=== PATIENT | female | born 1985 | race Caucasian/White ===

== ENCOUNTER → 2016-12-18 | Outpatient (CLI) | payer OTHER ==
--- NOTE | 2016-12-18 17:18 | CONS ---
DATE OF CONSULTATION: 12/18/2016 CONSULTATION/NEW PATIENT EVALUATION HISTORY OF PRESENT ILLNESS/SLEEP-WAKE EVALUATION: 31-year-old lady who has been evaluated in the sleep center for snoring, witnessed episodes of stopped breathing and excessive daytime sleepiness. SLEEP SCHEDULE: The patient usual sleep schedule from around 10:00 p.m. to 5:15 to 6:00 a.m. on working days and from 10:00 p.m. to 7:00 a.m. on weekends. FALLING ASLEEP: Sometimes she has problem with falling asleep. The patient has a TV set in bedroom. DURING SLEEP: She wakes up from sleep up to 3 times with one episode of nocturia. She snores. Has witnessed episodes of stopped breathing during the sleep. By herself she wakes up with gasping for air and choking. Positive history of sweating during sleep for last 5 years. Patient increased her weight around 135 pounds up to around 185 pounds. DURING THE DAY/WAKE STATE: In the morning she wakes up tired, has problems to pay attention, falling asleep during the day, worrying about her sleep, has problems with memory, concentration and irritability and depression. [place] Sleepiness Scale significantly increased to 17. No history hypnagogical hallucinations, sleep paralysis or cataplexy. Past medical history is positive for asthma, allergies, irregular menstrual periods, polycystic ovary syndrome, vitamin D deficiency. PAST SURGICAL HISTORY: None. SOCIAL HISTORY: Negative for smoking. Alcohol consumption occasional. REVIEW OF SYSTEMS: Awakenings from sleep, sleepiness during the day. No fevers. No double vision. No recent chest pain. No shortness of breath. No abdominal pain. No bleeding episodes. No blood in urine. No seizure episodes. FAMILY HISTORY: Hypertension, angina, heart problems, stroke, arthritis, asthma, sleep apnea, snoring, cancer, diabetes. PHYSICAL EXAMINATION: GENERAL: lady without distress. BP 110/72, HR 56, RR 16. Height 5 foot 3. Weight 165. BMI 29.2. Neck 14-1/4 inches in circumference. Temperature 97.9. Oxygen saturation at room air 98%. HEENT: PERRLA, EOMI evaluation of oropharynx showed moderately to extremely low position of soft palate. Tonsils present. Small oropharyngeal air space, and slight restriction of nasal breathing. NECK: Supple. No JVD. Thyroid is not palpable. LUNGS: Clear to percussion and to auscultation. Good air exchange. No wheezing or rhonchi. HEART: S1, S2 regular. No murmurs, gallops or rubs. ABDOMEN: Slightly obese. Soft and nontender. Bowel sounds are present. No organomegaly appreciated. EXTREMITIES: No clubbing or cyanosis. MANAGER PHOTO: Awake, alert, and oriented x3. Cranial nerves 2 to 7 intact. There is no fasciculation or atrophy noted. No focal deficits observed. IMPRESSION: 1. Snoring, witnessed episodes of stopped breathing during sleep, small oropharyngeal air space, with low position of soft palate, and some increasing size of tonsils, obstructive sleep apnea-hypopnea syndrome. 2. Overweight, borderline obesity, BMI 29.2. 3. Patient presented with symptoms of excessive daytime sleepiness, [place] sleepiness scale increased significantly to 17. Differential diagnoses include hypersomnia but no history of cataplexy, hypnogogical hallucinations or sleep paralysis, which is against narcolepsy. 4. Asthma. 5. Allergies. 6. Polycystic ovary syndrome. 7. Vitamin D deficiency. PLAN: 1. Polysomnography for evaluation of patient's breathing during sleep. 2. CPAP/BiPAP titration if sleep study confirms obstructive sleep apnea-hypopnea syndrome. 3. Preferable position during sleep on the side. 4. No driving if patient feels any sleepiness. Patient is aware of civil and criminal liability for unsafe driving. 5. I will see patient for follow-up visit to explain results of the testing and following plan. Thank you very much for referring this patient for consultation. Sincerely, Davey Gonzalez MD, PhD, FAASM. Diplomat of [employer], Sleep Medicine Board by [employer] Consultant of [facility] [place]
== END | disposition home or self-care (01) ==
LOC: SLEEP 14:31
PROVIDERS: ATTEND Internal Medicine
DX: G47.33 Obstructive sleep apnea (adult) (pediatric) (principal); E66.3 Overweight; Z68.29 Body mass index [BMI] 29.0-29.9, adult; G47.10 Hypersomnia, unspecified; J45.909 Unspecified asthma, uncomplicated; Z91.09 Other allergy status, other than to drugs and biological substances; E28.2 Polycystic ovarian syndrome; E55.9 Vitamin D deficiency, unspecified
CPT/HCPCS: 99211

== ENCOUNTER → 2017-01-19 | Outpatient (CLI) | payer OTHER ==
--- NOTE | 2017-01-19 14:13 | MM ---
Reason for exam: clinical finding. Last mammogram was performed 6 years and 8 months ago. History: Patient is nulliparous. Family history of breast cancer in paternal aunt and breast cancer in paternal grandmother. Indicated problem(s): lump or thickening in the left breast. Physical Findings: Nurse Summary: 1 x 0.5cm nodule in the left breast at 12 o'clock (nurse ts). MG 3D Diag Mammo W/Cad SKIP Bilateral CC and MLO view(s) were taken. Prior study comparison: May 09, 2010, bilateral diagnostic digital mammog. The breast tissue is heterogeneously dense. This may lower the sensitivity of mammography. Benign calcifications. No significant new findings when compared with previous films. These results were verbally communicated with the patient and result sheet given to the patient on 01/19/17. ASSESSMENT: Benign, BI-RAD 2 RECOMMENDATION: Routine screening mammogram of both breasts at age 38. Manage patient on a clinical basis.
--- NOTE | 2017-01-19 14:14 | USB ---
Reason for exam: additional evaluation requested from abnormal screening. History: Patient is nulliparous. Family history of breast cancer in paternal aunt and breast cancer in paternal grandmother. US Breast Limited LT Left breast ultrasound demonstrates no cystic or solid lesion seen. These results were verbally communicated with the patient and result sheet given to the patient on 01/19/17. ASSESSMENT: Benign, BI-RAD 2 RECOMMENDATION: Routine screening mammogram of both breasts at age 38. Manage patient on a clinical basis.
== END ==
LOC: RADMAMWWP 08:50
PROVIDERS: ATTEND Family Medicine
DX: N63 Unspecified lump in breast (principal)
CPT/HCPCS: 76642; G0204; G0279

== ENCOUNTER → 2017-02-12 | Outpatient (CLI) | payer OTHER ==
--- NOTE | 2017-02-13 11:45 | ECHOF ---
Referral Reason:R00.2 Palpitations MEASUREMENTS -------- HEIGHT: 162.6 cm WEIGHT: 75.3 kg BP: 121/68 RVIDd: 2.7 cm (< 3.3) IVSd: 0.9 cm (0.6 - 1.1) LVIDd: 4.3 cm (3.9 - 5.3) LVPWd: 0.9 cm (0.6 - 1.1) IVSs: 1.3 cm LVIDs: 3.0 cm LVPWs: 1.3 cm LA Diam: 2.8 cm (2.7 - 3.8) LAESV Index (A-L): 28.13 ml/m Ao Diam: 2.3 cm (2.0 - 3.7) AV Cusp: 1.5 cm (1.5 - 2.6) LA Diam: 2.8 cm (2.7 - 3.8) MV EXCURSION: 12.755 mm (> 18.000) MV EF SLOPE: 115 mm/s (70 - 150) EPSS: 0.3 cm MV E Arcadio: 1.09 m/s MV DecT: 241 ms MV A Arcadio: 0.46 m/s MV E/A Ratio: 2.37 RAP: 5.00 mmHg RVSP: 23.58 mmHg FINDINGS -------- Sinus rhythm with extra systolic beats. This was a technically good study. The left ventricular size is normal. Left ventricular wall thickness is normal. Overall left ventricular systolic function is normal with, an EF between 55 - 60 %. The right ventricle is normal in size. Normal LA size by volume 22+/-6 ml/m2. The right atrium is normal in size. The aortic valve is trileaflet and appears structurally normal. The mitral valve is normal. There is trace mitral regurgitation. Mild tricuspid regurgitation present. Right ventricular systolic pressure is normal at < 35 mmHg. There is no pulmonic regurgitation present. The aortic root size is normal. Normal inferior vena cava with normal inspiratory collapse consistent with estimated right atrial pressure of 5 mmHg. There is no pericardial effusion. CONCLUSIONS -------- 1. Sinus rhythm with extra systolic beats. 2. There is no pulmonic regurgitation present. 3. The aortic root size is normal. 4. Normal inferior vena cava with normal inspiratory collapse consistent with estimated right atrial pressure of 5 mmHg. 5. There is no pericardial effusion. 6. This was a technically good study. 7. Left ventricular wall thickness is normal. 8. Overall left ventricular systolic function is normal with, an EF between 55 - 60 %. 9. Normal LA size by volume 22+/-6 ml/m2. 10. The aortic valve is trileaflet and appears structurally normal. 11. There is trace mitral regurgitation. 12. Mild tricuspid regurgitation present. 13. Right ventricular systolic pressure is normal at < 35 mmHg. BOAT PAINTER: Diana Mckeon RDCS
== END | disposition home or self-care (01) ==
LOC: RADECHMAIN 16:19
PROVIDERS: ATTEND Family Medicine
DX: I07.1 Rheumatic tricuspid insufficiency (principal)
CPT/HCPCS: 93306

== ENCOUNTER 2017-07-08 20:34 | Emergency (ER) | payer OTHER ==
[2017-07-08 21:14] VITALS: RESP 16
[2017-07-08] MEDS ORDERED: SODIUM CHLORIDE 0.9% 500 ML IV STA (21:24)
[2017-07-08] MEDS ORDERED: ONDANSETRON 4 MG/2 ML VIAL IVP STA (21:24)
--- NOTE | 2017-07-08 21:37 | ED ---
Abdominal Pain HPI - General Chief Complaint: Abdominal Pain Stated Complaint: gallbladder Time Seen by Provider: 07/08/17 21:23 Source: patient Mode of arrival: ambulatory Limitations: no limitations - History of Present Illness Initial Comments: This patient is a 31-year-old woman with some right upper quadrant abdominal pain. She states that the pain is been going on for approximately one week. She describes it as aching, constant, it was initially mild but now has become more moderate. is occasionally worse with food and sometimes with pressing on the area. She has not noted relieving factors. Patient states that she went to her primary care physician and they were concerned about possibility of gallbladder. She was to have an ultrasound performed on Thursday but she was instructed the pain is worsened to go to the emergency department. As this developed she comes to be seen tonight. She has not had fever or chills. No chest pain, cough, shortness of breath, hemoptysis. No change in urination or bowel movements. MD Complaint: abdominal pain Onset/Timin -: week(s) Location: RUQ Radiation: R flank Migration to: no migration Severity: moderate Quality: aching, burning Consistency: constant Improves With: nothing Worsens With: eating, movement Associated Symptoms: nausea - Related Data Home Medications Medication Instructions Recorded Confirmed Albuterol Inhaler [Ventolin Hfa 1 - 2 puff INHALATION RT-QID PRN 07/08/17 Inhaler] Cholecalciferol [Vitamin D3] 1,000 unit PO DAILY 07/08/17 07/08/17 Previous Rx's Medication Instructions Recorded Famotidine [Pepcid] 20 mg PO DAILY #14 tablet 07/08/17 Ondansetron Odt [Zofran ODT] 4 mg PO Q8HR PRN #10 tab 07/08/17 Allergies Allergy/AdvReac Type Severity Reaction Status Date / Time Penicillins Allergy Rash/Hives Verified 07/08/17 21:15 Sulfa (Sulfonamide Allergy Rash/Hives Verified 07/08/17 21:56 Antibiotics) Review of Systems ROS Statement: Those systems with pertinent positive or pertinent negative responses have been documented in the HPI. ROS Other: All systems not noted in ROS Statement are negative. Constitutional: Denies: fever, chills, weakness Respiratory: Denies: cough, dyspnea, wheezes Cardiovascular: Denies: chest pain, palpitations, edema Gastrointestinal: Reports: abdominal pain, nausea. Denies: vomiting, diarrhea, constipation, melena, hematochezia Genitourinary: Reports: abnormal menses (States last period was in April). Denies: dysuria, hematuria Musculoskeletal: Denies: back pain Skin: Denies: rash Neurological: Denies: headache, weakness, numbness Past Medical History Past Medical History: Asthma Additional Past Medical History / Comment(s): polycystic ovarian syndrome, heart murmur History of Any Multi-Drug Resistant Organisms: None Reported Past Surgical History: No Surgical Hx Reported Past Anesthesia/Blood Transfusion Reactions: No Reported Reaction Past Psychological History: No Psychological Hx Reported Smoking Status: Never smoker Past Alcohol Use History: None Reported Past Drug Use History: None Reported - Past Family History Mother Family Medical History: No Reported History General Exam Limitations: no limitations General appearance: alert, in no apparent distress Head exam: Present: atraumatic, normocephalic, normal inspection Eye exam: Present: normal appearance. Absent: scleral icterus, conjunctival injection ENT exam: Present: normal oropharynx, mucous membranes moist Neck exam: Present: normal inspection Respiratory exam: Present: normal lung sounds bilaterally. Absent: respiratory distress, wheezes, rales, rhonchi, stridor Cardiovascular Exam: Present: regular rate, normal rhythm, normal heart sounds. Absent: systolic murmur, diastolic murmur, rubs, gallop GI/Abdominal exam: Present: soft, tenderness (Mild right upper quadrant tenderness without rebound or guarding), normal bowel sounds. Absent: distended , guarding, rebound, rigid, mass, pulsatile mass, hernia Extremities exam: Present: normal inspection, normal capillary refill. Absent: pedal edema, calf tenderness Back exam: Present: normal inspection. Absent: CVA tenderness (R), CVA tenderness (L) Neurological exam: Present: alert Skin exam: Present: warm, dry, intact, normal color. Absent: rash Course Vital Signs 07/08/17 21:10 Temperature 98.5 F Pulse Rate 55 L Respiratory 16 Rate Blood Pressure 122/77 O2 Sat by Pulse 98 Oximetry Medical Decision Making - Lab Data Result diagrams: 07/08/17 21:49 07/08/17 21:49 Lab Results 07/08/17 07/08/17 07/08/17 Range/Units 21:49 21:49 21:49 WBC 6.4 (3.8-10.6) k/uL RBC 4.62 (3.80-5.40) m/uL Hgb 13.0 (11.4-16.0) gm/dL Hct 39.0 (34.0-46.0) % MCV 84.6 (80.0-100.0) fL MCH 28.2 (25.0-35.0) pg MCHC 33.4 (31.0-37.0) g/dL RDW 14.5 (11.5-15.5) % Plt Count 208 (150-450) k/uL Neutrophils % 59 % Lymphocytes % 30 % Monocytes % 5 % Eosinophils % 2 % Basophils % 1 % Neutrophils # 3.8 (1.3-7.7) k/uL Lymphocytes # 1.9 (1.0-4.8) k/uL Monocytes # 0.4 (0-1.0) k/uL Eosinophils # 0.2 (0-0.7) k/uL Basophils # 0.1 (0-0.2) k/uL Sodium 139 (137-145) mmol/L Potassium 4.1 (3.5-5.1) mmol/L Chloride 106 (98-107) mmol/L Carbon Dioxide 26 (22-30) mmol/L Anion Gap 7 mmol/L BUN 17 (7-17) mg/dL Creatinine 0.82 (0.52-1.04) mg/dL Est GFR (MDRD) Af Amer >60 (>60 ml/min/1.73 sqM) Est GFR (MDRD) Non-Af >60 (>60 ml/min/1.73 sqM) Glucose 90 (74-99) mg/dL Calcium 9.0 (8.4-10.2) mg/dL Total Bilirubin 0.3 (0.2-1.3) mg/dL AST 20 (14-36) U/L ALT 29 (9-52) U/L Alkaline Phosphatase 51 (38-126) U/L Total Protein 6.8 (6.3-8.2) g/dL Albumin 4.0 (3.5-5.0) g/dL Amylase 54 (30-110) U/L Lipase 184 (23-300) U/L Urine Color Urine Appearance (Clear) Urine pH (5.0-8.0) Ur Specific [employer] (1.001-1.035) Urine Protein (Negative) Urine Glucose (UA) (Negative) Urine Ketones (Negative) Urine Blood (Negative) Urine Nitrite (Negative) Urine Bilirubin (Negative) Urine Urobilinogen (<2.0) mg/dL Ur Leukocyte Esterase (Negative) Urine RBC (0-5) /hpf Urine WBC (0-5) /hpf Ur Squamous Epith Cells (0-4) /hpf Urine HCG, Qual Not Detected (Not Detectd) 07/08/17 Range/Units 21:49 WBC (3.8-10.6) k/uL RBC (3.80-5.40) m/uL Hgb (11.4-16.0) gm/dL Hct (34.0-46.0) % MCV (80.0-100.0) fL MCH (25.0-35.0) pg MCHC (31.0-37.0) g/dL RDW (11.5-15.5) % Plt Count (150-450) k/uL Neutrophils % % Lymphocytes % % Monocytes % % Eosinophils % % Basophils % % Neutrophils # (1.3-7.7) k/uL Lymphocytes # (1.0-4.8) k/uL Monocytes # (0-1.0) k/uL Eosinophils # (0-0.7) k/uL Basophils # (0-0.2) k/uL Sodium (137-145) mmol/L Potassium (3.5-5.1) mmol/L Chloride (98-107) mmol/L Carbon Dioxide (22-30) mmol/L Anion Gap mmol/L BUN (7-17) mg/dL Creatinine (0.52-1.04) mg/dL Est GFR (MDRD) Af Amer (>60 ml/min/1.73 sqM) Est GFR (MDRD) Non-Af (>60 ml/min/1.73 sqM) Glucose (74-99) mg/dL Calcium (8.4-10.2) mg/dL Total Bilirubin (0.2-1.3) mg/dL AST (14-36) U/L ALT (9-52) U/L Alkaline Phosphatase (38-126) U/L Total Protein (6.3-8.2) g/dL Albumin (3.5-5.0) g/dL Amylase (30-110) U/L Lipase (23-300) U/L Urine Color Light Yellow Urine Appearance Cloudy H (Clear) Urine pH 6.5 (5.0-8.0) Ur Specific [employer] 1.018 (1.001-1.035) Urine Protein Negative (Negative) Urine Glucose (UA) Negative (Negative) Urine Ketones Negative (Negative) Urine Blood Negative (Negative) Urine Nitrite Negative (Negative) Urine Bilirubin Negative (Negative) Urine Urobilinogen <2.0 (<2.0) mg/dL Ur Leukocyte Esterase Moderate H (Negative) Urine RBC 1 (0-5) /hpf Urine WBC 6 H (0-5) /hpf Ur Squamous Epith Cells 7 H (0-4) /hpf Urine HCG, Qual (Not Detectd) Disposition Clinical Impression: Abdominal pain Disposition: HOME SELF-CARE Condition: Good Instructions: Abdominal Pain (ED) Prescriptions: Famotidine [Pepcid] 20 mg PO DAILY #14 tablet Ondansetron Odt [Zofran ODT] 4 mg PO Q8HR PRN #10 tab PRN Reason: Nausea Referrals: Twila Chun DO [Primary Care Provider] - 1-2 days
[2017-07-08 22:02] LABS: Basophils # (A) 0.1 k/uL (0-0.2); Basophils % (A) 1 %; CH 28.9; CHCM 34.3; Eosinophils # (A) 0.2 k/uL (0-0.7); Eosinophils % (A) 2 %; HDW 2.58; Luc # (Auto) 0.11; Luc % (Auto) 2; Lymphocytes # (A) 1.9 k/uL (1.0-4.8); Lymphocytes % (A) 30 %; MCH 28.2 pg (25.0-35.0); MCHC 33.4 g/dL (31.0-37.0); MCV 84.6 fL (80.0-100.0); Monocytes # (A) 0.4 k/uL (0-1.0); Monocytes % (A) 5 %; Neutrophils # (A) 3.8 k/uL (1.3-7.7); Neutrophils % (A) 59 %; RBC 4.62 m/uL (3.80-5.40); RDW 14.5 % (11.5-15.5); WBC 6.4 k/uL (3.8-10.6); WBC (Perox) 6.21
[2017-07-08 22:13] LABS: ALT 29 U/L (9-52); AST 20 U/L (14-36); Alkaline Phosphatase 51 U/L (38-126); Amylase 54 U/L (30-110); Anion Gap 7 mmol/L; Blood Urea Nitrogen 17 mg/dL (7-17); Carbon Dioxide 26 mmol/L (22-30); Chloride 106 mmol/L (98-107); Glucose 90 mg/dL (74-99); Non-African American GFR(MDRD) >60 (>60 ml/min/1.73 sqM); Potassium 4.1 mmol/L (3.5-5.1); Sodium 139 mmol/L (137-145); Total Bilirubin 0.3 mg/dL (0.2-1.3); Total Protein 6.8 g/dL (6.3-8.2)
[2017-07-08 22:18] LABS: Appearance,Urine Cloudy (Clear); Bilirubin,Urine Negative (Negative); Glucose,Urine (UA) Negative (Negative); Ketones,Urine Negative (Negative); Leukocyte Esterase,Urine Moderate (Negative); Nitrite,Urine Negative (Negative); PH, Urine 6.5 (5.0-8.0); Particle Count 3202; Protein,Urine Negative (Negative); RBC,Urine 1 /hpf (0-5); Specific Gravity,Urine 1.018 (1.001-1.035); Squamous Epithelial Cell,Urine 7 /hpf (0-4); UA Billing (MACRO vs. MICRO) MICRO; Urobilinogen,Urine <2.0 mg/dL (<2.0); WBC,Urine 6 /hpf (0-5)
--- NOTE | 2017-07-08 22:51 | US ---
ADDENDUM - Added by Memo Desai MD on 07/14/2017 9:56 PM (-04:00) This is a US abdomen Limited exam EXAM: US Abdomen Complete CLINICAL HISTORY: Reason: Pain, Attention biliary tract. TECHNIQUE: Real-time ultrasound of the abdomen (complete) with image documentation. COMPARISON: No relevant prior studies available. FINDINGS: Liver: Unremarkable. No mass. No intrahepatic bile duct dilation. Gallbladder: Unremarkable. No gallstones. Common bile duct: Unremarkable as visualized. Measures up to 0.4 cm in diameter. No stones. No dilation. Pancreas: Obscured by gas. Kidneys: Measures up to 10.9 cm in length. No stones. No solid mass. No hydronephrosis. Spleen: Unremarkable. No splenomegaly. IMPRESSION: Normal abdominal ultrasound.
[2017-07-08 23:34] VITALS: BP 127/53; PULSE 57; TEMP 98.7
== END 2017-07-08 23:30 | disposition home or self-care (01) ==
LOC: EC 20:34
DX: R10.11 Right upper quadrant pain (principal); Z87.42 Personal history of other diseases of the female genital tract; Z79.899 Other long term (current) drug therapy; Z88.0 Allergy status to penicillin; Z88.2 Allergy status to sulfonamides
CPT/HCPCS: 36415; 76705; 80053; 81001; 81025; 82150; 83690; 85025; 96360; 99284

== ENCOUNTER 2018-08-11 15:57 | Observation (INO) | payer OTHER ==
[2018-08-11 17:30] LABS: Basophils % (A) 0 %; Eosinophils # (A) 0.1 k/uL (0-0.7); Eosinophils % (A) 1 %; HCT 38.9 % (34.0-46.0); HGB 12.9 gm/dL (11.4-16.0); Lymphocytes % (A) 8 %; MCH 27.6 pg (25.0-35.0); MCHC 33.3 g/dL (31.0-37.0); MCV 83.1 fL (80.0-100.0); Mean Platelet Volume 8.2; Monocytes # (A) 0.6 k/uL (0-1.0); Monocytes % (A) 5 %; Neutrophils # (A) 11.1 k/uL (1.3-7.7); Neutrophils % (A) 86 %; Platelet Count 218 k/uL (150-450); RBC 4.68 m/uL (3.80-5.40); RDW 13.9 % (11.5-15.5); WBC 12.9 k/uL (3.8-10.6)
[2018-08-11 17:37] LABS: Appearance,Urine Cloudy (Clear); Bacteria,Urine Few /hpf; Bilirubin,Urine Negative (Negative); Blood,Urine Negative (Negative); Color,Urine Yellow; Glucose,Urine (UA) Negative (Negative); Ketones,Urine Negative (Negative); Leukocyte Esterase,Urine Moderate (Negative); Mucus,Urine Occasional /hpf; Nitrite,Urine Negative (Negative); PH, Urine 6.5 (5.0-8.0); Protein,Urine Negative (Negative); RBC,Urine 3 /hpf (0-5); Specific Gravity,Urine 1.008 (1.001-1.035); Squamous Epithelial Cell,Urine 14 /hpf (0-4); Urobilinogen,Urine <2.0 mg/dL (<2.0); WBC,Urine 10 /hpf (0-5)
[2018-08-11 17:39] LABS: ALT 16 U/L (9-52); AST 13 U/L (14-36); Albumin 4.3 g/dL (3.5-5.0); Alkaline Phosphatase 57 U/L (38-126); Amylase 49 U/L (30-110); Anion Gap 8 mmol/L; Blood Urea Nitrogen 7 mg/dL (7-17); Calcium 9.2 mg/dL (8.4-10.2); Carbon Dioxide 29 mmol/L (22-30); Chloride 102 mmol/L (98-107); Glucose 101 mg/dL (74-99); Lipase 41 U/L (23-300); Potassium 4.4 mmol/L (3.5-5.1); Sodium 139 mmol/L (137-145); Total Bilirubin 0.6 mg/dL (0.2-1.3); Total Protein 7.4 g/dL (6.3-8.2)
[2018-08-11] MEDS ORDERED: ONDANSETRON 4 MG/2 ML VIAL IVP STA (18:04)
--- NOTE | 2018-08-11 18:07 | ED ---
General Adult HPI - General Chief complaint: Abdominal Pain Stated complaint: poss appendicitis, sent by Time Seen by Provider: 08/11/18 16:20 Source: patient, RN notes reviewed Mode of arrival: wheelchair Limitations: no limitations - History of Present Illness Initial comments: Patient had a [facility] orders put in my name on the triage [facility]. Patient comes in today at 33 years of age complaining of right lower quadrant abdominal pain. Patient states started the epigastric region yesterday and has progressed over the right lower quadrant. Patient states she's had vomiting and nausea since yesterday. Patient states with her primary medical care doctor in the center the emergency department. IV. Patient denies any fever or chills. Patient denies any diarrhea. Patient denies any dysuria hematuria urinary frequency. Patient denies any back pain. Patient states the pain is mostly in the right lower quadrant at this point time. Patient denies any chest pain difficulty breathing or shortness of breath. Patient denies any leg swelling or calf tenderness. - Related Data Home Medications Medication Instructions Recorded Confirmed Albuterol Inhaler [Ventolin Hfa 1 - 2 puff INHALATION RT-QID PRN 07/08/17 Inhaler] Multivit with Calcium,Iron,Min 1 tab PO DAILY 08/11/18 08/11/18 [Women's Multivitamin] Sertraline [Zoloft] 50 mg PO DAILY 08/11/18 08/11/18 Allergies Allergy/AdvReac Type Severity Reaction Status Date / Time Penicillins Allergy Rash/Hives Verified 08/11/18 18:34 Sulfa (Sulfonamide Allergy Rash/Hives Verified 08/11/18 18:34 Antibiotics) Review of Systems ROS Statement: Those systems with pertinent positive or pertinent negative responses have been documented in the HPI. ROS Other: All systems not noted in ROS Statement are negative. Past Medical History Past Medical History: Asthma Additional Past Medical History / Comment(s): polycystic ovarian syndrome, heart murmur History of Any Multi-Drug Resistant Organisms: None Reported Past Surgical History: No Surgical Hx Reported Past Anesthesia/Blood Transfusion Reactions: No Reported Reaction Past Psychological History: No Psychological Hx Reported Smoking Status: Never smoker Past Alcohol Use History: None Reported Past Drug Use History: None Reported - Past Family History Mother Family Medical History: No Reported History General Exam - General Exam Comments Initial Comments: GENERAL: Patient is well-developed and well-nourished. Patient is nontoxic and well- hydrated and is in mild distress. ENT: Neck is soft and supple. No significant lymphadenopathy is noted. Oropharynx is clear. Moist mucous membranes. Neck has full range of motion without eliciting any pain. EYES: The sclera were anicteric and conjunctiva were pink and moist. Extraocular movements were intact and pupils were equal round and reactive to light. Eyelids were unremarkable. PULMONARY: Unlabored respirations. Good breath sounds bilaterally. No audible rales rhonchi or wheezing was noted. CARDIOVASCULAR: There is a regular rate and rhythm without any murmurs gallops or rubs. ABDOMEN: Lower quadrant tenderness with rebound SKIN: Skin is clear with no lesions or rashes and otherwise unremarkable. NEUROLOGIC: Patient is alert and oriented x3. Cranial nerves II through XII are grossly intact. Motor and sensory are also intact. Normal speech, volume and content. Symmetrical smile. MUSCULOSKELETAL: Normal extremities with adequate strength and full range of motion. No lower extremity swelling or edema. No calf tenderness. LYMPHATICS: No significant lymphadenopathy is noted PSYCHIATRIC: Normal psychiatric evaluation. Limitations: no limitations Course Vital Signs 08/11/18 08/11/18 16:19 19:15 Temperature 99.3 F Pulse Rate 65 59 L Respiratory 20 17 Rate Blood Pressure 124/75 121/60 O2 Sat by Pulse 99 97 Oximetry Medical Decision Making - Medical Decision Making CAT scan shows acute appendicitis. Spoke with Dr. Clark he agreed to admit the patient admitted the patient started patient on antibiotics I wrote admitting orders. - Lab Data Result diagrams: 08/11/18 17:18 08/11/18 17:18 Lab Results 08/11/18 08/11/18 08/11/18 Range/Units 17:18 17:18 17:18 WBC 12.9 H (3.8-10.6) k/uL RBC 4.68 (3.80-5.40) m/uL Hgb 12.9 (11.4-16.0) gm/dL Hct 38.9 (34.0-46.0) % MCV 83.1 (80.0-100.0) fL MCH 27.6 (25.0-35.0) pg MCHC 33.3 (31.0-37.0) g/dL RDW 13.9 (11.5-15.5) % Plt Count 218 (150-450) k/uL Neutrophils % 86 % Lymphocytes % 8 % Monocytes % 5 % Eosinophils % 1 % Basophils % 0 % Neutrophils # 11.1 H (1.3-7.7) k/uL Lymphocytes # 1.0 (1.0-4.8) k/uL Monocytes # 0.6 (0-1.0) k/uL Eosinophils # 0.1 (0-0.7) k/uL Basophils # 0.0 (0-0.2) k/uL Sodium 139 (137-145) mmol/L Potassium 4.4 (3.5-5.1) mmol/L Chloride 102 (98-107) mmol/L Carbon Dioxide 29 (22-30) mmol/L Anion Gap 8 mmol/L BUN 7 (7-17) mg/dL Creatinine 0.68 (0.52-1.04) mg/dL Est GFR (CKD-EPI)AfAm >90 (>60 ml/min/1.73 sqM) Est GFR (CKD-EPI)NonAf >90 (>60 ml/min/1.73 sqM) Glucose 101 H (74-99) mg/dL Calcium 9.2 (8.4-10.2) mg/dL Total Bilirubin 0.6 (0.2-1.3) mg/dL AST 13 L (14-36) U/L ALT 16 (9-52) U/L Alkaline Phosphatase 57 (38-126) U/L Total Protein 7.4 (6.3-8.2) g/dL Albumin 4.3 (3.5-5.0) g/dL Amylase 49 (30-110) U/L Lipase 41 (23-300) U/L Urine Color Urine Appearance (Clear) Urine pH (5.0-8.0) Ur Specific [employer] (1.001-1.035) Urine Protein (Negative) Urine Glucose (UA) (Negative) Urine Ketones (Negative) Urine Blood (Negative) Urine Nitrite (Negative) Urine Bilirubin (Negative) Urine Urobilinogen (<2.0) mg/dL Ur Leukocyte Esterase (Negative) Urine RBC (0-5) /hpf Urine WBC (0-5) /hpf Ur Squamous Epith Cells (0-4) /hpf Urine Bacteria (None) /hpf Urine Mucus (None) /hpf Urine HCG, Qual Not Detected (Not Detectd) 08/11/18 Range/Units 17:18 WBC (3.8-10.6) k/uL RBC (3.80-5.40) m/uL Hgb (11.4-16.0) gm/dL Hct (34.0-46.0) % MCV (80.0-100.0) fL MCH (25.0-35.0) pg MCHC (31.0-37.0) g/dL RDW (11.5-15.5) % Plt Count (150-450) k/uL Neutrophils % % Lymphocytes % % Monocytes % % Eosinophils % % Basophils % % Neutrophils # (1.3-7.7) k/uL Lymphocytes # (1.0-4.8) k/uL Monocytes # (0-1.0) k/uL Eosinophils # (0-0.7) k/uL Basophils # (0-0.2) k/uL Sodium (137-145) mmol/L Potassium (3.5-5.1) mmol/L Chloride (98-107) mmol/L Carbon Dioxide (22-30) mmol/L Anion Gap mmol/L BUN (7-17) mg/dL Creatinine (0.52-1.04) mg/dL Est GFR (CKD-EPI)AfAm (>60 ml/min/1.73 sqM) Est GFR (CKD-EPI)NonAf (>60 ml/min/1.73 sqM) Glucose (74-99) mg/dL Calcium (8.4-10.2) mg/dL Total Bilirubin (0.2-1.3) mg/dL AST (14-36) U/L ALT (9-52) U/L Alkaline Phosphatase (38-126) U/L Total Protein (6.3-8.2) g/dL Albumin (3.5-5.0) g/dL Amylase (30-110) U/L Lipase (23-300) U/L Urine Color Yellow Urine Appearance Cloudy H (Clear) Urine pH 6.5 (5.0-8.0) Ur Specific [employer] 1.008 (1.001-1.035) Urine Protein Negative (Negative) Urine Glucose (UA) Negative (Negative) Urine Ketones Negative (Negative) Urine Blood Negative (Negative) Urine Nitrite Negative (Negative) Urine Bilirubin Negative (Negative) Urine Urobilinogen <2.0 (<2.0) mg/dL Ur Leukocyte Esterase Moderate H (Negative) Urine RBC 3 (0-5) /hpf Urine WBC 10 H (0-5) /hpf Ur Squamous Epith Cells 14 H (0-4) /hpf Urine Bacteria Few H (None) /hpf Urine Mucus Occasional H (None) /hpf Urine HCG, Qual (Not Detectd) Disposition Clinical Impression: Acute appendicitis Disposition: ADMITTED IP TO THIS HOSP Referrals: Twila Chun DO [Primary Care Provider] - 1-2 days Time of Disposition: 19:34
--- NOTE | 2018-08-11 18:42 | CT ---
EXAMINATION TYPE: CT abdomen pelvis w con DATE OF EXAM: 08/11/2018 COMPARISON: None HISTORY: Possible appendicitis, sent by Doctor CT DLP: 1145 mGycm Automated exposure control for dose reduction was used. TECHNIQUE: Helical acquisition of images was performed from the lung bases through the pelvis. CONTRAST: Performed without Oral Contrast and with IV Contrast, patient injected with 100 mL of Isovue 300. FINDINGS: Lung bases are clear. There is no pleural effusion. Heart size is normal. There is no pericardial eff usion. Liver spleen pancreas gallbladder appear normal. Bile ducts are not dilated. There is no adrenal mass. Kidneys show satisfactory contrast opacification. There is no hydronephrosi s. There is fat stranding and fluid in the right paracolic gutter. There is a thickened fluid-filled adan endix that measures 12 mm. There is no evidence of a bowel obstruction. There is no free air. There is no retroperitoneal adenop athy. There is no mesenteric adenopathy. Bladder distends smoothly. Uterus is anteverted. There is sm all amount of free fluid in the pelvis. Left ovary is slightly enlarged and measures 4.5 x 3.2 cm. Lumbar spine is intact. I see no bony destructive process. The soft tissues appear normal. There is n o evidence of inguinal hernia. There is small umbilical hernia that contains fat. IMPRESSION: THICKENED APPENDIX WITH FAT STRANDING AND FLUID IN THE RIGHT PARACOLIC GUTTER CONSISTENT WITH ACUTE A PPENDICITIS.
[2018-08-11] MEDS ORDERED: LEVOFLOXACIN 750MG-D5W PMX 750 MG in DEXTROSE/WATER 1 150ML.BAG IVPB STA (19:33)
[2018-08-11] MEDS ORDERED: SODIUM CHLORIDE 0.9% 1,000 ML IV ONE (19:35)
[2018-08-11] MEDS: HYDROmorphone 1 MG/ML 1 ML SYRINGE IVP PRN (20:21)
[2018-08-11] MEDS: METOCLOPRAMIDE 5 MG/ML 2 ML VIAL IVP SCH (20:23)
[2018-08-11 21:10] VITALS: BMI 28.1
[2018-08-11] MEDS: SODIUM CHLORIDE 0.9% 1,000 ML IV SCH (21:15)
[2018-08-12] MEDS: HYDROmorphone 1 MG/ML 1 ML SYRINGE IVP PRN ×2 (00:28→05:48)
[2018-08-12] MEDS: METOCLOPRAMIDE 5 MG/ML 2 ML VIAL IVP SCH ×2 (05:45→12:25)
[2018-08-12] MEDS: SODIUM CHLORIDE 0.9% 1,000 ML IV SCH (06:51)
--- NOTE | 2018-08-12 10:25 | P.GSHP ---
<Karley Owens - Last Filed: 08/12/18 10:15> History of Present Illness H&P Date: 08/12/18 33 -year-old Female presented to the emergency room to be evaluated for right lower quadrant abdominal pain. Patient stated that she did see her PCP who did advise the patient to come into the emergency room for persistent right lower quadrant abdominal pain worse with ambulation. Patient states she felt nauseated and did vomit. Patient reports that she did go to [facility] 48 hours prior and was seen in the emergency room. At that time she is being evaluated for mid epigastric discomfort. Patient stated they did do an ultrasound of her gallbladder was told "cyst" but no acute findings. Patient stated she had no fever chills. CAT scan of the abdomen and pelvis was obtained in the emergency room report indicate Consistent with acute appendicitis at The time of my exam patient continues to report having right upper quadrant abdominal pain with tenderness increases with movement White count on admission 12.9 low-grade temp of 99.3 currently on IV Levaquin. Past medical history polycystic ovarian syndrome. Asthma. Past surgical history none - Review of Systems Comment: Essentially unremarkable except as mentioned in the present illness Past Medical History Past Medical History: Asthma Additional Past Medical History / Comment(s): polycystic ovarian syndrome, heart murmur History of Any Multi-Drug Resistant Organisms: None Reported Past Surgical History: No Surgical Hx Reported Past Anesthesia/Blood Transfusion Reactions: No Reported Reaction Past Psychological History: Anxiety, Depression Smoking Status: Never smoker Past Alcohol Use History: Occasional Past Drug Use History: None Reported - Past Family History Mother Family Medical History: Myocardial Infarction ([place]), Osteoarthritis ([place]) Father Family Medical History: COPD, Myocardial Infarction ([place]) Medications and Allergies Home Medications Medication Instructions Recorded Confirmed Type Albuterol Inhaler [Ventolin Hfa 1 - 2 puff INHALATION RT-QID PRN 07/08/17 History Inhaler] Multivit with Calcium,Iron,Min 1 tab PO DAILY 08/11/18 08/11/18 History [Women's Multivitamin] Sertraline [Zoloft] 50 mg PO DAILY 08/11/18 08/11/18 History Allergies Allergy/AdvReac Type Severity Reaction Status Date / Time Penicillins Allergy Rash/Hives Verified 08/12/18 10:53 Sulfa (Sulfonamide Allergy Rash/Hives Verified 08/12/18 10:53 Antibiotics) Surgical - Exam Vital Signs Temp Pulse Resp BP Pulse Ox 99.3 F 65 20 124/75 99 08/11/18 16:19 08/11/18 16:19 08/11/18 16:19 08/11/18 16:19 08/11/18 16:19 GENERAL APPEARANCE: 33-year-old female patient is alert, oriented x 3 , in no acute distress. Nontoxic well hydrated VITAL SIGNS: Reviewed HEENT: Head is normocephalic and atraumatic. Pupils are equal and reactive. The nares are patent. Oropharynx is clear without lesions. NECK: Supple without lymphadenopathy. Traches midline. HEART: S1, S2. Regular rate and rhythm. No murmur noted denying chest pain LUNGS: No crackles or wheezes are heard adequate air movement bilaterally. ABDOMEN: Soft, positive tenderness right upper quadrant mild guarding nondistended with good bowel sounds. No peritoneal signs. No palpable organomegaly or masses. EXTREMITIES: Normal skin color and turgor. No cyanosis, rash, ulceration, clubbing or edema. Radial pedal pulses are 2/4 bilaterally. NEUROLOGICAL: No focal deficits. Strength and sensation are grossly intact. Results - Labs 08/11/18 17:18 08/11/18 17:18 Abnormal Lab Results - Last 24 Hours (Table) 08/11/18 08/11/18 08/11/18 Range/Units 17:18 17:18 17:18 WBC 12.9 H (3.8-10.6) k/uL Neutrophils # 11.1 H (1.3-7.7) k/uL Glucose 101 H (74-99) mg/dL AST 13 L (14-36) U/L Urine Appearance Cloudy H (Clear) Ur Leukocyte Esterase Moderate H (Negative) Urine WBC 10 H (0-5) /hpf Ur Squamous Epith Cells 14 H (0-4) /hpf Urine Bacteria Few H (None) /hpf Urine Mucus Occasional H (None) /hpf Diabetes panel 08/11/18 Range/Units 17:18 Sodium 139 (137-145) mmol/L Potassium 4.4 (3.5-5.1) mmol/L Chloride 102 (98-107) mmol/L Carbon Dioxide 29 (22-30) mmol/L BUN 7 (7-17) mg/dL Creatinine 0.68 (0.52-1.04) mg/dL Glucose 101 H (74-99) mg/dL Calcium 9.2 (8.4-10.2) mg/dL AST 13 L (14-36) U/L ALT 16 (9-52) U/L Alkaline Phosphatase 57 (38-126) U/L Total Protein 7.4 (6.3-8.2) g/dL Albumin 4.3 (3.5-5.0) g/dL Calcium panel 08/11/18 Range/Units 17:18 Calcium 9.2 (8.4-10.2) mg/dL Albumin 4.3 (3.5-5.0) g/dL Pituitary panel 08/11/18 Range/Units 17:18 Sodium 139 (137-145) mmol/L Potassium 4.4 (3.5-5.1) mmol/L Chloride 102 (98-107) mmol/L Carbon Dioxide 29 (22-30) mmol/L BUN 7 (7-17) mg/dL Creatinine 0.68 (0.52-1.04) mg/dL Glucose 101 H (74-99) mg/dL Calcium 9.2 (8.4-10.2) mg/dL Adrenal panel 08/11/18 Range/Units 17:18 Sodium 139 (137-145) mmol/L Potassium 4.4 (3.5-5.1) mmol/L Chloride 102 (98-107) mmol/L Carbon Dioxide 29 (22-30) mmol/L BUN 7 (7-17) mg/dL Creatinine 0.68 (0.52-1.04) mg/dL Glucose 101 H (74-99) mg/dL Calcium 9.2 (8.4-10.2) mg/dL Total Bilirubin 0.6 (0.2-1.3) mg/dL AST 13 L (14-36) U/L ALT 16 (9-52) U/L Alkaline Phosphatase 57 (38-126) U/L Total Protein 7.4 (6.3-8.2) g/dL Albumin 4.3 (3.5-5.0) g/dL Assessment and Plan Assessment: Impression Present on admission nausea vomiting with right upper quadrant abdominal pain suspect due to acute appendicitis Present on admission leukocytosis low-grade temp suspect due to acute appendicitis Computed tomography scan abdomen pelvis report indicate acute appendicitis Plan IV fluid for hydration IV Levaquin as ordered Pain control DVT and GI prophylaxis Keep nothing by mouth for scheduled laparoscopic appendectomy to be done today The above impression and plan of care have been discussed and directed by signing physician. Karley Owens nurse practitioner acting as scribe for signing physician. <Tenzin Clark - Last Filed: 08/12/18 11:24> Surgical - Exam Vital Signs Temp Pulse Resp BP Pulse Ox 99.3 F 65 20 124/75 99 18 16:19 18 16:19 18 16:19 08/11/18 16:19 08/11/18 16:19 Results - Labs 08/11/18 17:18 08/11/18 17:18 Abnormal Lab Results - Last 24 Hours (Table) 08/11/18 08/11/18 08/11/18 Range/Units 17:18 17:18 17:18 WBC 12.9 H (3.8-10.6) k/uL Neutrophils # 11.1 H (1.3-7.7) k/uL Glucose 101 H (74-99) mg/dL AST 13 L (14-36) U/L Urine Appearance Cloudy H (Clear) Ur Leukocyte Esterase Moderate H (Negative) Urine WBC 10 H (0-5) /hpf Ur Squamous Epith Cells 14 H (0-4) /hpf Urine Bacteria Few H (None) /hpf Urine Mucus Occasional H (None) /hpf Diabetes panel 08/11/18 Range/Units 17:18 Sodium 139 (137-145) mmol/L Potassium 4.4 (3.5-5.1) mmol/L Chloride 102 (98-107) mmol/L Carbon Dioxide 29 (22-30) mmol/L BUN 7 (7-17) mg/dL Creatinine 0.68 (0.52-1.04) mg/dL Glucose 101 H (74-99) mg/dL Calcium 9.2 (8.4-10.2) mg/dL AST 13 L (14-36) U/L ALT 16 (9-52) U/L Alkaline Phosphatase 57 (38-126) U/L Total Protein 7.4 (6.3-8.2) g/dL Albumin 4.3 (3.5-5.0) g/dL Calcium panel 08/11/18 Range/Units 17:18 Calcium 9.2 (8.4-10.2) mg/dL Albumin 4.3 (3.5-5.0) g/dL Pituitary panel 08/11/18 Range/Units 17:18 Sodium 139 (137-145) mmol/L Potassium 4.4 (3.5-5.1) mmol/L Chloride 102 (98-107) mmol/L Carbon Dioxide 29 (22-30) mmol/L BUN 7 (7-17) mg/dL Creatinine 0.68 (0.52-1.04) mg/dL Glucose 101 H (74-99) mg/dL Calcium 9.2 (8.4-10.2) mg/dL Adrenal panel 08/11/18 Range/Units 17:18 Sodium 139 (137-145) mmol/L Potassium 4.4 (3.5-5.1) mmol/L Chloride 102 (98-107) mmol/L Carbon Dioxide 29 (22-30) mmol/L BUN 7 (7-17) mg/dL Creatinine 0.68 (0.52-1.04) mg/dL Glucose 101 H (74-99) mg/dL Calcium 9.2 (8.4-10.2) mg/dL Total Bilirubin 0.6 (0.2-1.3) mg/dL AST 13 L (14-36) U/L ALT 16 (9-52) U/L Alkaline Phosphatase 57 (38-126) U/L Total Protein 7.4 (6.3-8.2) g/dL Albumin 4.3 (3.5-5.0) g/dL Assessment and Plan Plan: Acute appendicitis. We'll perform laparoscopic appendectomy
[2018-08-12] MEDS ORDERED: IV FLUID CONTINUATION 1,000 ML IV ONE (10:57)
[2018-08-12] MEDS ORDERED: ONDANSETRON 4 MG/2 ML VIAL IVP ONE (11:01)
[2018-08-12] MEDS ORDERED: HEPARIN SODIUM,PORCINE 5,000 UNIT/ML 1 ML VIAL SQ ONE (11:30)
[2018-08-12] MEDS ORDERED: NEOSTIGMINE 1 MG/ML 10 ML VIAL ONE (11:55)
[2018-08-12] MEDS ORDERED: GLYCOPYRROLATE 0.2 MG/ML 2 ML VIAL ONE (11:55)
[2018-08-12] MEDS ORDERED: LIDOCAINE 1% INJ 10MG/ML (20 ML MDV) ONE (11:55)
[2018-08-12] MEDS ORDERED: MIDAZOLAM 2 MG/2 ML VIAL ONE (11:55)
[2018-08-12] MEDS ORDERED: ROCURONIUM BROMIDE 10 MG/ML 10 ML VIAL IV ONE (11:55)
[2018-08-12] MEDS ORDERED: fentaNYL (PF) 50 MCG/ML 2 ML AMP ONE (11:55)
[2018-08-12] MEDS ORDERED: PROPOFOL 10 MG/ML 20 ML VIAL IV ONE (11:55)
[2018-08-12] MEDS ORDERED: BUPIVACAIN-EPI 0.5%-1:200,000 30 ML VIAL SQ ONE (12:19)
--- NOTE | 2018-08-12 12:27 | P.OP ---
Date of Procedure: 08/12/18 Preoperative Diagnosis: Acute appendicitis Postoperative Diagnosis: Acute appendicitis Procedure(s) Performed: Laparoscopic appendectomy Anesthesia: MARY Surgeon: Tenzin Clark Estimated Blood Loss (ml): 5 Pathology: other (Appendix) Condition: stable Disposition: PACU Description of Procedure: The patient's placed on the operating table in the supine position. The patient received general anesthesia. The abdomen was prepped and draped in the usual sterile fashion. The skin was anesthetized 1% local Xylocaine at the trocar sites. Using an 11 blade the skin was incised at the umbilicus. The umbilicus was grasped with a Goldfield clamp and then a Veress needle was placed into the peritoneal cavity. Position of the Veress needle was confirmed with positive drop test. After adequate insufflation a 5 mm trocar was placed into the peritoneal cavity. The abdomen was further insufflated. And then the laparoscope was placed in the peritoneal cavity. Next a 5 mm trocar was placed in the midline suprapubic position. And then a 10 mm trocar was placed in the midline epigastric position. The patient was rotated with the right side up and in Trendelenburg. The appendix was visualized. The appendix appeared to be inflamed. The appendix was grasped and then using the Harmonic scissors the mesoappendix was divided. A PDS Endoloop was then placed around the base of the appendix. And then the appendix was divided using Harmonic scissors. The appendix was placed into an Endo Catch and brought out through the 10 mm trocar site. The abdomen was irrigated. There is no bleeding seen. The trochars withdrawn. The skin was closed interrupted 3-0 Monocryl suture. Dermabond dressing was applied. Patient was sent to recovery room in stable condition.
[2018-08-12] MEDS: HYDROmorphone 1 MG/ML 1 ML SYRINGE IVP ONE ×4 (12:58→13:22)
[2018-08-12] MEDS ORDERED: KETOROLAC 30 MG/ML 1 ML VIAL IVP ONE (13:18)
[2018-08-12] MEDS ORDERED: ALBUTEROL NEBULIZED 2.5 MG/3 ML INHALATION PRN (13:51)
--- NOTE | 2018-08-12 14:04 | P.CONS ---
History of Present Illness - Reason for Consult Consult date: 08/12/18 Medical management Requesting physician: Tenzin Clark - Chief Complaint Laparoscopic appendectomy - History of Present Illness This is a 33-year-old female, patient of [facility]. She has a known past medical history of polycystic ovarian syndrome, asthma, anxiety and depression. Patient was brought into the hospital with complaints of abdominal pain and nausea and vomiting. Computed tomography scan of the abdomen had shown thickened appendix with fat stranding and fluid in the right pericolic gutter consistent with acute appendicitis. Patient went to the OR today for laparoscopic appendectomy with Dr. Clark. Patient admitted to Dr. Khan service. We've been consulted for medical management. White count 12.9. She is currently on Levaquin. Patient reports that pain is controlled. Denies any nausea vomiting currently. Denies any chest pain or shortness of breath. Denies any urinary symptoms. Her urinalysis is likely contamination. Will repeat urinalysis at this time. Review of Systems Please refer to HPI otherwise unremarkable Past Medical History Past Medical History: Asthma Additional Past Medical History / Comment(s): polycystic ovarian syndrome, heart murmur History of Any Multi-Drug Resistant Organisms: None Reported Past Surgical History: No Surgical Hx Reported Past Anesthesia/Blood Transfusion Reactions: No Reported Reaction Past Psychological History: Anxiety, Depression Smoking Status: Never smoker Past Alcohol Use History: Occasional Past Drug Use History: None Reported - Past Family History Mother Family Medical History: Myocardial Infarction ([place]), Osteoarthritis ([place]) Father Family Medical History: COPD, Myocardial Infarction ([place]) Medications and Allergies Home Medications Medication Instructions Recorded Confirmed Type Albuterol Inhaler [Ventolin Hfa 1 - 2 puff INHALATION RT-QID PRN 07/08/17 History Inhaler] Multivit with Calcium,Iron,Min 1 tab PO DAILY 08/11/18 08/11/18 History [Women's Multivitamin] Sertraline [Zoloft] 50 mg PO DAILY 08/11/18 08/11/18 History Allergies Allergy/AdvReac Type Severity Reaction Status Date / Time Penicillins Allergy Rash/Hives Verified 08/12/18 10:53 Sulfa (Sulfonamide Allergy Rash/Hives Verified 08/12/18 10:53 Antibiotics) Physical Exam Vitals: Vital Signs Temp Pulse Pulse Resp BP BP Pulse Ox 08/12/18 13:02 78 16 129/66 96 08/12/18 12:40 97.6 F 98 18 128/70 100 08/12/18 10:56 79 16 117/75 98 08/12/18 07:50 98.6 F 75 16 101/62 93 L 08/12/18 00:28 99.3 F 79 16 126/61 97 08/11/18 19:15 59 L 17 121/60 97 08/11/18 16:19 99.3 F 65 20 124/75 99 Intake and Output 08/11/18 08/12/18 08/12/18 22:59 06:59 14:59 Intake Total 800 Output Total 5 Balance 795 Intake: IV 800 Output: Estimated Blood Loss 5 Other: # Voids 1 1 Weight 74.389 kg Head normocephalic Neck supple Lungs clear to auscultation bilaterally no wheezing or crackles Heart regular rate and rhythm S1-S2, no rub or gallop Abdomen is soft tender incision site nondistended positive bowel sounds no hepatosplenomegaly Extremities no edema Neuro alert and orientated to 3 Results CBC & Chem 7: 08/11/18 17:18 08/11/18 17:18 Labs: Abnormal Lab Results - Last 24 Hours (Table) 08/11/18 08/11/18 08/11/18 Range/Units 17:18 17:18 17:18 WBC 12.9 H (3.8-10.6) k/uL Neutrophils # 11.1 H (1.3-7.7) k/uL Glucose 101 H (74-99) mg/dL AST 13 L (14-36) U/L Urine Appearance Cloudy H (Clear) Ur Leukocyte Esterase Moderate H (Negative) Urine WBC 10 H (0-5) /hpf Ur Squamous Epith Cells 14 H (0-4) /hpf Urine Bacteria Few H (None) /hpf Urine Mucus Occasional H (None) /hpf Assessment and Plan Assessment: 1. Acute appendicitis status post laparoscopic appendectomy. Continue Levaquin 2. Mild intermittent asthma: No evidence of exacerbation. Continue with albuterol inhaler as needed 3. Generalized anxiety disorder and depression. On Zoloft at home. Hold Zoloft for now while patient is on scheduled Reglan. Zoloft interacts with Reglan 4. Urinalysis: Moderate leukocyte esterase squamous epithelial cells. Patient is asymptomatic for UTI. Repeat urinalysis DVT prophylaxis subcu heparin and GI prophylaxis Pepcid Thank you for this consultation. We'll continue following during patient's hospitalization. Time with Patient: Greater than 30 (Greater than 60% of the total time spent in counseling and coordination of care. I performed an examination of the patient and discussed their management with the physician Professional Wrestler. I have reviewed the Physician Professional Wrestler's notes and agree with the documented findings and plan of care)
[2018-08-12] MEDS: ONDANSETRON 4 MG/2 ML VIAL IVP PRN (15:23)
[2018-08-12] MEDS ORDERED: LEVOFLOXACIN 750MG-D5W PMX 750 MG in DEXTROSE/WATER 1 150ML.BAG IVPB SCH (20:00)
[2018-08-12] MEDS: HEPARIN SODIUM,PORCINE 5,000 UNIT/ML 1 ML VIAL SQ SCH (20:41)
[2018-08-12 20:56] LABS: Appearance,Urine Turbid (Clear); Bacteria,Urine Many /hpf; Bilirubin,Urine Negative (Negative); Blood,Urine Trace (Negative); Budding Yeast,Urine Occasional /hpf; Color,Urine Yellow; Glucose,Urine (UA) Negative (Negative); Ketones,Urine Trace (Negative); Leukocyte Esterase,Urine Large (Negative); Mucus,Urine Many /hpf; Nitrite,Urine Negative (Negative); Protein,Urine Trace (Negative); RBC,Urine 5 /hpf (0-5); Specific Gravity,Urine 1.009 (1.001-1.035); Squamous Epithelial Cell,Urine 42 /hpf (0-4); Urobilinogen,Urine <2.0 mg/dL (<2.0); WBC,Urine 91 /hpf (0-5)
[2018-08-13] MEDS: SODIUM CHLORIDE 0.9% 1,000 ML IV SCH ×2 (00:50→03:38)
[2018-08-13] MEDS: HYDROmorphone 1 MG/ML 1 ML SYRINGE IVP PRN ×4 (00:50→14:20)
[2018-08-13] MEDS: ONDANSETRON 4 MG/2 ML VIAL IVP PRN ×2 (06:18→18:19)
[2018-08-13 07:08] LABS: Basophils % (A) 0 %; Eosinophils # (A) 0.1 k/uL (0-0.7); Eosinophils % (A) 1 %; HCT 33.2 % (34.0-46.0); HGB 10.8 gm/dL (11.4-16.0); Lymphocytes # (A) 1.2 k/uL (1.0-4.8); Lymphocytes % (A) 19 %; MCH 27.3 pg (25.0-35.0); MCHC 32.4 g/dL (31.0-37.0); Mean Platelet Volume 7.7; Monocytes # (A) 0.4 k/uL (0-1.0); Monocytes % (A) 6 %; Neutrophils # (A) 4.6 k/uL (1.3-7.7); Neutrophils % (A) 72 %; Platelet Count 185 k/uL (150-450); RBC 3.95 m/uL (3.80-5.40); RDW 13.8 % (11.5-15.5); WBC 6.3 k/uL (3.8-10.6)
[2018-08-13 07:26] LABS: ALT 13 U/L (9-52); AST 11 U/L (14-36); Alkaline Phosphatase 43 U/L (38-126); Anion Gap 4 mmol/L; Blood Urea Nitrogen 6 mg/dL (7-17); Calcium 8.2 mg/dL (8.4-10.2); Carbon Dioxide 29 mmol/L (22-30); Chloride 106 mmol/L (98-107); Glucose 92 mg/dL (74-99); Potassium 3.7 mmol/L (3.5-5.1); Sodium 139 mmol/L (137-145); Total Bilirubin 0.5 mg/dL (0.2-1.3); Total Protein 5.6 g/dL (6.3-8.2)
[2018-08-13] MEDS ORDERED: SERTRALINE 50 MG TAB PO SCH (09:00)
[2018-08-13] MEDS ORDERED: FAMOTIDINE 20 MG TAB PO SCH (09:00)
[2018-08-13] MEDS ORDERED: MULTIVITAMINS, THERA 1 EACH TAB PO SCH (09:00)
[2018-08-13] MEDS: HEPARIN SODIUM,PORCINE 5,000 UNIT/ML 1 ML VIAL SQ SCH (09:01)
--- NOTE | 2018-08-13 12:00 | P.DS ---
Providers Date of admission: 08/11/18 19:35 Expected date of discharge: 08/13/18 Attending physician: Tenzin Clark Consults: 08/12/18 13:14 Consult Physician Routine Consulting Provider: Jannet An Consult Reason/Comments: medical managment Do you want consulting provider notified?: Yes Primary care physician: [facility] Course: 33-year-old female presented to the emergency room for chief complaint of developing right lower quadrant abdominal pain. Patient stated that she did see her primary care provider the day before for persistent right lower quadrant abdominal pain which was worse with walking. states was seen at [facility] 48 hours prior in the emergency room at that time was being evaluated for mid epigastric discomfort. Patient stated they did an ultrasound of her gallbladder to her knowledge there were no acute findings patient was discharged from the emergency room to home patient stated that she returned because she developed right lower quadrant pain. CAT scan of the abdomen pelvis obtained in the emergency room was consistent with acute appendicitis. White count on admission was 12.9. Patient was started on IV Levaquin. Patient underwent laparoscopic appendectomy for acute appendicitis on August 12 On admission the urinalysis was felt likely to be a contamination the following morning on August 13 patient reportedly was experiencing burning with urination repeat urine suggestive of a UTI in which the patient has been started on Levaquin. White count on admission was 12.9. On August 13 was down to 6.3. Hemoglobin 10.8. Did have a temp at midnight of 100.6 repeat temp was 99.5. Patient was tolerating a diet no nausea no vomiting up ambulatory on the unit surgical incision sites dressings were dry. Abdomen soft nondistended. Patient was felt to be appropriate to be discharged home Discharge diagnosis impression Present on admission right upper quadrant abdominal pain suspect due to acute appendicitis Mild intermittent asthma: No evidence of exacerbation. Generalized anxiety disorder and depression Symptomatic UTI burning with urination repeat urine likely UTI Present on admission nausea vomiting with right upper quadrant abdominal pain suspect due to acute appendicitis Present on admission leukocytosis low-grade temp suspect due to acute appendicitis Computed tomography scan abdomen pelvis report indicate acute appendicitis The above impression and plan of care have been discussed and directed by signing physician. Karley Owens nurse practitioner acting as scribe for signing physician. Plan - Discharge Summary New Discharge Prescriptions: New Levofloxacin [Levaquin] 750 mg PO HS #7 tab HYDROcodone/APAP 5-325MG [[place] 5-325] 1 tab PO Q6HR PRN 3 Days #18 tab PRN Reason: Mild Breakthrough Pain Continue Albuterol Inhaler [Ventolin Hfa Inhaler] 1 - 2 puff INHALATION RT-QID PRN PRN Reason: Shortness Of Breath Sertraline [Zoloft] 50 mg PO DAILY Multivit with Calcium,Iron,Min [Women's Multivitamin] 1 tab PO DAILY Discharge Medication List Albuterol Inhaler [Ventolin Hfa Inhaler] 1 - 2 puff INHALATION RT-QID PRN [History] Multivit with Calcium,Iron,Min [Women's Multivitamin] 1 tab PO DAILY 08/11/18 [ History] Sertraline [Zoloft] 50 mg PO DAILY 08/11/18 [History] HYDROcodone/APAP 5-325MG [[place] 5-325] 1 tab PO Q6HR PRN 3 Days #18 tab [Rx] Levofloxacin [Levaquin] 750 mg PO HS #7 tab 08/13/18 [Rx] Follow up Appointment(s)/Referral(s): Twila Chun DO [Primary Care Provider] - 1-2 days Tenzin Clark MD [STAFF PHYSICIAN] - 1 Week Activity/Diet/Wound Care/Special Instructions: No tub bath for six weeks. Shower daily. No lifting over 10 pounds for the next 4 weeks. May return to work in 2 weeks May use ice packs to surgical site. No driving while taking narcotic for pain. May use [id number] stool softeners for constipation if needed Discharge Disposition: HOME SELF-CARE
--- NOTE | 2018-08-13 12:20 | P.PN ---
Subjective Progress Note Date: 08/13/18 status post laparoscopic appendectomy with Dr. Clark. Patient tolerating diet. No further nausea or vomiting. She is passing gas. No bowel movement. She did have nausea earlier this morning. But was able to tolerate diet. Patient did have some burning with urination and a low-grade temp of 100.6. Repeat urinalysis showing possible evidence of UTI. She'll continue Levaquin for 7 more days. Serum WBC has normalized. Surgery has cleared for discharge. Objective - Vital Signs Vital signs: Vital Signs Temp 99.5 F 08/13/18 07:50 Pulse 92 08/13/18 07:50 Resp 16 08/13/18 07:50 BP 121/77 08/13/18 07:50 Pulse Ox 93 L 08/13/18 07:50 Intake & Output 08/12/18 08/13/18 08/13/18 18:59 06:59 18:59 Intake Total 2100 Output Total 5 1900 Balance 2094 -1900 Intake: IV 800 Intake, IV Titration 1300 Amount Sodium Chloride 0.9% 1, 1300 000 ml @ 100 mls/hr IV . Q10H [facility] Rx#:[id number] Output: Urine 1900 Estimated Blood Loss 5 Other: Voiding Method Toilet # Voids 1 2 - Exam Head normocephalic Neck supple Lungs clear to auscultation bilaterally no wheezing or crackles Heart regular rate and rhythm S1-S2, no rub or gallop Abdomen is soft nontender nondistended positive bowel sounds no hepatosplenomegaly Extremities no edema. Incision sites showing a minimal blood dried Neuro alert and orientated to 3 - Labs CBC & Chem 7: 08/13/18 06:45 08/13/18 06:45 Labs: Abnormal Lab Results - Last 24 Hours (Table) 08/12/18 08/13/18 08/13/18 Range/Units 19:35 06:45 06:45 Hgb 10.8 L (11.4-16.0) gm/dL Hct 33.2 L (34.0-46.0) % BUN 6 L (7-17) mg/dL Calcium 8.2 L (8.4-10.2) mg/dL AST 11 L (14-36) U/L Total Protein 5.6 L (6.3-8.2) g/dL Albumin 3.0 L (3.5-5.0) g/dL Urine Appearance Turbid H (Clear) Urine Protein Trace H (Negative) Urine Ketones Trace H (Negative) Urine Blood Trace H (Negative) Ur Leukocyte Esterase Large H (Negative) Urine WBC 91 H (0-5) /hpf Ur Squamous Epith Cells 42 H (0-4) /hpf Urine Bacteria Many H (None) /hpf Urine Mucus Many H (None) /hpf Urine Yeast (Budding) Occasional H (None) /hpf Microbiology - Last 24 Hours (Table) 08/12/18 19:35 Urine Culture - Preliminary Urine,Voided Assessment and Plan Assessment: 1. Acute appendicitis status post laparoscopic appendectomy. 2. Mild intermittent asthma: No evidence of exacerbation. Continue with albuterol inhaler as needed 3. Generalized anxiety disorder and depression. Zoloft 4. UTI: Urine culture pending. Recommend continuing Levaquin for 7 more days DVT prophylaxis subcu heparin and GI prophylaxis Pepcid Patient is medically stable for discharge. follow-up with her PCP in 1 week I performed an examination of the patient and discussed their management with the physician Auto Air Conditioning Installer. I have reviewed the Physician Auto Air Conditioning Installer's notes and agree with the documented findings and plan of care
[2018-08-13 12:43] VITALS: RESP 14
[2018-08-13 14:27] VITALS: BP 134/77; PULSE 84; TEMP 100.6
[2018-08-13] MEDS ORDERED: LEVOFLOXACIN 750 MG TAB PO SCH (21:00)
== END 2018-08-13 18:39 | disposition home or self-care (01) ==
LOC: EC 15:57 → 6PED 19:35
PROVIDERS: ADMIT Surgery; ATTEND Surgery
DX: K35.3 Acute appendicitis with localized peritonitis (principal); J45.20 Mild intermittent asthma, uncomplicated; N39.0 Urinary tract infection, site not specified; D62 Acute posthemorrhagic anemia; R01.1 Cardiac murmur, unspecified; F41.1 Generalized anxiety disorder; F32.9 Major depressive disorder, single episode, unspecified; E28.2 Polycystic ovarian syndrome; Z88.0 Allergy status to penicillin; Z88.2 Allergy status to sulfonamides; Z79.899 Other long term (current) drug therapy; Z82.49 Family history of ischemic heart disease and other diseases of the circulatory system; Z82.5 Family history of asthma and other chronic lower respiratory diseases; Z82.61 Family history of arthritis
CPT/HCPCS: 44970; 99285 ×2; 96365 ×2; 96375 ×4; 96361 ×5; 96376 ×3; 36415; 81025 ×2; 88304; 80053 ×2; 82150; 83690; 85025 ×2; 81001 ×2; 87086; 74177; G0378 ×3; J2250; J1644 ×2; J2710; J2765 ×2; J2405 ×3; J2001; J3010; J1885; J1170 ×3; J1956 ×2; J2704; Q9967

== ENCOUNTER → 2018-11-29 | Outpatient (CLI) | payer OTHER | LOC: LABWHC1 16:43 | PROVIDERS: ATTEND Obstetrics & Gynecology Reproductive Endocrinology | DX: E28.9 Ovarian dysfunction, unspecified (principal) | CPT/HCPCS: 36415; 84144 ==

== ENCOUNTER 2019-07-28 08:50 | Emergency (ER) | payer OTHER ==
[2019-07-28 08:56] VITALS: BP 110/46; PULSE 68; RESP 18; TEMP 98.5
--- NOTE | 2019-07-28 09:07 | ED ---
Skin/Abscess/FB HPI - General Chief complaint: Skin/Abscess/Foreign Body Stated complaint: Rash/Abscess on leg Time Seen by Provider: 07/28/19 08:57 Source: patient, RN notes reviewed Mode of arrival: ambulatory Limitations: no limitations - History of Present Illness Initial comments: 34-year-old female presents emergency Department with chief complaint of rash to her left leg. Patient states that he felt itchy and was read earlier states that she noticed that the redness increased. She's not exactly sure what happened. She states she feels achy and just did not feel well. Patient states that she has scratchy throat that has resolved. Denies any difficulty breathing difficulty swallowing. to take Benadryl yesterday and states that it helped her sleep but denies improved the redness. Patient denies any other complaints at this time. - Related Data Home Medications Medication Instructions Recorded Confirmed Sertraline [Zoloft] 50 mg PO DAILY 08/11/18 02/15/19 Previous Rx's Medication Instructions Recorded Ibuprofen [Motrin] 600 mg PO Q8HR PRN #30 tab 02/15/19 Cephalexin [Keflex] 500 mg PO Q6HR #40 cap 07/28/19 Allergies Allergy/AdvReac Type Severity Reaction Status Date / Time Penicillins Allergy Rash/Hives Verified 07/28/19 08:52 Sulfa (Sulfonamide Allergy Rash/Hives Verified 07/28/19 08:52 Antibiotics) Review of Systems ROS Statement: Those systems with pertinent positive or pertinent negative responses have been documented in the HPI. ROS Other: All systems not noted in ROS Statement are negative. 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, polycystic ovarian syndrome, heart murmur History of Any Multi-Drug Resistant Organisms: None Reported Past Surgical History: Appendectomy Past Anesthesia/Blood Transfusion Reactions: No Reported Reaction Past Psychological History: Anxiety, Depression Smoking Status: Never smoker Past Alcohol Use History: Occasional Past Drug Use History: None Reported - Past Family History Mother Family Medical History: Myocardial Infarction ([place]), Osteoarthritis ([place]) Father Family Medical History: COPD, Myocardial Infarction ([place]) General Exam Limitations: no limitations General appearance: alert, in no apparent distress Head exam: Present: atraumatic, normocephalic, normal inspection Respiratory exam: Present: normal lung sounds bilaterally. Absent: respiratory distress, wheezes, rales, rhonchi, stridor Cardiovascular Exam: Present: regular rate, normal rhythm, normal heart sounds. Absent: systolic murmur, diastolic murmur, rubs, gallop, clicks Skin exam: Present: warm, dry, intact, other (Left lower leg posterior aspect there is erythema that is warm to the touch, minimally tender there is no fluctuant area no lesions or sores. There is no palpable lymph nodes in the popliteal or femoral region) Course Vital Signs 07/28/19 07/28/19 08:53 09:24 Temperature 98.5 F 98.5 F Pulse Rate 68 68 Respiratory 18 18 Rate Blood Pressure 110/46 110/46 O2 Sat by Pulse 100 100 Oximetry Medical Decision Making - Medical Decision Making 34-year-old female presented for left leg redness. This appears to be cellulitis. We discussed that this may have started as possible insect bite or ALLERGIC though she had no response with antihistamines patient will continue antihistamines and will be discharged she has no respiratory issues. vitals Are stable. Disposition Clinical Impression: Cellulitis Disposition: HOME SELF-CARE Condition: Stable Instructions (If sedation given, give patient instructions): Cellulitis (ED) Additional Instructions: Please return to the Emergency Department if symptoms worsen or any other concerns. Prescriptions: Cephalexin [Keflex] 500 mg PO Q6HR #40 cap Is patient prescribed a controlled substance at d/c from ED?: No Referrals: Twila Chun DO [Primary Care Provider] - 1-2 days Time of Disposition: 09:07
== END 2019-07-28 09:30 | disposition home or self-care (01) ==
LOC: EC 08:50
DX: L03.116 Cellulitis of left lower limb (principal); F32.9 Major depressive disorder, single episode, unspecified; F41.9 Anxiety disorder, unspecified; Z88.0 Allergy status to penicillin; Z88.2 Allergy status to sulfonamides; Z79.899 Other long term (current) drug therapy
CPT/HCPCS: 99282

== ENCOUNTER 2019-11-16 18:36 | Emergency (ER) | payer OTHER ==
[2019-11-16 19:10] VITALS: RESP 18
--- NOTE | 2019-11-16 19:27 | ED ---
General Adult HPI - General Chief complaint: Nausea/Vomiting/Diarrhea Stated complaint: Vomiting Time Seen by Provider: 11/16/19 19:10 Source: patient Mode of arrival: ambulatory Limitations: no limitations - History of Present Illness Initial comments: Patient presents to the ED with her mother for evaluation. Patient states that she has had nausea and vomiting for the past 14 hours or so. Patient also states that she has had a small amount of diarrhea today. Patient is also complaining of having generalized abdominal pain and diffuse myalgias. Patient states that 2 of her children have had similar GI symptoms recently as well. Patient denies recent travel abroad. Patient denies trauma or injury, fever, headache, chest pain, dyspnea, cough or cold symptoms, dizziness, bloody or melanotic stool, hematemesis, dysuria or urinary symptoms, vaginal bleeding, or any other symptoms or complaints. - Related Data Home Medications Medication Instructions Recorded Confirmed Sertraline [Zoloft] 50 mg PO DAILY 08/11/18 02/15/19 Previous Rx's Medication Instructions Recorded Ibuprofen [Motrin] 600 mg PO Q8HR PRN #30 tab 02/15/19 Cephalexin [Keflex] 500 mg PO Q6HR #40 cap 07/28/19 Ondansetron Odt [Zofran Odt] 4 mg PO Q8HR PRN #10 tab 11/16/19 Allergies Allergy/AdvReac Type Severity Reaction Status Date / Time Penicillins Allergy Rash/Hives Verified 11/16/19 19:07 Sulfa (Sulfonamide Allergy Rash/Hives Verified 11/16/19 19:07 Antibiotics) Review of Systems ROS Statement: Those systems with pertinent positive or pertinent negative responses have been documented in the HPI. ROS Other: All systems not noted in ROS Statement are negative. 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, polycystic ovarian syndrome, heart murmur History of Any Multi-Drug Resistant Organisms: None Reported Past Surgical History: Appendectomy Past Anesthesia/Blood Transfusion Reactions: No Reported Reaction Past Psychological History: Anxiety, Depression Smoking Status: Never smoker Past Alcohol Use History: Occasional Past Drug Use History: None Reported - Past Family History Mother Family Medical History: Myocardial Infarction ([place]), Osteoarthritis ([place]) Father Family Medical History: COPD, Myocardial Infarction ([place]) General Exam Limitations: no limitations General appearance: alert, in no apparent distress Head exam: Present: atraumatic, normocephalic Eye exam: Present: normal appearance, EOMI ENT exam: Present: mucous membranes moist Neck exam: Present: other (Trachea is in midline). Absent: tenderness, meningismus Respiratory exam: Present: normal lung sounds bilaterally. Absent: respiratory distress, wheezes, rales, rhonchi Cardiovascular Exam: Present: regular rate, normal rhythm, normal heart sounds, other (Normal radial pulses bilaterally) GI/Abdominal exam: Present: soft. Absent: distended, tenderness, guarding Extremities exam: Absent: pedal edema Back exam: Absent: CVA tenderness (R), CVA tenderness (L) Neurological exam: Present: alert, oriented X3. Absent: motor sensory deficit Psychiatric exam: Present: normal affect, normal mood Skin exam: Present: warm, dry, intact, normal color Course Vital Signs 11/16/19 19:07 Temperature 99.7 F H Pulse Rate 91 Respiratory 18 Rate Blood Pressure 117/63 O2 Sat by Pulse 95 Oximetry - Reevaluation(s) Reevaluation #1: 11/16/19 21:23 Patient states that her nausea and symptoms have improved with ED treatment, and she states that she is now feeling much better. Patient has not any vomiting while in the ED. Patient's abdomen remains soft and nontender on exam. Patient is afebrile and without leukocytosis, and her labs are fairly unremarkable. Patient is aware of her test results she feels comfortable going home with her mother at this time. I suspect that the patient's symptoms are likely secondary to viral gastroenteritis. Patient was counseled about good oral hydration and nausea/vomiting/diarrhea. Patient was clearly explained return and follow-up instructions, and she was instructed to follow up closely with her primary care provider. Patient feels comfortable with this plan. Medical Decision Making - Lab Data Result diagrams: 11/16/19 20:21 11/16/19 20:21 Lab Results 11/16/19 11/16/19 Range/Units 20:21 20:21 WBC 9.6 (3.8-10.6) k/uL RBC 4.72 (3.80-5.40) m/uL Hgb 13.5 (11.4-16.0) gm/dL Hct 39.3 (34.0-46.0) % MCV 83.2 (80.0-100.0) fL MCH 28.6 (25.0-35.0) pg MCHC 34.4 (31.0-37.0) g/dL RDW 13.2 (11.5-15.5) % Plt Count 211 (150-450) k/uL Neutrophils % 93 % Lymphocytes % 3 % Monocytes % 2 % Eosinophils % 1 % Basophils % 0 % Neutrophils # 9.0 H (1.3-7.7) k/uL Lymphocytes # 0.3 L (1.0-4.8) k/uL Monocytes # 0.2 (0-1.0) k/uL Eosinophils # 0.1 (0-0.7) k/uL Basophils # 0.0 (0-0.2) k/uL Sodium 138 (137-145) mmol/L Potassium 4.1 (3.5-5.1) mmol/L Chloride 102 (98-107) mmol/L Carbon Dioxide 25 (22-30) mmol/L Anion Gap 11 mmol/L BUN 16 (7-17) mg/dL Creatinine 0.65 (0.52-1.04) mg/dL Est GFR (CKD-EPI)AfAm >90 (>60 ml/min/1.73 sqM) Est GFR (CKD-EPI)NonAf >90 (>60 ml/min/1.73 sqM) Glucose 100 H (74-99) mg/dL Calcium 8.8 (8.4-10.2) mg/dL Total Bilirubin 0.9 (0.2-1.3) mg/dL AST 28 (14-36) U/L ALT 14 (4-34) U/L Alkaline Phosphatase 46 (38-126) U/L Total Protein 7.5 (6.3-8.2) g/dL Albumin 4.4 (3.5-5.0) g/dL Lipase 65 (23-300) U/L HCG, Qual Not Detected Disposition Clinical Impression: Gastroenteritis Disposition: HOME SELF-CARE Condition: Stable Instructions (If sedation given, give patient instructions): Acute Nausea and Vomiting (ED), Acute Diarrhea (ED) Additional Instructions: Return to the ER immediately should you develop new or worsening pain, persistent or bloody vomiting/diarrhea, shortness of breath, a fever, feeling dizzy or faint, or new or worsening symptoms. Follow up closely with your primary care provider. Prescriptions: Ondansetron Odt [Zofran Odt] 4 mg PO Q8HR PRN #10 tab PRN Reason: Nausea Is patient prescribed a controlled substance at d/c from ED?: No Referrals: Twila Chun DO [Primary Care Provider] - 1-2 days Time of Disposition: 21:25
[2019-11-16] MEDS ORDERED: ONDANSETRON 4 MG/2 ML VIAL IVP STA (19:44)
[2019-11-16] MEDS ORDERED: SODIUM CHLORIDE 0.9% 1,000 ML IV STA (19:44)
[2019-11-16 20:45] LABS: Basophils % (A) 0 %; Eosinophils # (A) 0.1 k/uL (0-0.7); Eosinophils % (A) 1 %; HCT 39.3 % (34.0-46.0); HGB 13.5 gm/dL (11.4-16.0); Lymphocytes # (A) 0.3 k/uL (1.0-4.8); Lymphocytes % (A) 3 %; MCH 28.6 pg (25.0-35.0); MCHC 34.4 g/dL (31.0-37.0); MCV 83.2 fL (80.0-100.0); Mean Platelet Volume 8.3; Monocytes # (A) 0.2 k/uL (0-1.0); Monocytes % (A) 2 %; Neutrophils % (A) 93 %; Platelet Count 211 k/uL (150-450); RBC 4.72 m/uL (3.80-5.40); RDW 13.2 % (11.5-15.5); WBC 9.6 k/uL (3.8-10.6)
[2019-11-16 20:52] LABS: HCG,Qualitative Serum Not Detected
[2019-11-16 20:54] LABS: ALT 14 U/L (4-34); AST 28 U/L (14-36); African American GFR (CKD) >90 (>60 ml/min/1.73 sqM); Albumin 4.4 g/dL (3.5-5.0); Alkaline Phosphatase 46 U/L (38-126); Anion Gap 11 mmol/L; Blood Urea Nitrogen 16 mg/dL (7-17); Calcium 8.8 mg/dL (8.4-10.2); Carbon Dioxide 25 mmol/L (22-30); Chloride 102 mmol/L (98-107); Glucose 100 mg/dL (74-99); Non-African American GFR(CKD) >90 (>60 ml/min/1.73 sqM); Potassium 4.1 mmol/L (3.5-5.1); Sodium 138 mmol/L (137-145); Total Bilirubin 0.9 mg/dL (0.2-1.3); Total Protein 7.5 g/dL (6.3-8.2)
[2019-11-16 21:40] VITALS: BP 104/59; PULSE 86; TEMP 97.8
== END 2019-11-16 21:40 | disposition home or self-care (01) ==
LOC: EC 18:36
DX: K52.9 Noninfective gastroenteritis and colitis, unspecified (principal); F41.9 Anxiety disorder, unspecified; F32.9 Major depressive disorder, single episode, unspecified; Z79.899 Other long term (current) drug therapy; Z88.0 Allergy status to penicillin; Z88.2 Allergy status to sulfonamides
CPT/HCPCS: 36415; 80053; 83690; 85025; 84703; 99284; 96374; 96361; J2405

== ENCOUNTER 2019-12-27 06:23 | Day surgery (SDC) | payer OTHER ==
[2019-12-23 11:57] VITALS: BMI 28.3
[~2019-12-27 06:23] MED LIST: DEXAMETHASONE SOD PHOSPHATE 10 MG/ML 1 ML VIAL IV ONE; HEPARIN SODIUM,PORCINE 5,000 UNIT/ML 1 ML VIAL SQ ONE; HYDROmorphone 0.5 MG/0.5 ML SYRINGE IVP PRN; LACTATED RINGERS 1,000 ML IV SCH; MIDAZOLAM 2 MG/2 ML VIAL IV PRN; ONDANSETRON 4 MG/2 ML VIAL IVP ONE; SCOPOLAMINE 1.5MG/72HR PATCH TRANSDERM ONE
[2019-12-27] MEDS ORDERED: LIDOCAINE 1% 20 ML VIAL (10MG/ML) FOR IV START INTRADERMA ONE (07:05)
[2019-12-27] MEDS ORDERED: MIDAZOLAM 2 MG/2 ML VIAL ONE (07:53)
[2019-12-27] MEDS ORDERED: GLYCOPYRROLATE 0.2 MG/ML 2 ML VIAL ONE (07:53)
[2019-12-27] MEDS ORDERED: fentaNYL (PF) 50 MCG/ML 2 ML AMP ONE (07:53)
[2019-12-27] MEDS ORDERED: NEOSTIGMINE 1 MG/ML 10 ML VIAL ONE (07:53)
[2019-12-27] MEDS ORDERED: SUCCINYLCHOLINE CHLORIDE 100 MG/5 ML SYR IV ONE (07:53)
[2019-12-27] MEDS ORDERED: KETOROLAC 30 MG/ML 1 ML VIAL ONE (07:53)
[2019-12-27] MEDS ORDERED: HYDROmorphone (PF) 1 MG/ML ONE (07:53)
[2019-12-27] MEDS ORDERED: PROPOFOL 10 MG/ML 20 ML VIAL IV ONE (07:53)
[2019-12-27] MEDS ORDERED: ROCURONIUM BROMIDE 10 MG/ML 10 ML VIAL IV ONE (07:53)
[2019-12-27] MEDS ORDERED: LIDOCAINE 1% INJ 10MG/ML (20 ML MDV) ONE (07:53)
--- NOTE | 2019-12-27 07:59 | P.GSHP ---
History of Present Illness H&P Date: 12/27/19 Chief Complaint: Right upper quadrant pain This a 34-year-old female presents today for laparoscopic cholecystectomy. Patient's had complaints of right upper quadrant pain. 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, polycystic ovarian syndrome, heart murmur, GALLBLADDER DYSFUNCTION History of Any Multi-Drug Resistant Organisms: None Reported Past Surgical History: Appendectomy Past Anesthesia/Blood Transfusion Reactions: No Reported Reaction Smoking Status: Never smoker - Past Family History Mother Family Medical History: Myocardial Infarction ([place]), Osteoarthritis ([place]) Father Family Medical History: COPD, Myocardial Infarction ([place]) Medications and Allergies Home Medications Medication Instructions Recorded Confirmed Type Sertraline [Zoloft] 50 mg PO DAILY 08/11/18 12/27/19 History Allergies Allergy/AdvReac Type Severity Reaction Status Date / Time Penicillins Allergy Rash/Hives Verified 12/27/19 06:52 Sulfa (Sulfonamide Allergy Rash/Hives Verified 12/27/19 06:52 Antibiotics) Surgical - Exam Vital Signs Temp Pulse Resp BP 97.7 F 65 16 117/62 12/27/19 06:50 12/27/19 06:50 12/27/19 06:50 12/27/19 06:50 - General well developed, well nourished, no distress - Eyes PERRL - ENT normal pinna - Neck no masses - Respiratory normal expansion - Cardiovascular Rhythm: regular - Abdomen Abdomen: soft, non tender Assessment and Plan Assessment: Right upper quadrant pain Cholelithiasis We'll perform laparoscopic cholecystectomy
[2019-12-27] MEDS ORDERED: BUPIVACAINE (PF) 0.25% 30 ML VIAL SQ ONE (08:24)
[2019-12-27] MEDS ORDERED: LACTATED RINGERS 1,000 ML IV ONE (08:37)
--- NOTE | 2019-12-27 08:59 | P.OP ---
Date of Procedure: 12/27/19 Preoperative Diagnosis: Cholelithiasis Postoperative Diagnosis: Cholecystitis Cholelithiasis Procedure(s) Performed: Laparoscopic cholecystectomy Anesthesia: MARY Surgeon: Tenzin Clark Estimated Blood Loss (ml): 5 Pathology: other (Gallbladder) Condition: stable Disposition: PACU Description of Procedure: The patient was placed on the operating table. The patient received a general endotracheal tube anesthesia. The patients abdomen was prepped and draped in the usual sterile fashion. Through an infraumbilical stab incision, the fascia of the anterior abdominal wall was grasped with a pair of Kochers and then the Veress needle was placed in the peritoneal cavity. Position of the Veress needle was confirmed with positive drop test. The abdomen was then insufflated. After adequate insufflation, the 10 mm trocar was placed in the peritoneal cavity. Following this the laparoscope was placed in the peritoneal cavity. The patient was placed in the head-up, right side up position and then a 5 mm trocar was placed in the right lateral and right subcostal position under direct visualization. A 8 mm trocar was placed in the epigastric position. The gallbladder was grasped in the fundus and infundibulum. Traction on the gallbladder was placed in the lateral and the cephalad positions. The triangle of Calot was visualized.. The cystic duct was bluntly dissected until the union of the cystic duct and common bile duct was seen. A critical view of safety was achieved. The cystic duct was then divided and sealed with the Harmonic scissors. A PDS Endoloop was then placed throughout the cystic duct stump. The cystic artery divided and sealed with the Harmonic scissors. The gallbladder was then removed from the liver bed using Harmonic scissors. The gallbladder was then extracted through the epigastric port site. Operative field was checked for any bleeding spots and Harmonic scissors was used to coagulate the liver bed. The abdomen was irrigated. The trocars were removed. The skin was closed using interrupted 3-0 Vicryl suture. Dermabond dressing were applied. The patient tolerated the procedure well.
[2019-12-27 09:09] VITALS: TEMP 97.1
[2019-12-27 09:19] VITALS: RESP 16
[2019-12-27] MEDS ORDERED: HYDROcodone/APAP 5-325MG 1 EACH TAB PO ONE (10:07)
[2019-12-27] MEDS ORDERED: ONDANSETRON 4 MG/2 ML VIAL IVP ONE (10:13)
[2019-12-27 10:30] VITALS: BP 119/74; PULSE 83
== END 2019-12-27 11:01 | disposition home or self-care (01) ==
LOC: OR 06:23
PROVIDERS: ATTEND Surgery
DX: K80.10 Calculus of gallbladder with chronic cholecystitis without obstruction (principal); J45.909 Unspecified asthma, uncomplicated; E28.2 Polycystic ovarian syndrome; F41.9 Anxiety disorder, unspecified; F32.9 Major depressive disorder, single episode, unspecified; Z90.49 Acquired absence of other specified parts of digestive tract; Z82.49 Family history of ischemic heart disease and other diseases of the circulatory system; Z79.899 Other long term (current) drug therapy; Z88.0 Allergy status to penicillin; Z88.2 Allergy status to sulfonamides
CPT/HCPCS: 81025; 88304; 47562; J2250; J1644; J1100; J2710; J0690; J2405; J2001; J3010; J1885; J1170; J0330; J2704

== ENCOUNTER 2020-01-04 08:49 | Emergency (ER) | payer OTHER ==
[2020-01-04] MEDS ORDERED: ACETAMINOPHEN TAB 500 MG TAB PO STA (09:03)
[2020-01-04] MEDS ORDERED: IBUPROFEN 600 MG TAB PO STA (09:03)
--- NOTE | 2020-01-04 09:06 | ED ---
General Adult HPI - General Chief complaint: Upper Respiratory Infection Stated complaint: body aches/sore throat Time Seen by Provider: 01/04/20 08:55 Source: patient, RN notes reviewed Mode of arrival: ambulatory Limitations: no limitations - History of Present Illness Initial comments: Patient is a pleasant 34-year-old female presenting to the emergency Department with complaints of sore throat and fever. Onset of symptoms was yesterday. Patient has fever and diffuse myalgias. Patient does have some rhinorrhea. Patient does have occasional cough with sputum however has not checked on color of sputum. - Related Data Home Medications Medication Instructions Recorded Confirmed Sertraline [Zoloft] 50 mg PO DAILY 08/11/18 01/04/20 Previous Rx's Medication Instructions Recorded Oseltamivir [Tamiflu] 75 mg PO Q12HR #10 cap 01/04/20 Allergies Allergy/AdvReac Type Severity Reaction Status Date / Time Penicillins Allergy Rash/Hives Verified 01/04/20 09:53 Sulfa (Sulfonamide Allergy Rash/Hives Verified 01/04/20 09:53 Antibiotics) Review of Systems ROS Statement: Those systems with pertinent positive or pertinent negative responses have been documented in the HPI. ROS Other: All systems not noted in ROS Statement are negative. Constitutional: Reports: fever, chills Eyes: Denies: eye pain ENT: Reports: throat pain. 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, polycystic ovarian syndrome, heart murmur, GALLBLADDER DYSFUNCTION History of Any Multi-Drug Resistant Organisms: None Reported Past Surgical History: Appendectomy, Cholecystectomy Past Anesthesia/Blood Transfusion Reactions: No Reported Reaction Past Psychological History: Anxiety, Depression Smoking Status: Never smoker - Past Family History Mother Family Medical History: Myocardial Infarction ([place]), Osteoarthritis ([place]) Father Family Medical History: COPD, Myocardial Infarction ([place]) General Exam Limitations: no limitations General appearance: alert, in no apparent distress Head exam: Present: normocephalic Eye exam: Present: normal appearance, PERRL ENT exam: Present: other (Mild pharyngeal erythema) Neck exam: Present: normal inspection. Absent: meningismus, lymphadenopathy Respiratory exam: Present: normal lung sounds bilaterally Cardiovascular Exam: Present: tachycardia GI/Abdominal exam: Present: soft. Absent: tenderness Extremities exam: Present: normal inspection Neurological exam: Present: alert Psychiatric exam: Present: normal affect, normal mood Skin exam: Present: normal color Course Vital Signs 01/04/20 01/04/20 08:50 10:00 Temperature 101.1 F H 99.9 F H Pulse Rate 106 H 88 Respiratory 18 16 Rate Blood Pressure 131/75 110/64 O2 Sat by Pulse 98 97 Oximetry Medical Decision Making - Medical Decision Making Patient reevaluated. Patient and family updated. - Lab Data Lab Results 01/04/20 01/04/20 Range/Units 09:07 09:07 Influenza Type A RNA Detected H (Not Detectd) Influenza Type B (PCR) Not Detected (Not Detectd) Group A Strep Rapid Negative (Negative) - Radiology Data Radiology results: image reviewed (Chest x-ray shows no acute process.) Disposition Clinical Impression: Influenza Disposition: HOME SELF-CARE Condition: Stable Instructions (If sedation given, give patient instructions): Influenza (ED) Additional Instructions: Continue [id number] Tylenol and Motrin as needed. Prescription for Tamiflu. Return for difficulty breathing, worsening symptoms, or other concerns. Prescription sent to pharmacy Prescriptions: Oseltamivir [Tamiflu] 75 mg PO Q12HR #10 cap Is patient prescribed a controlled substance at d/c from ED?: No Referrals: Erik Pepper MD [STAFF PHYSICIAN] - 1-2 days Time of Disposition: 10:33
--- NOTE | 2020-01-04 09:33 | XR ---
EXAMINATION TYPE: XR chest 2V DATE OF EXAM: 01/04/2020 COMPARISON: 11/27/2010 HISTORY: Fever and cough TECHNIQUE: Frontal and lateral views of the chest are obtained. FINDINGS: There is no focal air space opacity, pleural effusion, or pneumothorax seen. The cardiac silhouette size is within normal limits. The osseous structures are intact. IMPRESSION: No acute cardiopulmonary process.
[2020-01-04 10:01] VITALS: BP 110/64; PULSE 88; RESP 16; TEMP 99.9
== END 2020-01-04 10:44 | disposition home or self-care (01) ==
LOC: EC 08:49
DX: J11.1 Influenza due to unidentified influenza virus with other respiratory manifestations (principal); R00.0 Tachycardia, unspecified; F32.9 Major depressive disorder, single episode, unspecified; F41.9 Anxiety disorder, unspecified; Z88.0 Allergy status to penicillin; Z88.2 Allergy status to sulfonamides; Z79.899 Other long term (current) drug therapy; Z87.09 Personal history of other diseases of the respiratory system; Z82.5 Family history of asthma and other chronic lower respiratory diseases
CPT/HCPCS: 71046; 87081; 87430; 87502; 99283

== ENCOUNTER 2020-07-11 17:38 | Emergency (ER) | payer OTHER ==
[2020-07-11] MEDS ORDERED: ONDANSETRON 4 MG/2 ML VIAL IVP STA (18:21)
[2020-07-11] MEDS ORDERED: FAMOTIDINE 20 MG/2 ML VIAL IV STA (18:21)
[2020-07-11] MEDS ORDERED: SODIUM CHLORIDE 0.9% 1,000 ML IV STA (18:21)
[2020-07-11] MEDS ORDERED: MORPHINE SULFATE 2 MG/ML SYRINGE IVP STA (18:31)
[2020-07-11 18:45] LABS: Basophils % (A) 1 %; Eosinophils # (A) 0.1 k/uL (0-0.7); Eosinophils % (A) 3 %; HCT 37.7 % (34.0-46.0); HGB 12.7 gm/dL (11.4-16.0); Lymphocytes # (A) 1.5 k/uL (1.0-4.8); Lymphocytes % (A) 30 %; MCH 28.4 pg (25.0-35.0); MCHC 33.8 g/dL (31.0-37.0); MCV 83.8 fL (80.0-100.0); Mean Platelet Volume 7.7; Monocytes # (A) 0.3 k/uL (0-1.0); Monocytes % (A) 6 %; Neutrophils % (A) 60 %; Platelet Count 216 k/uL (150-450); RBC 4.49 m/uL (3.80-5.40); RDW 13.1 % (11.5-15.5)
[2020-07-11 18:58] LABS: Appearance,Urine Cloudy (Clear); Bacteria,Urine Rare /hpf; Bilirubin,Urine Negative (Negative); Blood,Urine Negative (Negative); Color,Urine Light Yellow; Glucose,Urine (UA) Negative (Negative); Ketones,Urine Negative (Negative); Leukocyte Esterase,Urine Small (Negative); Nitrite,Urine Negative (Negative); Protein,Urine Negative (Negative); RBC,Urine <1 /hpf (0-5); Specific Gravity,Urine 1.013 (1.001-1.035); Squamous Epithelial Cell,Urine 15 /hpf (0-4); Urobilinogen,Urine <2.0 mg/dL (<2.0); WBC,Urine 1 /hpf (0-5)
[2020-07-11 19:11] LABS: ALT 14 U/L (4-34); AST 20 U/L (14-36); African American GFR (CKD) >90 (>60 ml/min/1.73 sqM); Albumin 4.3 g/dL (3.5-5.0); Alkaline Phosphatase 52 U/L (38-126); Amylase 68 U/L (30-110); Anion Gap 8 mmol/L; Blood Urea Nitrogen 14 mg/dL (7-17); Calcium 8.9 mg/dL (8.4-10.2); Carbon Dioxide 25 mmol/L (22-30); Chloride 105 mmol/L (98-107); Glucose 86 mg/dL (74-99); Non-African American GFR(CKD) >90 (>60 ml/min/1.73 sqM); Sodium 138 mmol/L (137-145); Total Bilirubin 0.4 mg/dL (0.2-1.3); Total Protein 7.1 g/dL (6.3-8.2)
--- NOTE | 2020-07-11 19:40 | ED ---
Abdominal Pain HPI - General Chief Complaint: Abdominal Pain Stated Complaint: INQUICKER Abd pain Nausea Dizzy Time Seen by Provider: 07/11/20 17:58 Source: patient Mode of arrival: ambulatory Limitations: no limitations - History of Present Illness Initial Comments: This is a 34-year-old female patient who presents to the emergency department today for evaluation of left upper quadrant abdominal pain. Patient states that she has been experiencing discomfort to the area for the last 4 days. States that she is also experiencing early satiety and is unable to eat. She states she has felt nauseated but denies any vomiting. Denies any constipation. States that she has had diarrhea since having her gallbladder removed. She denies fever or chills. Denies any hematuria, dysuria, urinary frequency, urinary urgency. Denies hematochezia, melena, hematemesis. She has also had appendectomy in the past no other abdominal surgeries. She is currently going through treatments for fertility. Patient denies any recent rash, fever, chills, cough, shortness of breath, chest pain, numbness, tingling, dizziness, weakness, hematuria, dysuria, urinary urgency, urinary frequency, headache, visual changes, or any other complaints. - Related Data Home Medications Medication Instructions Recorded Confirmed Sertraline [Zoloft] 50 mg PO DAILY 08/11/18 01/04/20 Previous Rx's Medication Instructions Recorded Oseltamivir [Tamiflu] 75 mg PO Q12HR #10 cap 01/04/20 Allergies Allergy/AdvReac Type Severity Reaction Status Date / Time Penicillins Allergy Rash/Hives Verified 07/11/20 17:42 Sulfa (Sulfonamide Allergy Rash/Hives Verified 07/11/20 17:42 Antibiotics) Review of Systems ROS Statement: Those systems with pertinent positive or pertinent negative responses have been documented in the HPI. ROS Other: All systems not noted in ROS Statement are negative. 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, polycystic ovarian syndrome, heart murmur, GALLBLADDER DYSFUNCTION History of Any Multi-Drug Resistant Organisms: None Reported Past Surgical History: Appendectomy, Cholecystectomy Past Anesthesia/Blood Transfusion Reactions: No Reported Reaction Past Psychological History: Anxiety, Depression Smoking Status: Never smoker Past Alcohol Use History: Occasional Past Drug Use History: None Reported - Past Family History Mother Family Medical History: Myocardial Infarction ([place]), Osteoarthritis ([place]) Father Family Medical History: COPD, Myocardial Infarction ([place]) General Exam Limitations: no limitations General appearance: alert, in no apparent distress, other (This is a well- developed, well-nourished adult female patient in no acute distress. Vital signs upon presentation are temperature 98.1F, pulse 60, respirations 20, blood pressure 135/72, pulse ox 96% on room air.) Eye exam: Present: normal appearance, PERRL, EOMI. Absent: scleral icterus, conjunctival injection, periorbital swelling ENT exam: Present: normal exam, normal oropharynx, mucous membranes moist Respiratory exam: Present: normal lung sounds bilaterally. Absent: respiratory distress, wheezes, rales, rhonchi, stridor Cardiovascular Exam: Present: regular rate, normal rhythm, normal heart sounds. Absent: systolic murmur, diastolic murmur, rubs, gallop, clicks GI/Abdominal exam: Present: soft, normal bowel sounds. Absent: distended, tenderness, guarding, rebound, rigid Neurological exam: Present: alert, oriented X3, CN II-XII intact Psychiatric exam: Present: normal affect, normal mood Skin exam: Present: warm, dry, intact, normal color. Absent: rash Course Vital Signs 07/11/20 07/11/20 17:40 20:28 Temperature 98.1 F 98.4 F Pulse Rate 60 63 Respiratory 20 16 Rate Blood Pressure 135/72 118/79 O2 Sat by Pulse 96 98 Oximetry Medical Decision Making - Medical Decision Making 34 year-old female patient presented to the emergency department today for evaluation of left upper quadrant abdominal discomfort and early satiety. Physical examination was relatively unremarkable. She had no abdominal tenderness. She did have increased pain after my palpation. Labs reviewed and are unremarkable. KUB was unremarkable. Patient was given pain medication and Pepcid here, she states she did feel better. She is afebrile normal vital signs. She'll be discharged. The primary care physician for recheck in 1-2 days. Return parameters discussed in detail. She verbalizes understanding and agrees with this plan. - Lab Data Result diagrams: 07/11/20 18:26 07/11/20 18:26 Lab Results 07/11/20 07/11/20 07/11/20 Range/Units 18:26 18:26 18:26 WBC 5.0 (3.8-10.6) k/uL RBC 4.49 (3.80-5.40) m/uL Hgb 12.7 (11.4-16.0) gm/dL Hct 37.7 (34.0-46.0) % MCV 83.8 (80.0-100.0) fL MCH 28.4 (25.0-35.0) pg MCHC 33.8 (31.0-37.0) g/dL RDW 13.1 (11.5-15.5) % Plt Count 216 (150-450) k/uL Neutrophils % 60 % Lymphocytes % 30 % Monocytes % 6 % Eosinophils % 3 % Basophils % 1 % Neutrophils # 3.0 (1.3-7.7) k/uL Lymphocytes # 1.5 (1.0-4.8) k/uL Monocytes # 0.3 (0-1.0) k/uL Eosinophils # 0.1 (0-0.7) k/uL Basophils # 0.0 (0-0.2) k/uL Sodium (137-145) mmol/L Potassium (3.5-5.1) mmol/L Chloride (98-107) mmol/L Carbon Dioxide (22-30) mmol/L Anion Gap mmol/L BUN (7-17) mg/dL Creatinine (0.52-1.04) mg/dL Est GFR (CKD-EPI)AfAm (>60 ml/min/1.73 sqM) Est GFR (CKD-EPI)NonAf (>60 ml/min/1.73 sqM) Glucose (74-99) mg/dL Calcium (8.4-10.2) mg/dL Total Bilirubin (0.2-1.3) mg/dL AST (14-36) U/L ALT (4-34) U/L Alkaline Phosphatase (38-126) U/L Troponin I (0.000-0.034) ng/mL Total Protein (6.3-8.2) g/dL Albumin (3.5-5.0) g/dL Amylase (30-110) U/L Lipase (23-300) U/L Urine Color Light Yellow Urine Appearance Cloudy H (Clear) Urine pH 7.0 (5.0-8.0) Ur Specific [place] 1.013 (1.001-1.035) Urine Protein Negative (Negative) Urine Glucose (UA) Negative (Negative) Urine Ketones Negative (Negative) Urine Blood Negative (Negative) Urine Nitrite Negative (Negative) Urine Bilirubin Negative (Negative) Urine Urobilinogen <2.0 (<2.0) mg/dL Ur Leukocyte Esterase Small H (Negative) Urine RBC <1 (0-5) /hpf Urine WBC 1 (0-5) /hpf Ur Squamous Epith Cells 15 H (0-4) /hpf Urine Bacteria Rare H (None) /hpf Urine HCG, Qual Not Detected (Not Detectd) 07/11/20 07/11/20 Range/Units 18:26 18:26 WBC (3.8-10.6) k/uL RBC (3.80-5.40) m/uL Hgb (11.4-16.0) gm/dL Hct (34.0-46.0) % MCV (80.0-100.0) fL MCH (25.0-35.0) pg MCHC (31.0-37.0) g/dL RDW (11.5-15.5) % Plt Count (150-450) k/uL Neutrophils % % Lymphocytes % % Monocytes % % Eosinophils % % Basophils % % Neutrophils # (1.3-7.7) k/uL Lymphocytes # (1.0-4.8) k/uL Monocytes # (0-1.0) k/uL Eosinophils # (0-0.7) k/uL Basophils # (0-0.2) k/uL Sodium 138 (137-145) mmol/L Potassium 4.0 (3.5-5.1) mmol/L Chloride 105 (98-107) mmol/L Carbon Dioxide 25 (22-30) mmol/L Anion Gap 8 mmol/L BUN 14 (7-17) mg/dL Creatinine 0.76 (0.52-1.04) mg/dL Est GFR (CKD-EPI)AfAm >90 (>60 ml/min/1.73 sqM) Est GFR (CKD-EPI)NonAf >90 (>60 ml/min/1.73 sqM) Glucose 86 (74-99) mg/dL Calcium 8.9 (8.4-10.2) mg/dL Total Bilirubin 0.4 (0.2-1.3) mg/dL AST 20 (14-36) U/L ALT 14 (4-34) U/L Alkaline Phosphatase 52 (38-126) U/L Troponin I <0.012 (0.000-0.034) ng/mL Total Protein 7.1 (6.3-8.2) g/dL Albumin 4.3 (3.5-5.0) g/dL Amylase 68 (30-110) U/L Lipase 187 (23-300) U/L Urine Color Urine Appearance (Clear) Urine pH (5.0-8.0) Ur Specific [place] (1.001-1.035) Urine Protein (Negative) Urine Glucose (UA) (Negative) Urine Ketones (Negative) Urine Blood (Negative) Urine Nitrite (Negative) Urine Bilirubin (Negative) Urine Urobilinogen (<2.0) mg/dL Ur Leukocyte Esterase (Negative) Urine RBC (0-5) /hpf Urine WBC (0-5) /hpf Ur Squamous Epith Cells (0-4) /hpf Urine Bacteria (None) /hpf Urine HCG, Qual (Not Detectd) - EKG Data -: EKG Interpreted by Hi EKG Comments: EKG obtained at 1834 shows sinus bradycardia with occasional PVCs. Ventricular rate is 55, ND interval 166, QRS duration 84, QTC 440, QTC 420. No evidence of ST elevation or depression. - Radiology Data Radiology results: report reviewed, image reviewed 2 views of the abdomen are obtained. Report was reviewed in its entirety. Impression by Dr. Chapman shows nonacute abdomen. No change. Disposition Clinical Impression: Abdominal pain Disposition: HOME SELF-CARE Condition: Good Instructions (If sedation given, give patient instructions): Abdominal Pain (ED) Additional Instructions: Follow-up with your primary care physician for recheck in 1-2 days. Discuss referral to GI specialist for possible upper GI endoscopy. Consider taking [id number] Pepcid. Return to the emergency department immediately for any new, worsening, or concerning symptoms. Is patient prescribed a controlled substance at d/c from ED?: No Referrals: Shantelle Quezada MD [Primary Care Provider] - 1-2 days Alissa Culver MD [STAFF PHYSICIAN] - 1-2 days Time of Disposition: 20:19
--- NOTE | 2020-07-11 20:12 | XR ---
EXAMINATION TYPE: XR KUB DATE OF EXAM: 07/11/2020 COMPARISON: 05/29/2011 HISTORY: Abdominal pain TECHNIQUE: 2 views upright FINDINGS: There is no sign of intestinal obstruction or pneumoperitoneum. Bowel gas pattern is normal . Fecal pattern is normal. There are no pathologic calcifications over the kidneys. Lung bases are cl ear. IMPRESSION: Nonacute abdomen. No change.
[2020-07-11 20:29] VITALS: BP 118/79; PULSE 63; RESP 16; TEMP 98.4
== END 2020-07-11 20:32 | disposition home or self-care (01) ==
LOC: EC 17:38
DX: R10.12 Left upper quadrant pain (principal); R68.81 Early satiety; F41.9 Anxiety disorder, unspecified; F32.9 Major depressive disorder, single episode, unspecified; Z79.899 Other long term (current) drug therapy; Z88.0 Allergy status to penicillin; Z88.2 Allergy status to sulfonamides; Z90.89 Acquired absence of other organs; Z90.49 Acquired absence of other specified parts of digestive tract
CPT/HCPCS: 36415; 93005; 80053; 82150; 83690; 84484; 85025; 81001; 81025; 74018; 99284; 96374; 96375 ×2; 96361 ×2; J2405; J2270

== ENCOUNTER 2020-08-18 12:03 | Emergency (ER) | payer OTHER ==
[2020-08-18 12:12] VITALS: RESP 18
--- NOTE | 2020-08-18 13:50 | US ---
EXAMINATION TYPE: US venous doppler duplex LE LT DATE OF EXAM: 08/18/2020 1:26 PM COMPARISON: NONE CLINICAL HISTORY: swelling thats resolved now, calf pain. Lt calf pain and foot swelling x 4 days SIDE PERFORMED: Left TECHNIQUE: The lower extremity deep venous system is examined utilizing real time linear array sonog wanda with graded compression, doppler sonography and color-flow sonography. VESSELS IMAGED: Common Femoral Vein Deep Femoral Vein Greater Saphenous Vein * Femoral Vein Popliteal Vein Proximal Calf Veins (* superficial vessels) Left Leg: Negative for DVT Grayscale, color doppler, spectral doppler imaging performed of the deep veins of the left lower extr emity. There is normal flow, compressibility, vascular waveforms. IMPRESSION: No ultrasound evidence for acute DVT in the left lower extremity.
--- NOTE | 2020-08-18 13:52 | ED ---
Lower Extremity Injury HPI - General Chief Complaint: Extremity Injury, Lower Stated Complaint: Leg Pain/Numbness Time Seen by Provider: 08/18/20 12:14 Source: patient Mode of arrival: ambulatory Limitations: no limitations - History of Present Illness Initial Comments: 35 year female presenting today for chief complaint of left lower leg tingling, burning/pain. Patient states the past 2 days she has had a painful area of posterior left calf. She states she noticed a tiny area of swelling on the inner aspect of the left foot. Patient states that that has since resolved. She denies any redness she denies any low back pain posterior thigh pain she denies any complete loss of sensation or weakness. She states is more of a tingling at times. She states that the pain increases with ambulation she denies any specific injury. Patient denies a fever chills general malaise denies . Patient denies history of DVT or pulmonary embolus of recent surgeries immobilization or travel. Denies back injury or loss of bowel bladder control urinary retention. Denies headache visual changes weakness of the upper or lower extremities. Denies chest pain or shortness of breath. Patient denies any exogenous hormone use or smoking history. Remaining every system negative upon arrival patient appears well nontoxic distress - Related Data Home Medications Medication Instructions Recorded Confirmed Sertraline [Zoloft] 50 mg PO DAILY 08/11/18 01/04/20 Previous Rx's Medication Instructions Recorded Oseltamivir [Tamiflu] 75 mg PO Q12HR #10 cap 01/04/20 Allergies Allergy/AdvReac Type Severity Reaction Status Date / Time Penicillins Allergy Rash/Hives Verified 08/18/20 12:07 Sulfa (Sulfonamide Allergy Rash/Hives Verified 08/18/20 12:07 Antibiotics) Review of Systems ROS Statement: Those systems with pertinent positive or pertinent negative responses have been documented in the HPI. ROS Other: All systems not noted in ROS Statement are negative. 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, polycystic ovarian syndrome, heart murmur, GALLBLADDER DYSFUNCTION History of Any Multi-Drug Resistant Organisms: None Reported Past Surgical History: Appendectomy, Cholecystectomy Past Anesthesia/Blood Transfusion Reactions: No Reported Reaction Past Psychological History: Anxiety, Depression Smoking Status: Never smoker Past Alcohol Use History: Occasional Past Drug Use History: None Reported - Past Family History Mother Family Medical History: Myocardial Infarction ([place]), Osteoarthritis ([place]) Father Family Medical History: COPD, Myocardial Infarction ([place]) General Exam - General Exam Comments Initial Comments: General: The patient is awake and alert, in no distress, and does not appear acutely ill. Eye: Pupils are equal, round and reactive to light, extra-ocular movements are intact. No nystagmus. There is normal conjunctiva bilaterally. No signs of i cterus. Cardiovascular: There is a regular rate and rhythm. No murmur, rub or gallop is appreciated. Respiratory: Lungs are clear to auscultation, respirations are non-labored, breath sounds are equal. No wheezes, stridor, rales, or rhonchi. Musculoskeletal: No swelling or edema appreciated on physicale xam, feet and lower legs equal. Normal ROM, no tenderness at knees and ankles b/l. Strength 5/5 of the LE b/l. Sensation intact of the LE b/l. Some pain to the posterior left calf. DP and PT pulses equal bilaterally 2+. Neurological: A&O x 3. CN II-XII intact grossly, There are no obvious motor or sensory deficits. Coordination appears grossly intact. Speech is normal. Skin: Skin is warm and dry and no rashes or lesions are noted. Psychiatric: Cooperative, appropriate mood & affect, normal judgment. Limitations: no limitations Course Vital Signs 08/18/20 08/18/20 08/18/20 12:07 13:11 14:00 Temperature 98.3 F 98.2 F Pulse Rate 51 L 76 Respiratory 18 18 18 Rate Blood Pressure 125/60 117/78 O2 Sat by Pulse 96 100 Oximetry Medical Decision Making - Medical Decision Making 35yo female presenting for paresthesia of left lower leg and pain. No noted injury. All Jovon negative for DVT no edema on exam pulses are strong patient is neuro logically intact. Discussed case with attending Dr. Wilcox who is agreeable to discharge with PCP f/u. Patient agreeable to care plan and discharge. Disposition Clinical Impression: Left leg paresthesias, Pain in left lower leg, Swelling of left foot Disposition: HOME SELF-CARE Condition: Good Additional Instructions: Please use medication as discussed. Please follow-up with family doctor in the next 2 days. return for increasing pain.. Please return to emergency room if the symptoms increase or worsen or for any other concerns. Is patient prescribed a controlled substance at d/c from ED?: No Referrals: Wes Willis [Primary Care Provider] - 1-2 days Time of Disposition: 13:52
[2020-08-18 14:19] VITALS: BP 117/78; PULSE 76; TEMP 98.2
== END 2020-08-18 14:05 | disposition home or self-care (01) ==
LOC: EC 12:03
DX: R20.2 Paresthesia of skin (principal); R22.42 Localized swelling, mass and lump, left lower limb; M79.605 Pain in left leg; F41.9 Anxiety disorder, unspecified; F32.9 Major depressive disorder, single episode, unspecified; Z79.899 Other long term (current) drug therapy; Z88.0 Allergy status to penicillin; Z88.2 Allergy status to sulfonamides
CPT/HCPCS: 99283

== ENCOUNTER 2020-08-29 12:36 | Emergency (ER) | payer OTHER ==
[2020-08-29 12:41] VITALS: BP 116/76; PULSE 68; RESP 18; TEMP 98.9
--- NOTE | 2020-08-29 12:58 | ED ---
Upper Extremity HPI - General Chief Complaint: Extremity Injury, Upper Stated Complaint: right should pain Time Seen by Provider: 08/29/20 12:43 Source: patient, RN notes reviewed Mode of arrival: ambulatory Limitations: no limitations - History of Present Illness Initial Comments: This is a 35-year-old female presents emergency Department chief complaint right shoulder pain. Patient states has been bothersome for years but has worsened over the last several weeks. Patient is right-hand dominant. Patient states is worse with any movement and lifting. Patient states it is better at rest. Denies any paresthesias no chest pain or shortness breath. No headache or neck pain. Patient states sometimes the pain does radiate towards her neck over the trapezius region - Related Data Home Medications Medication Instructions Recorded Confirmed Medroxyprogesterone Acetate 10 mg PO DAILY 08/29/20 08/29/20 [Provera] Pantoprazole Sodium [Protonix] 20 mg PO DAILY 08/29/20 08/29/20 Previous Rx's Medication Instructions Recorded predniSONE 50 mg PO DAILY #5 tab 08/29/20 Allergies Allergy/AdvReac Type Severity Reaction Status Date / Time Penicillins Allergy Rash/Hives Verified 08/29/20 12:41 Sulfa (Sulfonamide Allergy Rash/Hives Verified 08/29/20 12:41 Antibiotics) Review of Systems ROS Statement: Those systems with pertinent positive or pertinent negative responses have been documented in the HPI. ROS Other: All systems not noted in ROS Statement are negative. 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, polycystic ovarian syndrome, heart murmur, GALLBLADDER DYSFUNCTION History of Any Multi-Drug Resistant Organisms: None Reported Past Surgical History: Appendectomy, Cholecystectomy Past Anesthesia/Blood Transfusion Reactions: No Reported Reaction Past Psychological History: Anxiety, Depression Smoking Status: Never smoker Past Alcohol Use History: Occasional Past Drug Use History: None Reported - Past Family History Mother Family Medical History: Myocardial Infarction ([place]), Osteoarthritis ([place]) Father Family Medical History: COPD, Myocardial Infarction ([place]) General Exam Limitations: no limitations General appearance: alert, in no apparent distress Head exam: Present: atraumatic, normocephalic, normal inspection Eye exam: Present: normal appearance, PERRL, EOMI. Absent: scleral icterus, conjunctival injection, periorbital swelling ENT exam: Present: normal exam, normal oropharynx, mucous membranes moist Neck exam: Present: normal inspection, tenderness (Mild right trapezius tenderness), full ROM. Absent: meningismus, lymphadenopathy Respiratory exam: Present: normal lung sounds bilaterally. Absent: respiratory distress, wheezes, rales, rhonchi, stridor Cardiovascular Exam: Present: regular rate, normal rhythm, normal heart sounds. Absent: systolic murmur, diastolic murmur, rubs, gallop, clicks Extremities exam: Present: other (Right shoulder there is pain with range of motion which is mild this is exacerbated with neers and apprehension test she does have pain with external rotation no discomfort with internal rotation. Patient's delineator strength equal bilaterally, neurovascular intact) Neurological exam: Present: alert, oriented X3, CN II-XII intact, reflexes normal. Absent: motor sensory deficit Skin exam: Present: warm, dry, intact, normal color. Absent: rash Course Vital Signs 08/29/20 12:37 Temperature 98.9 F Pulse Rate 68 Respiratory 18 Rate Blood Pressure 116/76 O2 Sat by Pulse 97 Oximetry Medical Decision Making - Medical Decision Making X-ray reviewed no acute abnormality. Patient has right shoulder rotator cuff insufficiency, tendinitis. Patient follow-up with orthopedics for physical therapy. Disposition Clinical Impression: Rotator cuff insufficiency of right shoulder Disposition: HOME SELF-CARE Condition: Stable Instructions (If sedation given, give patient instructions): Rotator Cuff Injury (ED), Rotator Cuff Tendinitis (ED) Additional Instructions: Please return to the Emergency Department if symptoms worsen or any other concerns. Prescriptions: predniSONE 50 mg PO DAILY #5 tab Is patient prescribed a controlled substance at d/c from ED?: No Referrals: Wes Willis [Primary Care Provider] - 1-2 days Harshal Bueno MD [STAFF PHYSICIAN] - 1-2 days Time of Disposition: 13:50
--- NOTE | 2020-08-29 13:22 | XR ---
EXAMINATION TYPE: XR shoulder complete RT DATE OF EXAM: 08/29/2020 CLINICAL HISTORY: pain TECHNIQUE: Three views of the right shoulder are obtained. COMPARISON: None FINDINGS: There is no acute fracture/dislocation evident. The acromioclavicular and glenohumeral manav int spaces appear within normal limits. The visualized ribs are intact and unremarkable. IMPRESSION: 1. There is no acute fracture or dislocation. ICD 10 NO FRACTURE, INITIAL EVALUATION
[2020-08-29] MEDS ORDERED: ACET/COD 300 MG/30 MG STARTER PACK 6 TAB BTL PO STA (13:50)
== END 2020-08-29 14:02 | disposition home or self-care (01) ==
LOC: EC 12:36
DX: M25.311 Other instability, right shoulder (principal); Z79.899 Other long term (current) drug therapy; Z88.0 Allergy status to penicillin; Z88.2 Allergy status to sulfonamides
CPT/HCPCS: 99283

== ENCOUNTER → 2020-08-29 | Outpatient (CLI) | payer OTHER | END | disposition home or self-care (01) | LOC: LABWHC1 12:38 | PROVIDERS: ATTEND Family Medicine | DX: Z20.828 Contact with and (suspected) exposure to other viral communicable diseases (principal) | CPT/HCPCS: U0003; C9803 ==

== ENCOUNTER 2020-09-28 08:42 | Day surgery (SDC) | payer OTHER ==
[2020-09-27 08:50] VITALS: BMI 30.9
[~2020-09-28 08:42] MED LIST changes: -DEXAMETHASONE SOD PHOSPHATE 10 MG/ML 1 ML VIAL IV ONE; -HEPARIN SODIUM,PORCINE 5,000 UNIT/ML 1 ML VIAL SQ ONE; -HYDROmorphone 0.5 MG/0.5 ML SYRINGE IVP PRN; -MIDAZOLAM 2 MG/2 ML VIAL IV PRN; -ONDANSETRON 4 MG/2 ML VIAL IVP ONE; -SCOPOLAMINE 1.5MG/72HR PATCH TRANSDERM ONE
[2020-09-28] MEDS ORDERED: LIDOCAINE 1% (10MG/ML) FOR IV START INTRADERMA ONE (09:15)
[2020-09-28 09:31] VITALS: RESP 16; TEMP 98
[2020-09-28] MEDS ORDERED: fentaNYL (PF) 50 MCG/ML 2 ML AMP ONE (09:47)
[2020-09-28] MEDS ORDERED: PROPOFOL 10 MG/ML 20 ML VIAL IV ONE (09:47)
[2020-09-28] MEDS ORDERED: LIDOCAINE 1% INJ 10MG/ML (20 ML MDV) ONE (09:47)
[2020-09-28] MEDS ORDERED: MIDAZOLAM 2 MG/2 ML VIAL ONE (09:47)
--- NOTE | 2020-09-28 09:55 | P.GSHP ---
History of Present Illness H&P Date: 09/28/20 Chief Complaint: GERD Is a 35-year-old female who presents today for EGD. She's had issues with GERD. 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, polycystic ovarian syndrome, heart murmur, GALLBLADDER DYSFUNCTION History of Any Multi-Drug Resistant Organisms: None Reported Past Surgical History: Appendectomy, Cholecystectomy Past Anesthesia/Blood Transfusion Reactions: No Reported Reaction, Motion Sickness, Postoperative Nausea & Vomiting (PONV) Smoking Status: Never smoker - Past Family History Mother Family Medical History: Myocardial Infarction ([place]), Osteoarthritis ([place]) Father Family Medical History: COPD, Myocardial Infarction ([place]) Medications and Allergies Home Medications Medication Instructions Recorded Confirmed Type Medroxyprogesterone Acetate 10 mg PO Q30D 08/29/20 09/27/20 History [Provera] Pantoprazole Sodium [Protonix] 20 mg PO DAILY 08/29/20 09/27/20 History Acetaminophen [Tylenol] 325 mg PO DAILY PRN 09/27/20 09/27/20 History Albuterol Inhaler [Ventolin Hfa 1 puff INHALATION DAILY PRN 09/27/20 09/27/20 History Inhaler] Ibuprofen [Motrin Ib] 200 mg PO DAILY PRN 09/27/20 09/27/20 History Letrozole 2.5 mg PO DIRECTED 09/27/20 09/27/20 History Allergies Allergy/AdvReac Type Severity Reaction Status Date / Time Penicillins Allergy Rash/Hives Verified 09/28/20 09:09 Sulfa (Sulfonamide Allergy Rash/Hives Verified 09/28/20 09:09 Antibiotics) Surgical - Exam Vital Signs Temp Pulse Resp BP Pulse Ox 98 F 65 16 122/70 98 09/28/20 09:24 09/28/20 09:24 09/28/20 09:24 09/28/20 09:24 09/28/20 09:24 - General well developed, well nourished, no distress - Eyes PERRL - ENT normal pinna - Neck no masses - Respiratory normal expansion - Cardiovascular Rhythm: regular - Abdomen Abdomen: soft, non tender Assessment and Plan Assessment: GERD. We'll perform EGD.
--- NOTE | 2020-09-28 10:02 | P.OP ---
Date of Procedure: 09/28/20 Preoperative Diagnosis: GERD Postoperative Diagnosis: Antral gastritis Small hiatal hernia Mild esophagitis Procedure(s) Performed: EGD Description of Procedure: The patient's placed on the endoscopy table lateral position. She received IV sedation. The gastroscope placed oropharynx passed in the esophagus into the stomach. Scope was placed through the pylorus. First and second portion of the duodenum appeared normal. Scope was brought back the antrum this. Mildly inflamed. A biopsies performed. Scope was unretroflexed and remainder of the stomach appeared normal. The GE junction was at 8 cm. There was a small hiatal hernia. The hiatal hernia sliding. The distal esophagus appeared mildly inflamed a biopsies performed. The proximal esophagus appeared normal. Scope withdrawn for patient.
[2020-09-28 10:25] VITALS: BP 121/70; PULSE 82
== END 2020-09-28 10:39 | disposition home or self-care (01) ==
LOC: ORWHC2ENDO 08:42
PROVIDERS: ATTEND Surgery
DX: K29.50 Unspecified chronic gastritis without bleeding (principal); K44.9 Diaphragmatic hernia without obstruction or gangrene; K21.00 Gastro-esophageal reflux disease with esophagitis, without bleeding; I25.10 Atherosclerotic heart disease of native coronary artery without angina pectoris; J45.909 Unspecified asthma, uncomplicated; E28.2 Polycystic ovarian syndrome; R01.1 Cardiac murmur, unspecified; D49.89 Neoplasm of unspecified behavior of other specified sites; Z90.49 Acquired absence of other specified parts of digestive tract; Z98.890 Other specified postprocedural states; Z82.61 Family history of arthritis; Z82.49 Family history of ischemic heart disease and other diseases of the circulatory system; Z82.5 Family history of asthma and other chronic lower respiratory diseases; Z79.811 Long term (current) use of aromatase inhibitors; Z79.899 Other long term (current) drug therapy; Z88.0 Allergy status to penicillin; Z88.2 Allergy status to sulfonamides
CPT/HCPCS: 81025; 88305; 43239; J2250; J2001; J3010; J2704

== ENCOUNTER → 2020-10-02 | Outpatient (CLI) | payer OTHER | END | disposition home or self-care (01) | LOC: LABWHC1 14:16 | PROVIDERS: ATTEND Family Medicine | DX: Z20.828 Contact with and (suspected) exposure to other viral communicable diseases (principal) | CPT/HCPCS: U0003; C9803 ==

== ENCOUNTER → 2020-10-16 | Outpatient (CLI) | payer OTHER ==
--- NOTE | 2020-10-17 06:59 | MR ---
EXAMINATION TYPE: MR brain wo/w con DATE OF EXAM: 10/16/2020 COMPARISON: NONE HISTORY: Dizziness and headache. TECHNIQUE: Multiplanar, multisequence images of the brain and brainstem is performed without and with IV contras t, utilizing 8ml mL intravenous Gadavist . FINDINGS: Diffusion weighted images demonstrate no evidence of a recent infarct or other diffusion ab normality. There is no extra-axial fluid collection or significant white matter signal abnormality. The ventricular system and cisternal spaces are normal in size and appearance. The brain volume is age appropriate. Midline structures demonstrate normal morphology. The craniocervical junction appears within normal limits. Post contrast images demonstrate no abnormal enhancement. The dural venous sinuses appear pa tent. The visualized sinuses are clear and the globes are intact. No suspicious fluid signal in masto id air cells bilaterally. IMPRESSION: Unremarkable study.
== END | disposition home or self-care (01) ==
LOC: RADMRIMAIN 08:46
PROVIDERS: ATTEND Family Medicine
DX: H53.2 Diplopia (principal); R42 Dizziness and giddiness; R51.9 Headache, unspecified
CPT/HCPCS: 70553; A9585

== ENCOUNTER 2021-04-16 07:38 | Emergency (ER) | payer OTHER ==
[2021-04-16 07:41] VITALS: BP 142/90; PULSE 59; RESP 18; TEMP 97.6
--- NOTE | 2021-04-16 08:01 | ED ---
General Adult HPI - General Chief complaint: Neck Pain/Injury Stated complaint: neck/shoulder pain Time Seen by Provider: 04/16/21 07:41 Source: patient, RN notes reviewed, old records reviewed Mode of arrival: ambulatory Limitations: no limitations - History of Present Illness Initial comments: 35-year-old female presenting with right-sided neck and shoulder pain. Patient has had issues with her neck and shoulder in the past. She denies specific injury. She had contacted primary care physician today but was unable to be evaluated. She states the pain is worse with movement of the right upper extremity. There is no vomiting. Patient is uncertain if she is . She has not had previous imaging of the neck. No fevers or chills. - Related Data Home Medications Medication Instructions Recorded Confirmed Medroxyprogesterone Acetate 10 mg PO Q30D 08/29/20 09/27/20 [Provera] Pantoprazole Sodium [Protonix] 20 mg PO DAILY 08/29/20 09/27/20 Acetaminophen [Tylenol] 325 mg PO DAILY PRN 09/27/20 09/27/20 Albuterol Inhaler [Ventolin Hfa 1 puff INHALATION DAILY PRN 09/27/20 09/27/20 Inhaler] Ibuprofen [Motrin Ib] 200 mg PO DAILY PRN 09/27/20 09/27/20 Letrozole 2.5 mg PO DIRECTED 09/27/20 09/27/20 Previous Rx's Medication Instructions Recorded Cyclobenzaprine [Flexeril] 5 mg PO TID PRN 3 Days #9 tablet 04/16/21 Ibuprofen [Motrin] 600 mg PO Q8HR PRN #24 tab 04/16/21 Allergies Allergy/AdvReac Type Severity Reaction Status Date / Time Penicillins Allergy Rash/Hives Verified 04/16/21 07:41 Sulfa (Sulfonamide Allergy Rash/Hives Verified 04/16/21 07:41 Antibiotics) Review of Systems ROS Statement: Those systems with pertinent positive or pertinent negative responses have been documented in the HPI. ROS Other: All systems not noted in ROS Statement are negative. 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, polycystic ovarian syndrome, heart murmur, GALLBLADDER DYSFUNCTION History of Any Multi-Drug Resistant Organisms: None Reported Past Surgical History: Appendectomy, Cholecystectomy Past Anesthesia/Blood Transfusion Reactions: No Reported Reaction, Motion Sickness, Postoperative Nausea & Vomiting (PONV) Past Psychological History: Anxiety, Depression Smoking Status: Never smoker Past Alcohol Use History: None Reported Past Drug Use History: None Reported - Past Family History Mother Family Medical History: Myocardial Infarction ([place]), Osteoarthritis ([place]) Father Family Medical History: COPD, Myocardial Infarction ([place]) General Exam Limitations: no limitations General appearance: alert, in no apparent distress Head exam: Present: atraumatic, normocephalic Eye exam: Present: normal appearance, PERRL ENT exam: Present: normal exam Neck exam: Present: normal inspection, tenderness (Tenderness in the right trapezius, and paraspinal muscles.). Absent: meningismus, full ROM Respiratory exam: Present: normal lung sounds bilaterally. Absent: respiratory distress, wheezes Cardiovascular Exam: Present: regular rate, normal rhythm GI/Abdominal exam: Present: soft. Absent: distended, tenderness Extremities exam: Present: normal inspection, normal capillary refill. Absent: pedal edema, calf tenderness Neurological exam: Present: alert, oriented X3, CN II-XII intact. Absent: motor sensory deficit Psychiatric exam: Present: normal affect, normal mood Skin exam: Present: warm, dry, intact. Absent: cyanosis, diaphoretic Course Vital Signs 04/16/21 07:39 Temperature 97.6 F Pulse Rate 59 L Respiratory 18 Rate Blood Pressure 142/90 O2 Sat by Pulse 97 Oximetry Medical Decision Making - Medical Decision Making 35-year-old female presenting with right-sided neck pain, tenderness with range of motion of the right shoulder over the trapezius and paraspinal muscles. She had been taking Tylenol and Aleve with only minimal relief. Patient prescribed prescription strength ibuprofen as well as Flexeril. She is instructed to not drive or operate heavy equipment while taking Flexeril. She will follow with her primary care physician, she may require further outpatient follow-up with orthopedics, is given a referral as needed. - Lab Data Lab Results 04/16/21 04/16/21 Range/Units 08:05 08:05 Urine HCG, Qual Not Detected (Not Detectd) Urine Opiates Screen Not Detected (NotDetected) Ur Oxycodone Screen Not Detected (NotDetected) Urine Methadone Screen Not Detected (NotDetected) Ur Propoxyphene Screen Not Detected (NotDetected) Ur Barbiturates Screen Not Detected (NotDetected) U Tricyclic Antidepress Not Detected (NotDetected) Ur Phencyclidine Scrn Not Detected (NotDetected) Ur Amphetamines Screen Not Detected (NotDetected) U Methamphetamines Scrn Not Detected (NotDetected) U Benzodiazepines Scrn Not Detected (NotDetected) Urine Cocaine Screen Not Detected (NotDetected) U Marijuana (THC) Screen Not Detected (NotDetected) Disposition Clinical Impression: Strain of neck muscle Disposition: HOME SELF-CARE Condition: Good Instructions (If sedation given, give patient instructions): Cervical Strain (ED) Additional Instructions: Please follow up with her primary care physician. If symptoms persist may require follow-up with orthopedics. Prescriptions: Cyclobenzaprine [Flexeril] 5 mg PO TID PRN 3 Days #9 tablet PRN Reason: Muscle Spasm Ibuprofen [Motrin] 600 mg PO Q8HR PRN #24 tab PRN Reason: Pain Is patient prescribed a controlled substance at d/c from ED?: No Referrals: Wes Willis [Primary Care Provider] - 1-2 days Nicola Fernando MD [STAFF PHYSICIAN] - 1-2 days Time of Disposition: 08:39
[2021-04-16 08:21] LABS: Amphetamine Screen,Urine Not Detected (NotDetected); Barbiturate Screen,Urine Not Detected (NotDetected); Benzodiazepines Screen,Urine Not Detected (NotDetected); Cocaine Screen,Urine Not Detected (NotDetected); Methadone Screen, Urine Not Detected (NotDetected); Opiate Screen,Urine Not Detected (NotDetected); Oxycodone Screen, Urine Not Detected (NotDetected); Phencyclidine Screen,Urine Not Detected (NotDetected); Tricyclic Antidepressant,Urine Not Detected (NotDetected); Urn Cannabinoid Scrn Not Detected (NotDetected)
[2021-04-16] MEDS ORDERED: KETOROLAC 15 MG/ML 1 ML VIAL IM STA (08:31)
== END 2021-04-16 08:58 | disposition home or self-care (01) ==
LOC: EC 07:38
DX: S16.1XXA Strain of muscle, fascia and tendon at neck level, initial encounter (principal); M25.511 Pain in right shoulder; K21.9 Gastro-esophageal reflux disease without esophagitis; J45.909 Unspecified asthma, uncomplicated; E28.2 Polycystic ovarian syndrome; F41.9 Anxiety disorder, unspecified; F32.9 Major depressive disorder, single episode, unspecified; Z79.1 Long term (current) use of non-steroidal anti-inflammatories (NSAID); Z79.51 Long term (current) use of inhaled steroids; Z88.0 Allergy status to penicillin; X58.XXXA Exposure to other specified factors, initial encounter
CPT/HCPCS: 81025; 80306; 99283; 96372; J1885

== ENCOUNTER → 2021-04-18 | Outpatient (CLI) | payer OTHER ==
--- NOTE | 2021-04-19 07:30 | XR ---
EXAMINATION TYPE: XR cervical spine w flex/ext DATE OF EXAM: 04/18/2021 TECHNIQUE: Frontal, lateral, oblique, swimmers, and open mouth view of the cervical spine are obtaine d. HISTORY: S16.1XXA, M25.511 - Neck strain, RT shoulder pain COMPARISON: None FINDINGS: The cervical spine is visualized in its entirety from C1 thru the top of T1 level, it is s atisfactory in alignment without evidence of acute fracture or dislocation. Flexion and extension vie ws as well as neutral views demonstrate appropriate The pre-vertebral soft tissue appears within norm al limits. The C1-C2 articulation is within normal limits on the open mouth view. The oblique image s are within normal limits. IMPRESSION: No acute fracture or dislocation is seen in the cervical spine.
== END | disposition home or self-care (01) ==
LOC: RADXRMAIN 16:48
PROVIDERS: ATTEND Family Medicine
DX: S16.1XXA Strain of muscle, fascia and tendon at neck level, initial encounter (principal); M25.511 Pain in right shoulder
CPT/HCPCS: 72052

== ENCOUNTER 2021-07-23 16:01 | Emergency (ER) | payer OTHER ==
[2021-07-23 16:44] VITALS: TEMP 98.3
[2021-07-23] MEDS ORDERED: ONDANSETRON 4 MG/2 ML VIAL IVP STA (17:18)
[2021-07-23 17:44] LABS: Basophils # (A) 0.1 k/uL (0-0.2); Basophils % (A) 1 %; Eosinophils # (A) 0.1 k/uL (0-0.7); Eosinophils % (A) 2 %; HCT 41.2 % (34.0-46.0); HGB 13.9 gm/dL (11.4-16.0); Lymphocytes # (A) 1.7 k/uL (1.0-4.8); Lymphocytes % (A) 30 %; MCH 29.2 pg (25.0-35.0); MCHC 33.7 g/dL (31.0-37.0); MCV 86.9 fL (80.0-100.0); Mean Platelet Volume 8.3; Monocytes # (A) 0.3 k/uL (0-1.0); Monocytes % (A) 5 %; Neutrophils # (A) 3.4 k/uL (1.3-7.7); Neutrophils % (A) 60 %; Platelet Count 225 k/uL (150-450); RBC 4.74 m/uL (3.80-5.40); RDW 14.3 % (11.5-15.5); WBC 5.7 k/uL (3.8-10.6)
[2021-07-23 17:47] LABS: Appearance,Urine Cloudy (Clear); Bacteria,Urine Rare /hpf; Bilirubin,Urine Negative (Negative); Blood,Urine Negative (Negative); Color,Urine Light Yellow; Glucose,Urine (UA) Negative (Negative); Ketones,Urine Negative (Negative); Leukocyte Esterase,Urine Moderate (Negative); Nitrite,Urine Negative (Negative); PH, Urine 6.5 (5.0-8.0); Protein,Urine Negative (Negative); RBC,Urine <1 /hpf (0-5); Specific Gravity,Urine 1.005 (1.001-1.035); Squamous Epithelial Cell,Urine 8 /hpf (0-4); Urobilinogen,Urine <2.0 mg/dL (<2.0); WBC,Urine 8 /hpf (0-5)
[2021-07-23 18:04] LABS: ALT 19 U/L (4-34); AST 25 U/L (14-36); African American GFR (CKD) >90 (>60 ml/min/1.73 sqM); Albumin 4.4 g/dL (3.5-5.0); Alkaline Phosphatase 61 U/L (38-126); Anion Gap 7 mmol/L; Blood Urea Nitrogen 13 mg/dL (7-17); Calcium 9.3 mg/dL (8.4-10.2); Carbon Dioxide 24 mmol/L (22-30); Chloride 106 mmol/L (98-107); Glucose 89 mg/dL (74-99); Non-African American GFR(CKD) >90 (>60 ml/min/1.73 sqM); Potassium 4.1 mmol/L (3.5-5.1); Sodium 137 mmol/L (137-145); Total Bilirubin 0.2 mg/dL (0.2-1.3); Total Protein 7.1 g/dL (6.3-8.2)
[2021-07-23] MEDS ORDERED: cefTRIAXone IN SWFI 1,000 MG/10 ML SYRINGE IVP STA (18:07)
--- NOTE | 2021-07-23 18:09 | CT ---
EXAMINATION TYPE: CT brain wo con DATE OF EXAM: 07/23/2021 COMPARISON: None HISTORY: headaches, dizziness CT DLP: 1094.4 mGycm Automated exposure control for dose reduction was used. Ventricles have normal size. There is no mass effect nor midline shift. There is no sign of intracran ial hemorrhage. The calvarium is intact. Skull base is intact. There is normal aeration of the mastoi d sinuses. IMPRESSION: Negative unenhanced head CT scan.
--- NOTE | 2021-07-23 18:34 | ED ---
Headache HPI - General Source: patient, RN notes reviewed Mode of arrival: ambulatory Limitations: no limitations <Renaldo Louis - Last Filed: 07/23/21 18:08> <Angie Roman - Last Filed: 07/27/21 14:39> - General Chief Complaint: Headache Stated Complaint: head pain, dizziness Time Seen by Provider: 07/23/21 16:45 - History of Present Illness Initial Comments: Patient is a 36-year-old female that presents to the emergency department complaining of a headache. She notes that she's been done with this for the past several months. She notes initially she had a pop in the right side of her head white flashing and a headache. She notes that since then she's had several headaches that been very similar in characteristic. She notes that with these headaches she [id number] dizzy and lightheaded. She notes that she drinks 21 for the day. She notes that she has not followed up her head and the brain s cans since then. She noted that she was mildly nauseous while sitting up in bed in exam and interview. She notes that while sitting up her pain was very minimal. She denied any other issues or complaints. She was well-appearing 36-year-old female. She denied any chest pain shortness of breath during diarrhea constipation fever fatigue chills. (Renaldo Louis) - Related Data Home Medications Medication Instructions Recorded Confirmed Acetaminophen [Tylenol] 650 mg PO Q8H PRN 09/27/20 07/23/21 Previous Rx's Medication Instructions Recorded Meclizine [Antivert] 25 mg PO TID PRN #15 tab 07/23/21 Allergies Allergy/AdvReac Type Severity Reaction Status Date / Time Penicillins Allergy Rash/Hives Verified 07/23/21 17:49 Sulfa (Sulfonamide Allergy Rash/Hives Verified 07/23/21 17:49 Antibiotics) Review of Systems ROS Other: All systems not noted in ROS Statement are negative. <Renaldo Louis - Last Filed: 07/23/21 18:08> ROS Other: All systems not noted in ROS Statement are negative. <Angie Roman - Last Filed: 07/27/21 14:39> ROS Statement: Those systems with pertinent positive or pertinent negative responses have been documented in the HPI. 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, polycystic ovarian syndrome, heart murmur, GALLBLADDER DYSFUNCTION History of Any Multi-Drug Resistant Organisms: None Reported Past Surgical History: Appendectomy, Cholecystectomy Past Anesthesia/Blood Transfusion Reactions: No Reported Reaction, Motion Sickness, Postoperative Nausea & Vomiting (PONV) Past Psychological History: Anxiety, Depression Smoking Status: Never smoker Past Alcohol Use History: None Reported Past Drug Use History: None Reported - Past Family History Mother Family Medical History: Myocardial Infarction ([place]), Osteoarthritis ([place]) Father Family Medical History: COPD, Myocardial Infarction ([place]) <Renaldo Louis - Last Filed: 07/23/21 18:08> General Exam Limitations: no limitations General appearance: alert, in no apparent distress Head exam: Present: atraumatic, normocephalic, normal inspection Eye exam: Present: normal appearance, PERRL, EOMI. Absent: scleral icterus, conjunctival injection, periorbital swelling ENT exam: Present: normal exam Neck exam: Present: normal inspection Respiratory exam: Present: normal lung sounds bilaterally. Absent: respiratory distress, wheezes, rales, rhonchi, stridor Cardiovascular Exam: Present: regular rate, normal rhythm, normal heart sounds. Absent: systolic murmur, diastolic murmur, rubs, gallop, clicks GI/Abdominal exam: Present: soft, normal bowel sounds. Absent: distended, t enderness, guarding, rebound, rigid Extremities exam: Present: normal inspection, full ROM, normal capillary refill. Absent: tenderness, pedal edema, joint swelling, calf tenderness Neurological exam: Present: alert, oriented X3 Psychiatric exam: Present: normal affect, normal mood Skin exam: Present: warm, dry, intact, normal color. Absent: rash <Renaldo Louis - Last Filed: 07/23/21 18:08> Course Vital Signs 07/23/21 07/23/21 16:37 18:47 Temperature 98.3 F Pulse Rate 59 L 60 Respiratory 16 18 Rate Blood Pressure 123/66 124/74 O2 Sat by Pulse 99 100 Oximetry Medical Decision Making - Lab Data Result diagrams: 07/23/21 17:30 07/23/21 17:30 - EKG Data -: EKG Interpreted by Nm EKG shows normal: sinus rhythm Rate: bradycardia - Radiology Data Radiology results: report reviewed, image reviewed <Renaldo Louis - Last Filed: 07/23/21 18:08> - Lab Data Result diagrams: 07/23/21 17:30 07/23/21 17:30 <Angie Roman - Last Filed: 07/27/21 14:39> - Medical Decision Making 36-year-old female complaining of a headache for the past several months. Labs, CT of the brain, EKG 4 mg of Zofran ordered. Labs unremarkable. Urinalysis shows 8 white blood cells, 1 g Rocephin ordered for UTI. Case discussed with Dr. Roman, patient can discharge home with follow-up to neurologist. (Renaldo Louis) I was available for consultation in the emergency department. The history and physical exam were done by the midlevel provider. [facility] I reviewed the case with the midlevel provider and based on their presentation of the patient, I agree with the assessment, medical decision making and plan of care as documented. Chart was dictated using [employer] dictation software. Attempts were made to correct any dictation errors however some typographical errors may persist. Patient was seen during a national state of emergency due to the Covid-19 pandemic. (Angie Roman) - Lab Data Lab Results 07/23/21 07/23/21 07/23/21 Range/Units 17:30 17:30 17:30 WBC 5.7 (3.8-10.6) k/uL RBC 4.74 (3.80-5.40) m/uL Hgb 13.9 (11.4-16.0) gm/dL Hct 41.2 (34.0-46.0) % MCV 86.9 (80.0-100.0) fL MCH 29.2 (25.0-35.0) pg MCHC 33.7 (31.0-37.0) g/dL RDW 14.3 (11.5-15.5) % Plt Count 225 (150-450) k/uL MPV 8.3 Neutrophils % 60 % Lymphocytes % 30 % Monocytes % 5 % Eosinophils % 2 % Basophils % 1 % Neutrophils # 3.4 (1.3-7.7) k/uL Lymphocytes # 1.7 (1.0-4.8) k/uL Monocytes # 0.3 (0-1.0) k/uL Eosinophils # 0.1 (0-0.7) k/uL Basophils # 0.1 (0-0.2) k/uL Sodium 137 (137-145) mmol/L Potassium 4.1 (3.5-5.1) mmol/L Chloride 106 (98-107) mmol/L Carbon Dioxide 24 (22-30) mmol/L Anion Gap 7 mmol/L BUN 13 (7-17) mg/dL Creatinine 0.80 (0.52-1.04) mg/dL Est GFR (CKD-EPI)AfAm >90 (>60 ml/min/1.73 sqM) Est GFR (CKD-EPI)NonAf >90 (>60 ml/min/1.73 sqM) Glucose 89 (74-99) mg/dL Calcium 9.3 (8.4-10.2) mg/dL Total Bilirubin 0.2 (0.2-1.3) mg/dL AST 25 (14-36) U/L ALT 19 (4-34) U/L Alkaline Phosphatase 61 (38-126) U/L Total Protein 7.1 (6.3-8.2) g/dL Albumin 4.4 (3.5-5.0) g/dL Urine Color Light Yellow Urine Appearance Cloudy H (Clear) Urine pH 6.5 (5.0-8.0) Ur Specific [place] 1.005 (1.001-1.035) Urine Protein Negative (Negative) Urine Glucose (UA) Negative (Negative) Urine Ketones Negative (Negative) Urine Blood Negative (Negative) Urine Nitrite Negative (Negative) Urine Bilirubin Negative (Negative) Urine Urobilinogen <2.0 (<2.0) mg/dL Ur Leukocyte Esterase Moderate H (Negative) Urine RBC <1 (0-5) /hpf Urine WBC 8 H (0-5) /hpf Ur Squamous Epith Cells 8 H (0-4) /hpf Urine Bacteria Rare H (None) /hpf - EKG Data EKG Comments: Ventricular rate 54 bpm, MA interval 182 ms, QRS duration 88 ms, QTC 424 ms, PRT axes 19/2/6. Sinus bradycardia, cannot rule out anterior infarct age undetermined. Abnormal ECG. (Renaldo Louis) - Radiology Data CT of the brain: Negative unenhanced head computed tomography scan. (Renaldo Louis) Disposition Is patient prescribed a controlled substance at d/c from ED?: No Time of Disposition: 18:35 <Renaldo Louis - Last Filed: 07/23/21 18:08> <Angie Roman - Last Filed: 07/27/21 14:39> Clinical Impression: Headache, Dizziness Disposition: HOME SELF-CARE Condition: Stable Instructions (If sedation given, give patient instructions): Acute Headache (ED) Additional Instructions: Please return to the Emergency Department if symptoms worsen or any other concerns. Follow-up with primary care in 1-2 days. Follow-up with neurology as needed. Take medication as prescribed. Prescriptions: Meclizine [Antivert] 25 mg PO TID PRN #15 tab PRN Reason: Vertigo Referrals: Wes Willis [Primary Care Provider] - 1-2 days Gurjit Mckeon MD [STAFF PHYSICIAN] - 1-2 days
[2021-07-23 18:52] VITALS: BP 124/74; PULSE 60; RESP 18
== END 2021-07-23 18:49 | disposition home or self-care (01) ==
LOC: EC 16:01
DX: R51.9 Headache, unspecified (principal); R42 Dizziness and giddiness; J45.909 Unspecified asthma, uncomplicated; K21.9 Gastro-esophageal reflux disease without esophagitis; F41.9 Anxiety disorder, unspecified; F32.9 Major depressive disorder, single episode, unspecified; Z88.0 Allergy status to penicillin; Z88.2 Allergy status to sulfonamides; Z90.49 Acquired absence of other specified parts of digestive tract
CPT/HCPCS: 99284; 96374; 96375; 36415; 93005; 80053; 85025; 81001; 70450; J2405; J0696

== ENCOUNTER 2022-09-01 08:33 | Emergency (ER) | payer OTHER ==
[2022-09-01 08:37] VITALS: BP 131/86; PULSE 73; RESP 16; TEMP 98.5
[2022-09-01] MEDS ORDERED: ONDANSETRON ODT 4 MG TAB PO STA (08:51)
[2022-09-01 09:14] LABS: Basophils % (A) 0 %; Eosinophils # (A) 0.1 k/uL (0-0.7); Eosinophils % (A) 1 %; HCT 40.7 % (34.0-46.0); HGB 13.8 gm/dL (11.4-16.0); Lymphocytes % (A) 20 %; MCH 28.4 pg (25.0-35.0); MCHC 33.9 g/dL (31.0-37.0); MCV 83.7 fL (80.0-100.0); Mean Platelet Volume 8.1; Monocytes # (A) 0.2 k/uL (0-1.0); Monocytes % (A) 4 %; Neutrophils # (A) 3.6 k/uL (1.3-7.7); Neutrophils % (A) 73 %; Platelet Count 250 k/uL (150-450); RBC 4.86 m/uL (3.80-5.40); RDW 13.5 % (11.5-15.5)
[2022-09-01 09:34] LABS: ALT 15 U/L (4-34); AST 22 U/L (14-36); African American GFR (CKD) >90 (>60 ml/min/1.73 sqM); Albumin 4.7 g/dL (3.5-5.0); Alkaline Phosphatase 55 U/L (38-126); Amylase 62 U/L (30-110); Anion Gap 10 mmol/L; Blood Urea Nitrogen 11 mg/dL (7-17); Carbon Dioxide 26 mmol/L (22-30); Chloride 104 mmol/L (98-107); Glucose 102 mg/dL (74-99); Lipase 90 U/L (23-300); Non-African American GFR(CKD) >90 (>60 ml/min/1.73 sqM); Sodium 140 mmol/L (137-145); Total Bilirubin 0.8 mg/dL (0.2-1.3); Total Protein 7.5 g/dL (6.3-8.2)
[2022-09-01 09:36] LABS: Appearance,Urine Cloudy (Clear); Bacteria,Urine Rare /hpf; Bilirubin,Urine Negative (Negative); Blood,Urine Large (Negative); Color,Urine Light Red; Glucose,Urine (UA) Negative (Negative); Ketones,Urine 1+ (Negative); Leukocyte Esterase,Urine Moderate (Negative); Mucus,Urine Few /hpf; Nitrite,Urine Negative (Negative); Protein,Urine 1+ (Negative); RBC,Urine 2 /hpf (0-5); Specific Gravity,Urine 1.021 (1.001-1.035); Squamous Epithelial Cell,Urine 12 /hpf (0-4); Urobilinogen,Urine <2.0 mg/dL (<2.0); WBC,Urine 11 /hpf (0-5)
--- NOTE | 2022-09-01 10:55 | ED ---
Nausea/Vomiting/Diarrhea HPI - General Chief complaint: Nausea/Vomiting/Diarrhea Stated complaint: Vomiting blood Time Seen by Provider: 09/01/22 08:38 Source: patient, RN notes reviewed Mode of arrival: ambulatory Limitations: no limitations - History of Present Illness Initial comments: This a 37-year-old female presents emergency Department chief complaint of nausea vomiting diarrhea. Patient states she has not felt well recent she's had some recurrent issues states that she's had some scissors pass out. Patient states that she noted overnight that she started having emesis noted some blood streaks. Denies any localized abdominal pain. Patient does have hypokalemia and which has been evaluated by Dr. soares him. Patient denies any chance pre gnancy. Patient states her menstrual cycles very irregular given that she has PCOS - Related Data Home Medications Medication Instructions Recorded Confirmed Acetaminophen [Tylenol] 650 mg PO Q8H PRN 09/27/20 07/23/21 Previous Rx's Medication Instructions Recorded Meclizine [Antivert] 25 mg PO TID PRN #15 tab 07/23/21 Omeprazole [PriLOSEC] 40 mg PO DAILY #14 cap 09/01/22 Ondansetron Odt [Zofran Odt] 4 mg PO Q8HR PRN #10 tab 09/01/22 Allergies Allergy/AdvReac Type Severity Reaction Status Date / Time Penicillins Allergy Rash/Hives Verified 09/01/22 08:34 Sulfa (Sulfonamide Allergy Rash/Hives Verified 09/01/22 08:34 Antibiotics) Review of Systems ROS Statement: Those systems with pertinent positive or pertinent negative responses have been documented in the HPI. ROS Other: All systems not noted in ROS Statement are negative. 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, polycystic ovarian syndrome, heart murmur, GALLBLADDER DYSFUNCTION History of Any Multi-Drug Resistant Organisms: None Reported Past Surgical History: Appendectomy, Cholecystectomy Past Anesthesia/Blood Transfusion Reactions: No Reported Reaction, Motion Sickness, Postoperative Nausea & Vomiting (PONV) Past Psychological History: Anxiety, Depression Smoking Status: Never smoker Past Alcohol Use History: None Reported Past Drug Use History: None Reported - Past Family History Mother Family Medical History: Myocardial Infarction ([place]), Osteoarthritis ([place]) Father Family Medical History: COPD, Myocardial Infarction ([place]) General Exam Limitations: no limitations General appearance: alert, in no apparent distress Head exam: Present: atraumatic, normocephalic, normal inspection Eye exam: Present: normal appearance, PERRL, EOMI. Absent: scleral icterus, conjunctival injection, periorbital swelling ENT exam: Present: normal exam, mucous membranes moist Neck exam: Present: normal inspection. Absent: tenderness, meningismus, lymphadenopathy Respiratory exam: Present: normal lung sounds bilaterally. Absent: respiratory distress, wheezes, rales, rhonchi, stridor Cardiovascular Exam: Present: regular rate, normal rhythm, normal heart sounds. Absent: systolic murmur, diastolic murmur, rubs, gallop, clicks GI/Abdominal exam: Present: soft, normal bowel sounds. Absent: distended, tenderness, guarding, rebound, rigid Course Vital Signs 09/01/22 08:35 Temperature 98.5 F Pulse Rate 73 Respiratory 16 Rate Blood Pressure 131/86 O2 Sat by Pulse 96 Oximetry Medical Decision Making - Medical Decision Making 37-year-old presented for nausea vomiting diarrhea. Patient is well hydrated, given antiemetics feels improved. Patient did complain of some small streaks of blood in her emesis though she's had no recurrent episodes seem stable. Patient discharged on omeprazole, antiemetics. - Lab Data Result diagrams: 09/01/22 09:02 09/01/22 09:02 Lab Results 09/01/22 09/01/22 09/01/22 Range/Units 09:02 09:02 09:02 WBC 5.0 (3.8-10.6) k/uL RBC 4.86 (3.80-5.40) m/uL Hgb 13.8 (11.4-16.0) gm/dL Hct 40.7 (34.0-46.0) % MCV 83.7 (80.0-100.0) fL MCH 28.4 (25.0-35.0) pg MCHC 33.9 (31.0-37.0) g/dL RDW 13.5 (11.5-15.5) % Plt Count 250 (150-450) k/uL MPV 8.1 Neutrophils % 73 % Lymphocytes % 20 % Monocytes % 4 % Eosinophils % 1 % Basophils % 0 % Neutrophils # 3.6 (1.3-7.7) k/uL Lymphocytes # 1.0 (1.0-4.8) k/uL Monocytes # 0.2 (0-1.0) k/uL Eosinophils # 0.1 (0-0.7) k/uL Basophils # 0.0 (0-0.2) k/uL Sodium (137-145) mmol/L Potassium (3.5-5.1) mmol/L Chloride (98-107) mmol/L Carbon Dioxide (22-30) mmol/L Anion Gap mmol/L BUN (7-17) mg/dL Creatinine (0.52-1.04) mg/dL Est GFR (CKD-EPI)AfAm (>60 ml/min/1.73 sqM) Est GFR (CKD-EPI)NonAf (>60 ml/min/1.73 sqM) Glucose (74-99) mg/dL Plasma Lactic Acid [place] (0.7-2.0) mmol/L Calcium (8.4-10.2) mg/dL Total Bilirubin (0.2-1.3) mg/dL AST (14-36) U/L ALT (4-34) U/L Alkaline Phosphatase (38-126) U/L Total Protein (6.3-8.2) g/dL Albumin (3.5-5.0) g/dL Amylase (30-110) U/L Lipase (23-300) U/L Urine Color Light Red Urine Appearance Cloudy H (Clear) Urine pH 6.0 (5.0-8.0) Ur Specific [place] 1.021 (1.001-1.035) Urine Protein 1+ H (Negative) Urine Glucose (UA) Negative (Negative) Urine Ketones 1+ H (Negative) Urine Blood Large H (Negative) Urine Nitrite Negative (Negative) Urine Bilirubin Negative (Negative) Urine Urobilinogen <2.0 (<2.0) mg/dL Ur Leukocyte Esterase Moderate H (Negative) Urine RBC 2 (0-5) /hpf Urine WBC 11 H (0-5) /hpf Ur Squamous Epith Cells 12 H (0-4) /hpf Urine Bacteria Rare H (None) /hpf Urine Mucus Few H (None) /hpf Urine HCG, Qual Not Detected (Not Detectd) 09/01/22 09/01/22 Range/Units 09:02 09:02 WBC (3.8-10.6) k/uL RBC (3.80-5.40) m/uL Hgb (11.4-16.0) gm/dL Hct (34.0-46.0) % MCV (80.0-100.0) fL MCH (25.0-35.0) pg MCHC (31.0-37.0) g/dL RDW (11.5-15.5) % Plt Count (150-450) k/uL MPV Neutrophils % % Lymphocytes % % Monocytes % % Eosinophils % % Basophils % % Neutrophils # (1.3-7.7) k/uL Lymphocytes # (1.0-4.8) k/uL Monocytes # (0-1.0) k/uL Eosinophils # (0-0.7) k/uL Basophils # (0-0.2) k/uL Sodium 140 (137-145) mmol/L Potassium 4.0 (3.5-5.1) mmol/L Chloride 104 (98-107) mmol/L Carbon Dioxide 26 (22-30) mmol/L Anion Gap 10 mmol/L BUN 11 (7-17) mg/dL Creatinine 0.71 (0.52-1.04) mg/dL Est GFR (CKD-EPI)AfAm >90 (>60 ml/min/1.73 sqM) Est GFR (CKD-EPI)NonAf >90 (>60 ml/min/1.73 sqM) Glucose 102 H (74-99) mg/dL Plasma Lactic Acid [place] 0.8 (0.7-2.0) mmol/L Calcium 9.0 (8.4-10.2) mg/dL Total Bilirubin 0.8 (0.2-1.3) mg/dL AST 22 (14-36) U/L ALT 15 (4-34) U/L Alkaline Phosphatase 55 (38-126) U/L Total Protein 7.5 (6.3-8.2) g/dL Albumin 4.7 (3.5-5.0) g/dL Amylase 62 (30-110) U/L Lipase 90 (23-300) U/L Urine Color Urine Appearance (Clear) Urine pH (5.0-8.0) Ur Specific [place] (1.001-1.035) Urine Protein (Negative) Urine Glucose (UA) (Negative) Urine Ketones (Negative) Urine Blood (Negative) Urine Nitrite (Negative) Urine Bilirubin (Negative) Urine Urobilinogen (<2.0) mg/dL Ur Leukocyte Esterase (Negative) Urine RBC (0-5) /hpf Urine WBC (0-5) /hpf Ur Squamous Epith Cells (0-4) /hpf Urine Bacteria (None) /hpf Urine Mucus (None) /hpf Urine HCG, Qual (Not Detectd) Disposition Clinical Impression: Dehydration, Nausea vomiting and diarrhea Disposition: HOME SELF-CARE Condition: Stable Instructions (If sedation given, give patient instructions): Acute Nausea and Vomiting (ED), Acute Diarrhea (ED) Additional Instructions: Please return to the Emergency Department if symptoms worsen or any other concerns. Prescriptions: Omeprazole [PriLOSEC] 40 mg PO DAILY #14 cap Ondansetron Odt [Zofran Odt] 4 mg PO Q8HR PRN #10 tab PRN Reason: Nausea Is patient prescribed a controlled substance at d/c from ED?: No Referrals: None,Stated [Primary Care Provider] - 1-2 days Time of Disposition: 12:20
[2022-09-01] MEDS ORDERED: PANTOPRAZOLE 40 MG/10 ML VIAL IVP STA (11:20)
[2022-09-01] MEDS ORDERED: SODIUM CHLORIDE 0.9% 2,000 ML IV ONE (11:20)
== END 2022-09-01 12:49 | disposition home or self-care (01) ==
LOC: EC 08:33
DX: E86.0 Dehydration (principal); J45.909 Unspecified asthma, uncomplicated; K21.9 Gastro-esophageal reflux disease without esophagitis; Z88.0 Allergy status to penicillin; Z88.2 Allergy status to sulfonamides; Z79.899 Other long term (current) drug therapy
CPT/HCPCS: 36415; 80053; 82150; 83605; 83690; 85025; 81001; 81025; 87086; 99284; 96374; 96361; C9113

== ENCOUNTER → 2022-12-18 | Day surgery (SDC) | payer OTHER ==
[2022-12-16 12:38] VITALS: BMI 28.3
[~2022-12-18] MED LIST changes: +LIDOCAINE 1% (10MG/ML) FOR IV START INTRADERMA ONE; +LIDOCAINE 2% INJ 20 MG/ML (2 ML VIAL) ONE; +PROPOFOL 10 MG/ML 20 ML VIAL IV ONE
[2022-12-18 08:37] VITALS: RESP 16; TEMP 97.6
--- NOTE | 2022-12-18 09:02 | P.OP ---
Date of Procedure: 12/18/22 Preoperative Diagnosis: GERD Postoperative Diagnosis: Antral gastritis Small hiatal hernia Esophagitis Procedure(s) Performed: EGD Anesthesia: MAC Surgeon: Tenzin Clark Pathology: other (Antrum) Condition: stable Disposition: PACU Description of Procedure: The patient's placed on the endoscopy table in the lateral position. She received IV sedation. The gastroscope was oropharynx passed in the esophagus and the stomach. Scope was placed through the pylorus. The first and second portion of the duodenum. Normal. Scope was then brought back the antrum this. This was mildly inflamed. A biopsies performed. The scope was then retroflexed and the remainder the stomach appeared normal. There was a small hiatal hernia. The GE junction was at 38 cm per the distal esophagus appeared mildly inflamed. A biopsies performed. The proximal esophagus appeared normal. Scope was withdrawn.
[2022-12-18 09:45] VITALS: BP 129/70; PULSE 64
== END | disposition home or self-care (01) ==
LOC: ORWHC2ENDO 08:08
PROVIDERS: ATTEND Surgery
DX: K29.50 Unspecified chronic gastritis without bleeding (principal); K44.9 Diaphragmatic hernia without obstruction or gangrene; K21.00 Gastro-esophageal reflux disease with esophagitis, without bleeding; E28.2 Polycystic ovarian syndrome; K91.0 Vomiting following gastrointestinal surgery; Z88.0 Allergy status to penicillin; Z88.2 Allergy status to sulfonamides; Z79.899 Other long term (current) drug therapy; T75.3XXD Motion sickness, subsequent encounter
CPT/HCPCS: 81025; 88305; 43239; J2704; J2001

== ENCOUNTER 2023-11-24 20:33 | Emergency (ER) | payer OTHER ==
--- NOTE | 2023-11-24 20:49 | ED ---
Female Urogenital HPI - General Chief complaint: Vaginal Bleeding Stated complaint: Clotting/Vag Source: patient Mode of arrival: ambulatory Limitations: no limitations - History of Present Illness Initial comments: 38 year old female presenting to the ED with a chief complaint of vaginal bleeding. Patient states over the past few months seems that her periods have been more irregular than usual. Patient states since 11/10/23 has had vaginal bleeding however notes over the past 4 days this has increased and she is now seeing clots. Additionally notes that she is now having some lower abdominal cramping with this as well. Patient follows with Dr. Warner. No chest pain or shortness of breath. No other complaints. - Related Data Home Medications Medication Instructions Recorded Confirmed Acetaminophen [Tylenol] 650 mg PO Q8H PRN 09/27/20 01/16/23 Previous Rx's Medication Instructions Recorded Omeprazole [PriLOSEC] 40 mg PO DAILY #14 cap 09/01/22 Acetaminophen Tab [Tylenol] 650 mg PO Q6H #30 tab 01/16/23 Docusate [Colace] 100 mg PO BID #20 capsule 01/16/23 Ibuprofen [Motrin] 600 mg PO Q6HR PRN #40 tab 01/16/23 oxyCODONE HCL [OxyIR] 5 mg PO Q6H PRN 3 Days #10 tab 01/16/23 oxyCODONE HCL [OxyIR] 5 mg PO Q6H PRN 3 Days #10 tab 01/18/23 Allergies Allergy/AdvReac Type Severity Reaction Status Date / Time Penicillins Allergy Rash/Hives Verified 11/24/23 20:40 Sulfa (Sulfonamide Allergy Rash/Hives Verified 11/24/23 20:40 Antibiotics) Review of Systems ROS Statement: Those systems with pertinent positive or pertinent negative responses have been documented in the HPI. ROS Other: All systems not noted in ROS Statement are negative. 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, polycystic ovarian syndrome, heart murmur, HIATAL HERNIA History of Any Multi-Drug Resistant Organisms: None Reported Past Surgical History: Appendectomy, Cholecystectomy Additional Past Surgical History / Comment(s): EGD Past Anesthesia/Blood Transfusion Reactions: No Reported Reaction, Motion Sickness, Postoperative Nausea & Vomiting (PONV) Past Psychological History: Anxiety, Depression Smoking Status: Never smoker - Past Family History Mother Family Medical History: Myocardial Infarction ([place]), Osteoarthritis (OA) Father Family Medical History: COPD, Deep Vein Thrombosis (DVT), Myocardial Infarction ([place]) General Exam - General Exam Comments Initial Comments: Visual Physical Exam Vital signs reviewed General: Well-appearing, nontoxic, no acute distress. Head: Normocephalic, atraumatic Eyes: PERRLA, EOMI ENT: Airway patent Chest: Nonlabored breathing Skin: No visual rash, normal skin tone Neuro: Alert and oriented 3 Musculoskeletal: No gross abnormalities Limitations: no limitations General appearance: alert, in no apparent distress Eye exam: Present: normal appearance Neck exam: Present: normal inspection Respiratory exam: Present: normal lung sounds bilaterally Cardiovascular Exam: Present: regular rate, normal rhythm GI/Abdominal exam: Present: soft (Diffuse abdominal tenderness to palpation. No rebound guarding or rigidity.) Neurological exam: Present: alert, oriented X3 Skin exam: Present: warm, dry Course Vital Signs 11/24/23 11/24/23 20:36 23:14 Temperature 98.6 F 97.8 F Pulse Rate 66 64 Respiratory 16 17 Rate Blood Pressure 149/81 129/79 O2 Sat by Pulse 98 98 Oximetry Medical Decision Making - Medical Decision Making Was pt. sent in by a medical professional or institution (, PA, SERVICE INSPECTOR, urgent care, hospital, or fpc...) When possible be specific @ -No Did you speak to anyone other than the patient for history (EMS, parent, family, police, friend...)? What history was obtained from this source @ -No Did you review nursing and triage notes (agree or disagree)? Why? @ -I reviewed and agree with nursing and triage notes Were old charts reviewed (outside hosp., previous admission, EMS record, old EKG, old radiological studies, urgent care reports/EKG's, fpc records)? Report findings @ -No old charts were reviewed Differential Diagnosis (chest pain, altered mental status, abdominal pain women, abdominal pain men, vaginal bleeding, weakness, fever, dyspnea, syncope, headache, dizziness, GI bleed, back pain, seizure, CVA, palpatations, mental health, musculoskeletal)? @ -Differential Vaginal Bleeding: Spontaneous , threatened , molar , ectopic , bloody show, incompetent cervix, abruptioplacenta, placenta previa, uterine rupture, dysfunctional uterine bleeding, hemorrhage, uterine fibro ids, this is not meant to be an all-inclusive list. EKG interpreted by me (3pts min.). @ -None X-rays interpreted by me (1pt min.). @ -None done CT interpreted by me (1pt min.). @ -None done U/S interpreted by me (1pt. min.). @ -Transvaginal US interpreted by me showing is consistent with PCO last. No other acute findings. What testing was considered but not performed or refused? (CT, X-rays, U/S, labs)? Why? @ -None What meds were considered but not given or refused? Why? @ -None Did you discuss the management of the patient with other professionals (professionals i.e. , PA, SERVICE INSPECTOR, lab, RT, psych nurse, social services coordinator, animal care attendant, teacher, sales and service officer, child welfare caseworker)? Give summary @ -No Was smoking cessation discussed for >3mins.? @ -No Was critical care preformed (if so, how long)? @ -No Were there social determinants of health that impacted care today? How? (Homelessness, low income, unemployed, alcoholism, drug addiction, tr ansportation, low edu. Level, literacy, decrease access to med. care, halfway, rehab)? @ -No Was there de-escalation of care discussed even if they declined (Discuss DNR or withdrawal of care, Hospice)? DNR status @ -No What co-morbidities impacted this encounter? (DM, HTN, Smoking, COPD, CAD, Cancer, CVA, ARF, Chemo, Hep., AIDS, mental health diagnosis, sleep apnea, morbid obesity)? @ -None Was patient admitted / discharged? Hospital course, mention meds given and route, prescriptions, significant lab abnormalities, going to OR and other pertinent info. @ -Discharge 38-year-old female presenting to the ED with history of. Being more irregular than usual and over the past 4 days notes increased vaginal bleeding. Laboratory studies were reviewed. Labs including CBC, CMP, UA, hcg unremarkable. Transvaginal ultrasound did show findings consistent with PCOS. At this time vital signs stable afebrile. Discharged home in stable condition. Advised follow-up with her [facility]. Discussed return precautions patient verbalizes agreement. Undiagnosed new problem with uncertain prognosis? @ -No Drug Therapy requiring intensive monitoring for toxicity (Heparin, Nitro, Insulin, Cardizem)? @ -No Were any procedures done? @ -No Diagnosis/symptom? @ -PCOS Acute, or Chronic, or Acute on Chronic? @ -Acute Uncomplicated (without systemic symptoms) or Complicated (systemic symptoms)? @ -Uncomplicated Side effects of treatment? @ -No Exacerbation, Progression, or Severe Exacerbation? @ -No Poses a threat to life or bodily function? How? (Chest pain, [place], [place], pneumonia, PE, COPD, DKA, ARF, appy, cholecystitis, CVA, Diverticulitis, Homicidal, Suicidal, threat to staff... and all critical care pts) @ -No - Lab Data Result diagrams: 11/24/23 21:20 11/24/23 21:20 Lab Results 11/24/23 11/24/23 11/24/23 Range/Units 21:20 21:20 21:47 WBC 5.9 (3.8-10.6) k/uL RBC 4.24 (3.80-5.40) m/uL Hgb 12.3 (11.4-16.0) gm/dL Hct 35.8 (34.0-46.0) % MCV 84.4 (80.0-100.0) fL MCH 29.0 (25.0-35.0) pg MCHC 34.4 (31.0-37.0) g/dL RDW 12.9 (11.5-15.5) % Plt Count 253 (150-450) k/uL MPV 8.1 Neutrophils % 63 % Lymphocytes % 28 % Monocytes % 4 % Eosinophils % 2 % Basophils % 1 % Neutrophils # 3.7 (1.3-7.7) k/uL Lymphocytes # 1.7 (1.0-4.8) k/uL Monocytes # 0.3 (0-1.0) k/uL Eosinophils # 0.1 (0-0.7) k/uL Basophils # 0.0 (0-0.2) k/uL Sodium 138 (137-145) mmol/L Potassium 4.4 (3.5-5.1) mmol/L Chloride 104 (98-107) mmol/L Carbon Dioxide 26 (22-30) mmol/L Anion Gap 8 mmol/L BUN 14 (7-17) mg/dL Creatinine 0.75 (0.52-1.04) mg/dL Est GFR (CKD-EPI)AfAm >90 (>60 ml/min/1.73 sqM) Est GFR (CKD-EPI)NonAf >90 (>60 ml/min/1.73 sqM) Glucose 92 (74-99) mg/dL Calcium 9.3 (8.4-10.2) mg/dL Total Bilirubin 0.3 (0.2-1.3) mg/dL AST 21 (14-36) U/L ALT 21 (4-34) U/L Alkaline Phosphatase 59 (38-126) U/L Total Protein 7.1 (6.3-8.2) g/dL Albumin 4.1 (3.5-5.0) g/dL Urine Color Colorless Urine Appearance Clear (Clear) Urine pH 6.0 (5.0-8.0) Ur Specific [place] 1.005 (1.001-1.035) Urine Protein Negative (Negative) Urine Glucose (UA) Negative (Negative) Urine Ketones Negative (Negative) Urine Blood Large H (Negative) Urine Nitrite Negative (Negative) Urine Bilirubin Negative (Negative) Urine Urobilinogen <2.0 (<2.0) mg/dL Ur Leukocyte Esterase Negative (Negative) Urine RBC 9 H (0-5) /hpf Urine WBC 1 (0-5) /hpf Ur Squamous Epith Cells <1 (0-4) /hpf Urine HCG, Qual (Not Detectd) 11/24/23 Range/Units 21:47 WBC (3.8-10.6) k/uL RBC (3.80-5.40) m/uL Hgb (11.4-16.0) gm/dL Hct (34.0-46.0) % MCV (80.0-100.0) fL MCH (25.0-35.0) pg MCHC (31.0-37.0) g/dL RDW (11.5-15.5) % Plt Count (150-450) k/uL MPV Neutrophils % % Lymphocytes % % Monocytes % % Eosinophils % % Basophils % % Neutrophils # (1.3-7.7) k/uL Lymphocytes # (1.0-4.8) k/uL Monocytes # (0-1.0) k/uL Eosinophils # (0-0.7) k/uL Basophils # (0-0.2) k/uL Sodium (137-145) mmol/L Potassium (3.5-5.1) mmol/L Chloride (98-107) mmol/L Carbon Dioxide (22-30) mmol/L Anion Gap mmol/L BUN (7-17) mg/dL Creatinine (0.52-1.04) mg/dL Est GFR (CKD-EPI)AfAm (>60 ml/min/1.73 sqM) Est GFR (CKD-EPI)NonAf (>60 ml/min/1.73 sqM) Glucose (74-99) mg/dL Calcium (8.4-10.2) mg/dL Total Bilirubin (0.2-1.3) mg/dL AST (14-36) U/L ALT (4-34) U/L Alkaline Phosphatase (38-126) U/L Total Protein (6.3-8.2) g/dL Albumin (3.5-5.0) g/dL Urine Color Urine Appearance (Clear) Urine pH (5.0-8.0) Ur Specific [place] (1.001-1.035) Urine Protein (Negative) Urine Glucose (UA) (Negative) Urine Ketones (Negative) Urine Blood (Negative) Urine Nitrite (Negative) Urine Bilirubin (Negative) Urine Urobilinogen (<2.0) mg/dL Ur Leukocyte Esterase (Negative) Urine RBC (0-5) /hpf Urine WBC (0-5) /hpf Ur Squamous Epith Cells (0-4) /hpf Urine HCG, Qual Not Detected (Not Detectd) Disposition Clinical Impression: PCOS (polycystic ovarian syndrome) Disposition: HOME SELF-CARE Condition: Good Additional Instructions: Please return to the Emergency Department if symptoms worsen or any other concerns. Is patient prescribed a controlled substance at d/c from ED?: No Referrals: Devon Downs MD [Primary Care Provider] - 1-2 days Time of Disposition: 23:24
[2023-11-24 21:41] LABS: Basophils % (A) 1 %; Eosinophils # (A) 0.1 k/uL (0-0.7); Eosinophils % (A) 2 %; HCT 35.8 % (34.0-46.0); HGB 12.3 gm/dL (11.4-16.0); Lymphocytes # (A) 1.7 k/uL (1.0-4.8); Lymphocytes % (A) 28 %; MCHC 34.4 g/dL (31.0-37.0); MCV 84.4 fL (80.0-100.0); Mean Platelet Volume 8.1; Monocytes # (A) 0.3 k/uL (0-1.0); Monocytes % (A) 4 %; Neutrophils # (A) 3.7 k/uL (1.3-7.7); Neutrophils % (A) 63 %; Platelet Count 253 k/uL (150-450); RBC 4.24 m/uL (3.80-5.40); RDW 12.9 % (11.5-15.5); WBC 5.9 k/uL (3.8-10.6)
[2023-11-24 21:49] LABS: ALT 21 U/L (4-34); AST 21 U/L (14-36); African American GFR (CKD) >90 (>60 ml/min/1.73 sqM); Albumin 4.1 g/dL (3.5-5.0); Alkaline Phosphatase 59 U/L (38-126); Anion Gap 8 mmol/L; Blood Urea Nitrogen 14 mg/dL (7-17); Calcium 9.3 mg/dL (8.4-10.2); Carbon Dioxide 26 mmol/L (22-30); Chloride 104 mmol/L (98-107); Glucose 92 mg/dL (74-99); Non-African American GFR(CKD) >90 (>60 ml/min/1.73 sqM); Potassium 4.4 mmol/L (3.5-5.1); Sodium 138 mmol/L (137-145); Total Bilirubin 0.3 mg/dL (0.2-1.3); Total Protein 7.1 g/dL (6.3-8.2)
--- NOTE | 2023-11-24 22:12 | US ---
EXAMINATION TYPE: US pelvis complete transvag DATE OF EXAM: 11/24/2023 COMPARISON: NONE CLINICAL INDICATION: Female, 38 years old with history of vaginal bleeding w/ clots and pain; Vaginal bleeding since 11/10/23. Clots x 4-5 days. . Hx of PCOS TECHNIQUE: . Transabdominal sonographic images of the pelvis were acquired. Transvaginal sonographi c images were medically necessary to better assess the following anatomy: cervix/vagina Date of LMP: 11/10/23 EXAM MEASUREMENTS: Uterus: 10.5 x 6.2 x 3.9 cm Endometrial Stripe: 1.0 cm Right Ovary: 5.0 x 2.9 x 2.6 cm Left Ovary: 3.6 x 2.8 x 3.1 cm 1. Uterus: Anteverted Hyperechoic focus seen in vagina measuring 2.3 x 1.9 x 1.3cm transabdominal. When pt emptied her bladder she said a clot came out. This focus was not seen transvaginally. 2. Endometrium: Heterogeneous and vascular 3. Right Ovary: Multiple follicles seen 4. Left Ovary: Multiple follicles seen Spectral, color and waveform doppler imaging shows good arterial and venous flow within the ovaries ; there is no evidence for ovarian torsion. 5. Bilateral Adnexa: wnl 6. Posterior cul-de-sac: wnl Urinary bladder is present. Posterior wall is normal. IMPRESSION: 1. Multiple peripheral ovarian follicles compatible with PCOS. 2. Hypoechoic area within the vagina transabdominal sonography not visualized transvaginal sonography may be some hemorrhage blood clot.
[2023-11-24 23:16] LABS: Appearance,Urine Clear (Clear); Bilirubin,Urine Negative (Negative); Blood,Urine Large (Negative); Color,Urine Colorless; Glucose,Urine (UA) Negative (Negative); Ketones,Urine Negative (Negative); Leukocyte Esterase,Urine Negative (Negative); Nitrite,Urine Negative (Negative); Protein,Urine Negative (Negative); RBC,Urine 9 /hpf (0-5); Specific Gravity,Urine 1.005 (1.001-1.035); Squamous Epithelial Cell,Urine <1 /hpf (0-4); Urobilinogen,Urine <2.0 mg/dL (<2.0); WBC,Urine 1 /hpf (0-5)
[2023-11-24 23:35] VITALS: BP 129/79; PULSE 64; RESP 17; TEMP 97.8
== END 2023-11-24 23:35 | disposition home or self-care (01) ==
LOC: EC 20:33
DX: E28.2 Polycystic ovarian syndrome (principal); J45.909 Unspecified asthma, uncomplicated; Z88.2 Allergy status to sulfonamides; Z88.0 Allergy status to penicillin; Z86.59 Personal history of other mental and behavioral disorders
CPT/HCPCS: 36415; 76830; 76856; 80053; 81001; 81025; 85025; 93975; 99284

== ENCOUNTER 2024-12-21 10:01 | Emergency (ER) | payer MEDICAID ==
--- NOTE | 2024-12-21 10:36 | ED ---
Abdominal Pain HPI - General Chief Complaint: Abdominal Pain Stated Complaint: lightheaded, faint, confused Time Seen by Provider: 12/21/24 10:30 Source: patient, RN notes reviewed Mode of arrival: ambulatory Limitations: no limitations - History of Present Illness Initial Comments: 39-year-old female presenting for vaginal bleeding x 1 week. States last week she began to have vaginal spotting which has gradually increased in heaviness. She has associated right-sided abdominal pain that is described as intermittent and cramping. She was seen in the ER yesterday where she underwent pelvic ultrasound and was diagnosed with a right ruptured ovarian cyst. States that the vaginal bleeding is now improving however she states she feels lighthe aded today and endorses confusion described as difficulty putting words together to form sentences. States she has never had this before. Denies dysuria, urinary frequency, hematuria, vaginal discharge, concern for STDs, focal weaknesses. She is tolerating orals well. History of PCOS. She used to follow with Dr. Warner but has not seen her in about 8 years. History of kidney stones. - Related Data Home Medications Medication Instructions Recorded Confirmed No Known Home Medications 12/21/24 12/21/24 Allergies Allergy/AdvReac Type Severity Reaction Status Date / Time Penicillins Allergy Rash/Hives Verified 12/21/24 10:28 Sulfa (Sulfonamide Allergy Rash/Hives Verified 12/21/24 10:28 Antibiotics) Review of Systems ROS Statement: Those systems with pertinent positive or pertinent negative responses have been documented in the HPI. ROS Other: All systems not noted in ROS Statement are negative. 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, polycystic ovarian syndrome, heart murmur, HIATAL HERNIA History of Any Multi-Drug Resistant Organisms: None Reported Past Surgical History: Appendectomy, Cholecystectomy Additional Past Surgical History / Comment(s): EGD Past Anesthesia/Blood Transfusion Reactions: No Reported Reaction, Motion Sickness, Postoperative Nausea & Vomiting (PONV) Past Psychological History: Anxiety, Depression Smoking Status: Never smoker Past Alcohol Use History: Occasional Past Drug Use History: None Reported - Past Family History Mother Family Medical History: Myocardial Infarction (CA), Osteoarthritis (OA) Father Family Medical History: COPD, Deep Vein Thrombosis (DVT), Myocardial Infarction (CA) General Exam Limitations: no limitations General appearance: alert, in no apparent distress Head exam: Present: atraumatic, normocephalic, normal inspection Eye exam: Present: normal appearance, PERRL, EOMI. Absent: scleral icterus, conjunctival injection, periorbital swelling ENT exam: Present: normal exam, mucous membranes moist Neck exam: Present: normal inspection. Absent: tenderness, meningismus, lymphadenopathy Respiratory exam: Present: normal lung sounds bilaterally. Absent: respiratory distress, wheezes, rales, rhonchi, stridor Cardiovascular Exam: Present: regular rate, normal rhythm, normal heart sounds. Absent: systolic murmur, diastolic murmur, rubs, gallop, clicks GI/Abdominal exam: Present: soft, normal bowel sounds. Absent: distended, tenderness, guarding, rebound, rigid Back exam: Absent: CVA tenderness (R), CVA tenderness (L) Neurological exam: Present: alert, oriented X3, CN II-XII intact Psychiatric exam: Present: normal affect, normal mood Skin exam: Present: warm, dry, intact, normal color. Absent: rash Course Vital Signs 12/21/24 12/21/24 12/21/24 10:10 10:40 11:45 Temperature 98.5 F Pulse Rate 65 68 60 Respiratory 16 18 18 Rate Blood Pressure 117/74 122/62 125/81 O2 Sat by Pulse 98 100 98 Oximetry 12/21/24 13:16 Temperature 98.1 F Pulse Rate 59 L Respiratory 16 Rate Blood Pressure 117/69 O2 Sat by Pulse 98 Oximetry Medical Decision Making - Medical Decision Making Was pt. sent in by a medical professional or institution (, PA, DRIVER MATERIAL HANDLER, urgent care, hospital, or long term...) When possible be specific @ -No Did you speak to anyone other than the patient for history (EMS, parent, family, police, friend...)? What history was obtained from this source @ -No Did you review nursing and triage notes (agree or disagree)? Why? @ -I reviewed and agree with nursing and triage notes Were old charts reviewed (outside hosp., previous admission, EMS record, old EKG, old radiological studies, urgent care reports/EKG's, long term records)? Report findings @ -Yes, the ER chart reviewed from yesterday including ultrasound which reveals simple appearing right ovarian cyst with small amount of free fluid within the right adnexa, thickened endometrium Differential Diagnosis (chest pain, altered mental status, abdominal pain women, abdominal pain men, vaginal bleeding, weakness, fever, dyspnea, syncope, headache, dizziness, GI bleed, back pain, seizure, CVA, palpatations, mental health, musculoskeletal)? @ -Differential Vaginal Bleeding: Spontaneous , threatened , molar , ectopic , bloody show, incompetent cervix, abruptioplacenta, placenta previa, uterine rupture, dysfunctional uterine bleeding, hemorrhage, uterine fibroids, this is not meant to be an all-inclusive list. EKG interpreted by me (3pts min.). @ -As above X-rays interpreted by me (1pt min.). @ -None done CT interpreted by me (1pt min.). @ -[CT abdomen pelvis reveals postsurgical changes at GE junction possibly status post hiatal hernia repair, small hiatal hernia visualized, interval development of a small right paramedian ventral abdominal wall hernia containing omental fat, hernia sac measuring 4.7 x 2.2 cm extending through abdominal wall defect, 3.5 cm dominant follicle of functional cyst of the right ovary U/S interpreted by me (1pt. min.). @ -None done What testing was considered but not performed or refused? (CT, X-rays, U/S, labs)? Why? @ -None What meds were considered but not given or refused? Why? @ -None Did you discuss the management of the patient with other professionals (eduardo contreras i.e. , PA, DRIVER MATERIAL HANDLER, lab, RT, psych nurse, social work msw, printing assistant, teacher, highway patrol officer, family service caseworker)? Give summary @ -No Was smoking cessation discussed for >3mins.? @ -No Was critical care preformed (if so, how long)? @ -No Were there social determinants of health that impacted care today? How? (Homelessness, low income, unemployed, alcoholism, drug addiction, transportation, low edu. Level, literacy, decrease access to med. care, long term, rehab)? @ -No Was there de-escalation of care discussed even if they declined (Discuss DNR or withdrawal of care, Hospice)? DNR status @ -No What co-morbidities impacted this encounter? (DM, HTN, Smoking, COPD, CAD, Cancer, CVA, ARF, Chemo, Hep., AIDS, mental health diagnosis, sleep apnea, morbid obesity)? @ -None Was patient admitted / discharged? Hospital course, mention meds given and route, prescriptions, significant lab abnormalities, going to OR and other pertinent info. @ -Discharge. This is a 39-year-old female presenting with vaginal bleeding x 1 week with associated right-sided abdominal pain and lightheadedness. Was diagnosed with a right ruptured ovarian cyst yesterday. Vital signs within acceptable limits. Abdomen soft nontender. Neuro examination is unremarkable. Patient was provided with IV fluids and Tylenol. Lab work unremarkable. Urinalysis reveals large amount of red blood cells. Urine negative. CT abdomen pelvis reveals postsurgical changes small hiatal hernia and small right paramedial ventral abdominal wall hernia, 3.5 cm dominant follicle or functional cyst of right ovary. Results discussed with patient. Patient reports improvement of symptoms on reevaluation. Discussed there is no sign of emergent etiology causing symptoms today. Appropriate return precautions and follow-up care discussed. Case was discussed with the ED attending Dr. Wilcox Undiagnosed new problem with uncertain prognosis? @ -No Drug Therapy requiring intensive monitoring for toxicity (Heparin, Nitro, Insuli n, Cardizem)? @ -No Were any procedures done? @ -No Diagnosis/symptom? @ -Ruptured ovarian cyst, dysmenorrhea Acute, or Chronic, or Acute on Chronic? @ -Acute Uncomplicated (without systemic symptoms) or Complicated (systemic symptoms)? @ -Complicated Side effects of treatment? @ -No Exacerbation, Progression, or Severe Exacerbation? @ -No Poses a threat to life or bodily function? How? (Chest pain, USA, CA, pneumonia, PE, COPD, DKA, ARF, appy, cholecystitis, CVA, Diverticulitis, Homicidal, Suic idal, threat to staff... and all critical care pts) @ -No - Lab Data Result diagrams: 12/21/24 10:34 12/21/24 10:34 Lab Results 12/21/24 12/21/24 12/21/24 Range/Units 10:28 10:34 10:34 WBC 6.5 (3.8-10.6) k/uL RBC 4.26 (3.80-5.40) m/uL Hgb 12.4 (11.4-16.0) gm/dL Hct 36.8 (34.0-46.0) % MCV 86.4 (80.0-100.0) fL MCH 29.1 (25.0-35.0) pg MCHC 33.6 (31.0-37.0) g/dL RDW 13.0 (11.5-15.5) % Plt Count 233 (150-450) k/uL MPV 8.0 Neutrophils % 75 % Lymphocytes % 19 % Monocytes % 3 % Eosinophils % 2 % Basophils % 1 % Neutrophils # 4.8 (1.3-7.7) k/uL Lymphocytes # 1.2 (1.0-4.8) k/uL Monocytes # 0.2 (0-1.0) k/uL Eosinophils # 0.1 (0-0.7) k/uL Basophils # 0.0 (0-0.2) k/uL PT (10.0-12.5) sec INR (<1.2) APTT (22.0-30.0) sec Sodium 138 (137-145) mmol/L Potassium 3.9 (3.5-5.1) mmol/L Chloride 104 (98-107) mmol/L Carbon Dioxide 25 (22-30) mmol/L Anion Gap 9 mmol/L BUN 10 (7-17) mg/dL Creatinine 0.69 (0.52-1.04) mg/dL Est GFR (CKD-EPI)AfAm >90 (>60 ml/min/1.73 sqM) Est GFR (CKD-EPI)NonAf >90 (>60 ml/min/1.73 sqM) Glucose 110 H (74-99) mg/dL Plasma Lactic Acid Ash (0.7-2.0) mmol/L Calcium 8.9 (8.4-10.2) mg/dL Total Bilirubin 0.5 (0.2-1.3) mg/dL AST 15 (14-36) U/L ALT 12 (4-34) U/L Alkaline Phosphatase 44 (38-126) U/L Total Protein 6.5 (6.3-8.2) g/dL Albumin 3.9 (3.5-5.0) g/dL Lipase 90 (23-300) U/L Urine Color Urine Appearance (Clear) Urine pH (5.0-8.0) Ur Specific [place] (1.001-1.035) Urine Protein (Negative) Urine Glucose (UA) (Negative) Urine Ketones (Negative) Urine Blood (Negative) Urine Nitrite (Negative) Urine Bilirubin (Negative) Urine Urobilinogen (<2.0) mg/dL Ur Leukocyte Esterase (Negative) Urine RBC (0-5) /hpf Urine WBC (0-5) /hpf Ur Squamous Epith Cells (0-4) /hpf Urine Bacteria (None) /hpf Urine Mucus (None) /hpf Urine HCG, Qual (Not Detectd) Blood Type A Positive Blood Type Recheck A Pos Bld Type Recheck Status No 12/21/24 12/21/24 12/21/24 Range/Units 10:34 10:34 10:51 WBC (3.8-10.6) k/uL RBC (3.80-5.40) m/uL Hgb (11.4-16.0) gm/dL Hct (34.0-46.0) % MCV (80.0-100.0) fL MCH (25.0-35.0) pg MCHC (31.0-37.0) g/dL RDW (11.5-15.5) % Plt Count (150-450) k/uL MPV Neutrophils % % Lymphocytes % % Monocytes % % Eosinophils % % Basophils % % Neutrophils # (1.3-7.7) k/uL Lymphocytes # (1.0-4.8) k/uL Monocytes # (0-1.0) k/uL Eosinophils # (0-0.7) k/uL Basophils # (0-0.2) k/uL PT 10.8 (10.0-12.5) sec INR 1.0 (<1.2) APTT 23.3 (22.0-30.0) sec Sodium (137-145) mmol/L Potassium (3.5-5.1) mmol/L Chloride (98-107) mmol/L Carbon Dioxide (22-30) mmol/L Anion Gap mmol/L BUN (7-17) mg/dL Creatinine (0.52-1.04) mg/dL Est GFR (CKD-EPI)AfAm (>60 ml/min/1.73 sqM) Est GFR (CKD-EPI)NonAf (>60 ml/min/1.73 sqM) Glucose (74-99) mg/dL Plasma Lactic Acid Ash 1.4 (0.7-2.0) mmol/L Calcium (8.4-10.2) mg/dL Total Bilirubin (0.2-1.3) mg/dL AST (14-36) U/L ALT (4-34) U/L Alkaline Phosphatase (38-126) U/L Total Protein (6.3-8.2) g/dL Albumin (3.5-5.0) g/dL Lipase (23-300) U/L Urine Color Urine Appearance (Clear) Urine pH (5.0-8.0) Ur Specific [place] (1.001-1.035) Urine Protein (Negative) Urine Glucose (UA) (Negative) Urine Ketones (Negative) Urine Blood (Negative) Urine Nitrite (Negative) Urine Bilirubin (Negative) Urine Urobilinogen (<2.0) mg/dL Ur Leukocyte Esterase (Negative) Urine RBC (0-5) /hpf Urine WBC (0-5) /hpf Ur Squamous Epith Cells (0-4) /hpf Urine Bacteria (None) /hpf Urine Mucus (None) /hpf Urine HCG, Qual Not Detected (Not Detectd) Blood Type Blood Type Recheck Bld Type Recheck Status 12/21/24 Range/Units 10:51 WBC (3.8-10.6) k/uL RBC (3.80-5.40) m/uL Hgb (11.4-16.0) gm/dL Hct (34.0-46.0) % MCV (80.0-100.0) fL MCH (25.0-35.0) pg MCHC (31.0-37.0) g/dL RDW (11.5-15.5) % Plt Count (150-450) k/uL MPV Neutrophils % % Lymphocytes % % Monocytes % % Eosinophils % % Basophils % % Neutrophils # (1.3-7.7) k/uL Lymphocytes # (1.0-4.8) k/uL Monocytes # (0-1.0) k/uL Eosinophils # (0-0.7) k/uL Basophils # (0-0.2) k/uL PT (10.0-12.5) sec INR (<1.2) APTT (22.0-30.0) sec Sodium (137-145) mmol/L Potassium (3.5-5.1) mmol/L Chloride (98-107) mmol/L Carbon Dioxide (22-30) mmol/L Anion Gap mmol/L BUN (7-17) mg/dL Creatinine (0.52-1.04) mg/dL Est GFR (CKD-EPI)AfAm (>60 ml/min/1.73 sqM) Est GFR (CKD-EPI)NonAf (>60 ml/min/1.73 sqM) Glucose (74-99) mg/dL Plasma Lactic Acid Ash (0.7-2.0) mmol/L Calcium (8.4-10.2) mg/dL Total Bilirubin (0.2-1.3) mg/dL AST (14-36) U/L ALT (4-34) U/L Alkaline Phosphatase (38-126) U/L Total Protein (6.3-8.2) g/dL Albumin (3.5-5.0) g/dL Lipase (23-300) U/L Urine Color Light Yellow Urine Appearance Clear (Clear) Urine pH 6.5 (5.0-8.0) Ur Specific [place] 1.007 (1.001-1.035) Urine Protein Negative (Negative) Urine Glucose (UA) Negative (Negative) Urine Ketones Negative (Negative) Urine Blood Large H (Negative) Urine Nitrite Negative (Negative) Urine Bilirubin Negative (Negative) Urine Urobilinogen <2.0 (<2.0) mg/dL Ur Leukocyte Esterase Negative (Negative) Urine RBC >182 H (0-5) /hpf Urine WBC 4 (0-5) /hpf Ur Squamous Epith Cells 2 (0-4) /hpf Urine Bacteria Rare H (None) /hpf Urine Mucus Rare H (None) /hpf Urine HCG, Qual (Not Detectd) Blood Type Blood Type Recheck Bld Type Recheck Status - EKG Data -: EKG Interpreted by Me EKG Comments: EKG reveals sinus bradycardia with no ST changes. Ventricular rate 57 bpm, FL interval 162, QRS duration 94, QT/QTc 413/406 Disposition Clinical Impression: Ruptured ovarian cyst, Dysmenorrhea Disposition: HOME SELF-CARE Condition: Stable Instructions (If sedation given, give patient instructions): Ruptured Ovarian Cyst (ED) Additional Instructions: Follow-up with LOCK TENDER CHIEF OPERATOR as discussed. Please return to the Emergency Department if symptoms worsen or any other concerns. Is patient prescribed a controlled substance at d/c from ED?: No Referrals: None,Stated [Primary Care Provider] - 1-2 days Caroline Warner DO [Doctor of Osteopathic Medicine] - 1-2 days Time of Disposition: 12:59
[2024-12-21] MEDS: SODIUM CHLORIDE 0.9% 1,000 ML IV STA (10:37)
[2024-12-21] MEDS: ACETAMINOPHEN TAB 500 MG TAB PO STA (10:38)
[2024-12-21 10:48] LABS: Basophils % (A) 1 %; Eosinophils # (A) 0.1 k/uL (0-0.7); Eosinophils % (A) 2 %; HCT 36.8 % (34.0-46.0); HGB 12.4 gm/dL (11.4-16.0); Lymphocytes # (A) 1.2 k/uL (1.0-4.8); Lymphocytes % (A) 19 %; MCH 29.1 pg (25.0-35.0); MCHC 33.6 g/dL (31.0-37.0); MCV 86.4 fL (80.0-100.0); Monocytes # (A) 0.2 k/uL (0-1.0); Monocytes % (A) 3 %; Neutrophils # (A) 4.8 k/uL (1.3-7.7); Neutrophils % (A) 75 %; Platelet Count 233 k/uL (150-450); RBC 4.26 m/uL (3.80-5.40); WBC 6.5 k/uL (3.8-10.6)
[2024-12-21 10:58] LABS: Partial Thromboplastin Time 23.3 sec (22.0-30.0); Prothrombin Time 10.8 sec (10.0-12.5)
[2024-12-21 11:04] LABS: African American GFR (CKD) >90 (>60 ml/min/1.73 sqM); Anion Gap 9 mmol/L; Blood Urea Nitrogen 10 mg/dL (7-17); Carbon Dioxide 25 mmol/L (22-30); Chloride 104 mmol/L (98-107); Glucose 110 mg/dL (74-99); Potassium 3.9 mmol/L (3.5-5.1); Sodium 138 mmol/L (137-145)
[2024-12-21 11:05] LABS: ALT 12 U/L (4-34); AST 15 U/L (14-36); Albumin 3.9 g/dL (3.5-5.0); Alkaline Phosphatase 44 U/L (38-126); Calcium 8.9 mg/dL (8.4-10.2); Lipase 90 U/L (23-300); Non-African American GFR(CKD) >90 (>60 ml/min/1.73 sqM); Total Bilirubin 0.5 mg/dL (0.2-1.3); Total Protein 6.5 g/dL (6.3-8.2)
[2024-12-21 11:19] LABS: Appearance,Urine Clear (Clear); Bacteria,Urine Rare /hpf; Bilirubin,Urine Negative (Negative); Blood,Urine Large (Negative); Color,Urine Light Yellow; Glucose,Urine (UA) Negative (Negative); Ketones,Urine Negative (Negative); Leukocyte Esterase,Urine Negative (Negative); Mucus,Urine Rare /hpf; Nitrite,Urine Negative (Negative); PH, Urine 6.5 (5.0-8.0); Protein,Urine Negative (Negative); RBC,Urine >182 /hpf (0-5); Specific Gravity,Urine 1.007 (1.001-1.035); Squamous Epithelial Cell,Urine 2 /hpf (0-4); Urobilinogen,Urine <2.0 mg/dL (<2.0); WBC,Urine 4 /hpf (0-5)
--- NOTE | 2024-12-21 12:06 | CT ---
EXAMINATION TYPE: CT abdomen pelvis wo con DATE OF EXAM: 12/21/2024 11:54 AM COMPARISON: 08/11/2018 CLINICAL INDICATION: Female, 39 years old with history of right flank pain, flank pain x 3 days, TECHNIQUE: Contiguous axial scanning of the abdomen and pelvis without IV contrast. Coronal and sagit ankush reconstructions performed. CT DLP: 540.7 mGycm. Automated exposure control for dose reduction was used. FINDINGS: The heart is normal size without pericardial effusion. Minimal nodular subpleural atelectasis lower l ungs with some strandy atelectasis as well. No pleural effusion. There is a tiny hiatal hernia present with interval postsurgical change at the GE junction possibly r elating to prior hiatal hernia repair. Noncontrast appearance of the liver, adrenal glands, kidneys, spleen, and pancreas show no gross abno rmality. No dilated small bowel, free fluid, or free air. No mesenteric or retroperitoneal lymphadenopathy. The appendix is not identified. No secondary findings of acute appendicitis in the right lower quadra nt. No significant stool burden. No pericolonic inflammatory change. Tiny fatty umbilical hernia. There is a new right paramedian ventral abdominal wall hernia containing omental fat above the level of the umbilicus. This measures 4.7 x 2.2 cm and extends through a 1.3 cm abdominal wall defect. Some minimal fat stranding at the neck of the hernia. Mild circumferential bladder wall thickening. Small pelvic phleboliths on the right. Uterus anteverte d. Both ovaries are visualized. There is a 3.5 cm cyst of the right ovary. No abnormal fluid collecti on in the pelvis or pelvic lymphadenopathy. Bones: Moderate degenerative disc disease L5-S1. IMPRESSION: 1. Interval postsurgical change at the GE junction. Possibly relating to hiatal hernia repair. Howeve r, a small hiatal hernia is visualized. Correlate for any recurrent symptoms and correlate as to the need to refer the patient back to her surgeon. 2. Interval development of a small right paramedian ventral abdominal wall hernia containing omental fat. Hernia sac measures 4.7 x 2.2 cm extending through a narrow, 1.3 cm wide abdominal wall defect. Mild fat stranding at the neck of the hernia may indicate some mild inflammation. Correlate for any p oint tenderness. 3. Mild circumferential bladder wall thickening. Correlate to exclude cystitis. 4. A 3.5 cm dominant follicle or functional cyst of the right ovary. [facility], , 12/21/2024 12:04 PM
[2024-12-21 13:21] VITALS: BP 117/69; PULSE 59; RESP 16; TEMP 98.1
== END 2024-12-21 13:39 | disposition home or self-care (01) ==
LOC: EC 10:01
DX: N83.01 Follicular cyst of right ovary (principal); N94.6 Dysmenorrhea, unspecified; Z88.2 Allergy status to sulfonamides; Z88.0 Allergy status to penicillin
CPT/HCPCS: 36415; 74176; 80053; 81001; 81025; 83605; 83690; 85025; 85610; 85730; 86900; 86901; 93005; 96360; 99284